=== PATIENT | female | born 1965 | race American Indian/Alaskan Native ===

== ENCOUNTER 2016-12-18 07:50 | Inpatient (IN) | payer SELFPAY ==
[2016-12-18] MEDS ORDERED: ATROVENT IH ONE (12:42)
--- NOTE | 2016-12-18 13:48 | History and Physical Report ---
History of Present Illness Date of examination: 12/18/16 Chief complaint: SOB History of present illness: 51-year-old woman with a history of hypertension, diabetes, COPD, CHF, hypothyroidism, obstructive sleep apnea, morbid obesity comes [facility] emergency room because of severe worsening acute onset today of shortness of breath and cough productive of yellow phlegm, Patient denies chest pain, palpitation, abdominal pain, hematochezia, dysuria, frequency, focal weakness, dysarthria, fever, chills, polydipsia, polyuria, hot or cold intolerance, easy bruisability , or rash or bleeding from mucosal membrane, rhinorrhea, epistaxis, earache, tinnitus, blurry vision, eye discharge, anxiety, depression. Other review of systems negative Past History Past Medical History: other (as hpi) Past Surgical History: (x 2) Social history: full code. denies: smoking, alcohol abuse, prescription drug abuse, IV drug use Family history: diabetes, hypertension, other Medications and Allergies Allergies Allergy/AdvReac Type Severity Reaction Status Date / Time No Known Allergies Allergy Unverified 09/19/14 04:40 Home Medications Medication Instructions Recorded Confirmed Last Taken Type Levothyroxine [Synthroid] 25 mcg PO QAM #30 tablet 01/22/16 11/05/16 08/19/16 Rx Albuterol Sulfate [Ventolin HFA] 2 puff IH Q4H PRN #1 hfa.aer.ad 07/04/1608/20/16 Rx Moxifloxacin 0.5% [Vigamox] 1 drops OU Q8HR bottle 08/24/16 11/05/16 11/04/16 Rx 1 Arformoterol Nebu [Brovana Nebu] 15 mcg IH Q12HRT #60 ml 10/04/16 11/05/1611/03 16:00 Rx Aspirin 81 mg PO DAILY #30 tab.chew 10/04/16 11/05/16 Unknown Rx AtorvaSTATin [Lipitor] 40 mg PO QHS #30 tablet 10/04/16 11/05/16 Unknown Rx FLUoxetine [PROzac] 20 mg PO QDAY #30 capsule 10/04/16 11/05/16 Unknown Rx Ferrous Sulfate [Feosol 325 MG tab] 325 mg PO QDAY #90 tablet 10/04/16 11/05/16 Unknown Rx Furosemide [Lasix TAB] 20 mg PO QDAY #30 tablet 10/04/16 11/05/16 Unknown Rx Insulin Glulisine [Apidra] 0 units SUB-Q ACHS 30 Days 10/04/16 11/05/16 Unknown Rx Insulin NPH/Regular [NovoLIN 70/30] 35 unit SUB-Q BIDDIAB #1 vial 10/04/1611/05 Unknown Rx Albuterol Sulfate [Albuterol 0.63% 0.63 mg IH TID PRN #1 vial.neb 11/10/16 Unknown Rx NEBS] Levofloxacin [Levaquin] 750 mg PO QDAY #4 tablet 11/10/16 Unknown Rx Prednisone [predniSONE 10 mg 10 mg PO .TAPER #1 tab.ds.pk 11/10/16 Unknown Rx (6-Day Pack, 21 Tabs)] Tiotropium [place] [Spiriva 4 gm IH DAILY #30 mist.inhal 11/10/16 Unknown Rx Respimat] Active Meds: Active Medications Heparin Sodium (Porcine) (Heparin) 5,000 unit SUB-Q Q8HR [place] Review of Systems All systems: negative (as HPI and all other ROS reviewed and negative.) Exam - Physical Exam Narrative exam: VSS reviewed GEN: extreme obesity, >40 lbs, ill appearing, NAD, AWAKE, ALERT, ORIENTATED x 3 HEENT: NCAT, PERRL, EOMI, OP CLEAR NECK: SUPPLE, NO THYROMEGALY, NO JVD, NO LAD CVS: RRR, NORMAL S1S2 LUNGS/CHEST: bilateral rhonchi, NORMAL CHEST EXPANSION B, GOOD AIR ENTRY B ABD: SOFT NTND, GBS, NO REBOUND OR GUARDING EXT/SKIN: NO SIGNIFICANT EDEMA OR RASH MSK: FROM X 4 EXTREMITIES NEURO: CN 2-12 GROSSLY INTACT, NO FOCAL DEFICITS PSY: CALM Results - Imaging and Cardiology Chest x-ray: image reviewed Assessment and Plan [employer] EMR is not functioning properly, vitals and labs not crossing over into the system. Patient is a 51-year-old woman with a history of chronic respiratory failue on 3 liters of o2 at home due to COPD, hypertension, diabetes, CHF, hypothyroidism , obstructive sleep apnea, extreme obesity who presents to [facility] emergency room because of severe worsening acute onset today of shortness of breath and cough productive of yellow phlegm, Patient denies chest pain, palpitation, abdominal pain, hematochezia, dysuria, frequency, focal weakness, dysarthria, fever, chills, polydipsia, polyuria, hot or cold intolerance, easy bruisability, or rash or bleeding from mucosal membrane, rhinorrhea, epistaxis, earache, tinnitus , blurry vision, eye discharge, anxiety, depression. Other review of systems negative. pO2 only 58 on 3 liters. 1. Acute on chronic combined respiratory failure: increase O2 2. Acute exacerbation COPD: IV steroids, broad-spectrum antibiotic and nebulizer treatments 3. Extreme Obesity with suspected DINESH: needs sleep study, she agrees and this time she will re-schedule sleep study. 4. DVT prophylaxis: SCDs and subcutaneous Lovenox 5. Uncontrolled type 2 diabetes mellitus: Add sliding-scale insulin Full code Disposition: Inpatient admission
[2016-12-18] MEDS ORDERED: TYLENOL PO PRN (14:14)
[2016-12-18] MEDS ORDERED: ZOFRAN IV PRN (14:14)
[2016-12-18] MEDS ORDERED: PROVENTIL IH PRN (14:15)
[2016-12-18] MEDS: BABY ASPIRIN PO SCH (15:28)
--- NOTE | 2016-12-18 15:34 | Admit Criteria Form ---
Admission Criteria Documentation: COPD Clinical Indications for Admission to Inpatient Care (Place 'X' for any and all applicable criteria): Admission is indicated for ANY ONE of the following (1)(2)(3): [ ]I. Acute exacerbation by high-risk comorbidity (e.g., pneumonia, dysrhythmia, heart failure, pleural effusion, pneumothorax) or severe underlying COPD (e.g., steroid dependent) [ X]II. Inpatient admission required rather than observation care (see Chronic Obstructive Pulmonary Disease: Observation Care) because of ANY ONE of the following: [ X]a) New or pre-existing signs or symptoms of COPD (eg, dyspnea or Tachypnea at rest or with minimal activity) that persist despite outpatient and observation care treatment [ ]b) New-onset hypoxemia (room air SaO2 less than 90%, PO2 less than 60 mm Hg (8.0 kPa)) that persists despite outpatient and observation care treatment [ ]c) Worsening of pre-existing hypoxemia (eg, new or increased requirement for supplemental oxygen to maintain oxygenation at baseline level) that persists despite outpatient and observation care treatment, with oxygen treatment needs performable only in acute inpatient setting [ ]d) Hypercarbia (PCO2 greater than 40 mm Hg (5.3 kPa))-induced respiratory acidosis (pH less than 7.35) that persists despite outpatient and observation care treatment [ ]e) Supplemental oxygen or respiratory treatments for over 24 hours that are performable only in acute inpatient setting [ ]f) Chest tube placement with active evacuation (e.g., suction, drainage) (5) [ ]g) Other condition, treatment or monitoring requiring inpatient admission [ ]III. Planned invasive surgical or diagnostic procedures requiring acute- care hospitalization [X ]IV. Acute respiratory failure (e.g., uncompensated hypercarbia, severe hypoxemia) [ ]V. Severe comorbid condition (e.g., severe steroid myopathy, acute vertebral fracture) that has acutely worsened pulmonary function [ ]. Confusion state, lethargy, obtundation, stupor or coma Extended stay beyond goal length of stay may be needed for (31)(32): [ ]a ) Respiratory Failure. [ ]b) Severe or persisting hypoxemia or hypercarbia [ ]c) Severe or persistent dyspnea [ ]d) Comorbidities (e.g. chronic heart failure, atrial fibrillation with rapid response, pneumonia) [ ]e) Malnutrition The original [facility] content created by [facility] has been revised. The portions of the content which have been revised are identified through the use of italic text or in bold, and [facility] has neither reviewed nor approved the modified material. All other unmodified content is copyright [facility]. Please see references footnoted in the original [facility] edition 2016 Admission Criteria Met: Yes
--- NOTE | 2016-12-18 16:48 | XRay Report ---
Right knee: There is narrowing of the medial joint space with periarticular spurs. The articular margins appear generally preserved. There is relatively good alignment of the knee. The patient has an abundance of soft tissues. There is no obvious effusion but I do not see the bursa well. Impression: Degenerative medial joint compartment changes. Compromised evaluation for joint effusion. Portable chest: The lungs appear generally clear. The heart may be enlarged but there is no overt vascular congestion. No obvious interval change compared to November 04, 2016.
[2016-12-18] MEDS: DUONEB 0.5 MG-3 MG/3 ML SOLN IH SCH ×2 (17:38→19:21)
[2016-12-18] MEDS ORDERED: DUONEB 0.5 MG-3 MG/3 ML SOLN IH ONE (19:15)
[2016-12-18] MEDS ORDERED: BROVANA NEBU IH ONE (19:16)
[2016-12-18] MEDS: BROVANA NEBU IH SCH (19:21)
[2016-12-18] MEDS: VIGAMOX OU SCH (23:50)
[2016-12-19] MEDS: VIGAMOX OU SCH ×3 (05:30→23:27)
[2016-12-19] MEDS: DUONEB 0.5 MG-3 MG/3 ML SOLN IH SCH ×4 (07:59→20:38)
[2016-12-19] MEDS: BROVANA NEBU IH SCH ×2 (07:59→20:25)
[2016-12-19] MEDS: ROCEPHIN/NS 1 GM/50 ML 1 GM/50 ML BAG IV SCH (10:21)
[2016-12-19] MEDS: PROzac PO SCH (10:24)
[2016-12-19] MEDS: SYNTHROID PO SCH (10:24)
[2016-12-19] MEDS: FEOSOL PO SCH (10:24)
[2016-12-19] MEDS: LASIX PO SCH (10:24)
[2016-12-19] MEDS: HEPARIN SUB-Q SCH ×3 (10:25→23:32)
[2016-12-19] MEDS: ZITHROMAX 500 MG in NACL 0.9% 250ML 250 ML IV SCH (10:25)
[2016-12-19] MEDS: BABY ASPIRIN PO SCH (10:25)
[2016-12-19] MEDS: NOVOLOG SUB-Q SCH ×2 (17:11→23:26)
--- NOTE | 2016-12-19 19:18 | Progress Note ---
Assessment and Plan Assessment and plan: 1. Acute on chronic respiratory failure Secondary to a COPD exacerbation combined with DINESH/OHS due to her morbid obesity 2. COPD exacerbation With failed outpatient treatment Started on antibiotics, IV corticosteroids, inhaled bronchodilators, supplemental oxygen, BiPAP 3. Morbid obesity Counseled regarding importance of losing weight and lifestyle changes 4. DINESH/OHS On CPaP at home, but not using it (setting have not been adjusted for years) 5. DM Accu-checks and SSI 6. HTN BP controlled on Lasix 7. HPL On statin 8. Hypothyroidism On Levothyroxine 9. Iron deficient anemia On supplementation 10. Depression On Fluoxetine 11. DVT prophylaxis History Interval history: significantly SOB, wheezing, on BiPAP Hospitalist Physical - Constitutional Vitals: Temp Pulse Resp BP Pulse Ox 99.0 F 88 18 137/78 94 12/19/16 07:20 12/19/16 17:10 12/19/16 17:10 12/19/16 15:25 12/19/16 08:02 General appearance: Present: mild distress, other (morbidly obese) - EENT Eyes: Present: PERRL, EOM intact - Neck Neck: Present: other (large neck). Absent: enlarged thyroid, masses or JVD - Respiratory Respiratory effort: labored Respiratory: bilateral: diminished, rhonchi, wheezing - Cardiovascular Rhythm: regular Heart Sounds: Present: S1 & S2. Absent: systolic murmur - Extremities Extremities: no ischemia - Abdominal General gastrointestinal: soft, non-tender, non-distended, normal bowel sounds - Integumentary Integumentary: Present: warm, dry. Absent: jaundice, rash - Neurologic Neurologic: CNII-XII intact, no focal deficits Results - Labs Labs: Laboratory Last Values POC Glucose 406 (70-105) H 12/19/16 17:02 - Imaging and Cardiology Chest x-ray: image reviewed (no acute process)
[2016-12-20] MEDS: VIGAMOX OU SCH ×3 (06:42→21:33)
[2016-12-20] MEDS: HEPARIN SUB-Q SCH ×3 (06:49→21:36)
[2016-12-20] MEDS: NOVOLOG SUB-Q SCH ×4 (08:45→22:03)
[2016-12-20] MEDS: DUONEB 0.5 MG-3 MG/3 ML SOLN IH SCH ×4 (09:45→19:18)
[2016-12-20] MEDS: BROVANA NEBU IH SCH ×2 (09:45→19:18)
[2016-12-20] MEDS: FEOSOL PO SCH (10:40)
[2016-12-20] MEDS: PROzac PO SCH (10:40)
[2016-12-20] MEDS: LASIX PO SCH (10:40)
[2016-12-20] MEDS: SYNTHROID PO SCH (10:40)
[2016-12-20] MEDS: BABY ASPIRIN PO SCH (10:40)
[2016-12-20] MEDS: ZITHROMAX 500 MG in NACL 0.9% 250ML 250 ML IV SCH (10:44)
[2016-12-20] MEDS: ROCEPHIN/NS 1 GM/50 ML 1 GM/50 ML BAG IV SCH (13:04)
--- NOTE | 2016-12-20 19:16 | Progress Note ---
Assessment and Plan Assessment and plan: 1. Acute on chronic respiratory failure Secondary to a COPD exacerbation combined with DINESH/OHS due to her morbid obesity 2. COPD exacerbation With failed outpatient treatment Continue antibiotics, IV corticosteroids (dose decreased), inhaled bronchodilators, supplemental oxygen, BiPAP 3. Morbid obesity Counseled regarding importance of losing weight and lifestyle changes 4. DINESH/OHS On CPAP at home, but not using it (setting have not been adjusted for years) 5. DM Accu-checks and SSI; BS elebvated due to CS 6. HTN BP controlled on Lasix 7. HPL On statin 8. Hypothyroidism On Levothyroxine 9. Iron deficient anemia On supplementation 10. Depression On Fluoxetine 11. DVT prophylaxis Heparin subcutaneous History Interval history: still SOB, wheezing less; encouraged to increase her activity - out of bed, walk to the restroom at least Hospitalist Physical - Constitutional Vitals: Temp Pulse Resp BP Pulse Ox 97.8 F 85 18 157/86 98 12/20/16 12:00 12/20/16 15:51 12/20/16 15:51 12/20/16 12:00 12/20/16 12:00 General appearance: Present: mild distress, other (morbidly obese) - Neck Neck: Present: supple. Absent: enlarged thyroid, masses or JVD - Respiratory Respiratory effort: labored Respiratory: bilateral: diminished, rhonchi, wheezing - Cardiovascular Rhythm: regular Heart Sounds: Present: S1 & S2. Absent: systolic murmur - Extremities Extremities: no ischemia - Abdominal General gastrointestinal: soft, non-tender, non-distended, normal bowel sounds - Integumentary Integumentary: Present: warm, dry. Absent: jaundice, rash - Neurologic Neurologic: CNII-XII intact, no focal deficits Results - Labs Labs: Laboratory Last Values POC Glucose 436 (70-105) H 12/20/16 15:49
[2016-12-21] MEDS: VIGAMOX OU SCH ×3 (05:07→22:25)
[2016-12-21] MEDS: HEPARIN SUB-Q SCH ×3 (05:08→22:25)
[2016-12-21] MEDS: NOVOLOG SUB-Q SCH ×4 (06:54→23:00)
[2016-12-21] MEDS: FEOSOL PO SCH (09:24)
[2016-12-21] MEDS: PROzac PO SCH (09:24)
[2016-12-21] MEDS: LASIX PO SCH (09:24)
[2016-12-21] MEDS: SYNTHROID PO SCH (09:24)
[2016-12-21] MEDS: BABY ASPIRIN PO SCH (09:24)
[2016-12-21] MEDS: DUONEB 0.5 MG-3 MG/3 ML SOLN IH SCH ×4 (10:12→20:02)
[2016-12-21] MEDS: BROVANA NEBU IH SCH ×2 (10:12→20:02)
[2016-12-21] MEDS: NORCO 5/325 PO PRN ×2 (11:14→15:53)
[2016-12-21] MEDS: ROCEPHIN/NS 1 GM/50 ML 1 GM/50 ML BAG IV SCH (11:49)
[2016-12-21] MEDS: ZITHROMAX 500 MG in NACL 0.9% 250ML 250 ML IV SCH (11:50)
--- NOTE | 2016-12-21 18:25 | Progress Note ---
Assessment and Plan Assessment and plan: 1. Acute on chronic respiratory failure Secondary to a COPD exacerbation combined with DINESH/OHS due to her morbid obesity 2. COPD exacerbation With failed outpatient treatment Continue antibiotics, IV corticosteroids (taper), inhaled bronchodilators, supplemental oxygen, BiPAP 3. Morbid obesity Counseled regarding importance of losing weight and lifestyle changes 4. DINESH/OHS On CPAP at home, but not using it (setting have not been adjusted for years) 5. DM Accu-checks and SSI; BS elebvated due to CS 6. HTN BP controlled on Lasix 7. HPL On statin 8. Hypothyroidism On Levothyroxine 9. Iron deficient anemia On supplementation 10. Depression On Fluoxetine 11. DVT prophylaxis Heparin subcutaneous History Interval history: SOB improved, feeling better; decond due to her morbid obesity Hospitalist Physical - Constitutional Vitals: Temp Pulse Resp BP Pulse Ox 97.9 F 76 18 122/92 93 12/21/16 08:00 12/21/16 16:44 12/21/16 16:44 12/21/16 08:00 12/21/16 18:01 General appearance: Present: no acute distress, obese (morbidly) - EENT Eyes: Present: PERRL, EOM intact - Neck Neck: Present: supple. Absent: enlarged thyroid, masses or JVD - Respiratory Respiratory effort: labored (with minimal activity) Respiratory: bilateral: diminished, wheezing, negative: rales - Cardiovascular Rhythm: regular Heart Sounds: Present: S1 & S2. Absent: systolic murmur - Extremities Extremities: no ischemia - Abdominal General gastrointestinal: soft, non-tender, non-distended, normal bowel sounds - Psychiatric Psychiatric: cooperative - Neurologic Neurologic: CNII-XII intact, no focal deficits Results - Labs Labs: Laboratory Last Values POC Glucose 363 (70-105) H 12/21/16 17:26
[2016-12-22] MEDS: HEPARIN SUB-Q SCH ×3 (05:39→21:54)
[2016-12-22] MEDS: VIGAMOX OU SCH ×3 (05:41→21:53)
[2016-12-22] MEDS: DUONEB 0.5 MG-3 MG/3 ML SOLN IH SCH ×3 (08:23→19:49)
[2016-12-22] MEDS: BROVANA NEBU IH SCH ×2 (08:23→19:49)
[2016-12-22] MEDS: NOVOLOG SUB-Q SCH ×4 (08:43→23:36)
[2016-12-22] MEDS: NORCO 5/325 PO PRN ×2 (09:20→14:59)
[2016-12-22] MEDS: FEOSOL PO SCH (09:21)
[2016-12-22] MEDS: SYNTHROID PO SCH (09:21)
[2016-12-22] MEDS: PROzac PO SCH (09:22)
[2016-12-22] MEDS: BABY ASPIRIN PO SCH (09:22)
[2016-12-22] MEDS: LASIX PO SCH (09:22)
[2016-12-22] MEDS: ROCEPHIN/NS 1 GM/50 ML 1 GM/50 ML BAG IV SCH (09:23)
[2016-12-22] MEDS: DELTASONE PO SCH (09:24)
[2016-12-22] MEDS: ZITHROMAX 500 MG in NACL 0.9% 250ML 250 ML IV SCH (11:32)
--- NOTE | 2016-12-22 16:47 | Progress Note ---
Assessment and Plan Assessment and plan: 1. Acute on chronic respiratory failure Secondary to a COPD exacerbation combined with DINESH/OHS due to her morbid obesity 2. COPD exacerbation With failed outpatient treatment Continue antibiotics, corticosteroids switched to po and dose decreased, inhaled bronchodilators, supplemental oxygen, CPAP as needed 3. Morbid obesity Counseled regarding importance of losing weight and lifestyle changes 4. DINESH/OHS On CPAP at home, but not using it (setting have not been adjusted for years) 5. DM Accu-checks and SSI; BS elebvated due to CS 6. HTN BP controlled on Lasix 7. HPL On statin 8. Hypothyroidism On Levothyroxine 9. Iron deficient anemia On supplementation 10. Depression On Fluoxetine 11. DVT prophylaxis Heparin subcutaneous 12.Discharge planning issues Consult piano case and bench assembler for assistance at discharge (PCP, home oxygen, CPAP) History Interval history: SOB improved, feeling better; decond due to her morbid obesity; working to improve her physical tolerance Hospitalist Physical - Constitutional Vitals: Temp Pulse Resp BP Pulse Ox 97.8 F 80 18 125/70 98 12/22/16 10:08 12/22/16 14:32 12/22/16 14:32 12/22/16 10:08 12/22/16 10:08 General appearance: Present: no acute distress, obese (morbidly) - EENT Eyes: Present: PERRL, EOM intact - Neck Neck: Present: supple, normal ROM. Absent: masses or JVD - Respiratory Respiratory effort: normal (at rest, labored with activity) Respiratory: bilateral: diminished, negative: rhonchi, wheezing - Cardiovascular Rhythm: regular Heart Sounds: Present: S1 & S2. Absent: systolic murmur - Extremities Extremities: no ischemia - Abdominal General gastrointestinal: soft, non-tender, non-distended, normal bowel sounds - Integumentary Integumentary: Present: warm, dry. Absent: jaundice, rash - Psychiatric Psychiatric: cooperative - Neurologic Neurologic: CNII-XII intact, no focal deficits Results - Labs Labs: Laboratory Last Values POC Glucose 312 (70-105) H 12/22/16 06:34
[2016-12-23] MEDS: VIGAMOX OU SCH ×2 (05:14→14:31)
[2016-12-23] MEDS: HEPARIN SUB-Q SCH ×2 (05:15→14:31)
[2016-12-23] MEDS: DUONEB 0.5 MG-3 MG/3 ML SOLN IH SCH ×2 (07:51→13:34)
[2016-12-23] MEDS: BROVANA NEBU IH SCH (07:54)
[2016-12-23] MEDS: NOVOLOG SUB-Q SCH ×2 (08:30→12:35)
[2016-12-23 09:16] VITALS: BP 124/68
--- NOTE | 2016-12-23 09:21 | Discharge Summary ---
Providers - Providers Date of Admission: 12/18/16 13:36 Date of discharge: 12/23/16 Attending physician: TISHA CARD Primary care physician: KENNEDY MORENO MD Hospitalization Reason for admission: worsening shortness of breath Condition: Stable Pertinent studies: Chest x-ray Hospital course: Patient is a 51 years old morbidly obese -French female with COPD, DINESH/ OHS on CPAP at home, but not using it, who presented to the hospital complaining of worsening shortness of breath. She was diagnosed with acute on chronic respiratory failure secondary to COPD exacerbation superimposed on her DINESH/OHS. She was started on antibiotics, IV corticosteroids initially, inhaled bronchodilators, supplemental oxygen and BiPAP. She improved very slowly, completed antibiotic course and was switched to corticosteroids by mouth and is discharged in stable condition; she will need a close PCP follow-up; counseled extensively regarding importance of lifestyle changes, losing weight, using CPAP ; follow-up with pulmonary advised and information given. Discharge diagnosis: Acute on chronic respiratory failure COPD exacerbation DINESH/OHS Morbid obesity Diabetes type 2 Hypertension Hyperlipidemia Hypothyroidism Depression Disposition: DISCHARGED TO HOME OR SELFCARE Time spent for discharge: 35 minutes Core Measure Documentation - Palliative Care Palliative Care/ Comfort Measures: Not Applicable - Core Measures Any of the following diagnoses?: none Exam - Physical Exam Narrative exam: Patient seen and examined: - Constitutional Vitals: Temp Pulse Resp BP Pulse Ox 98.4 F 76 16 130/78 97 12/23/16 00:00 12/23/16 07:55 12/23/16 07:55 12/23/16 00:00 12/23/16 07:56 General appearance: Present: no acute distress, obese (morbidly) - EENT Eyes: Present: PERRL, EOM intact - Neck Neck: Present: supple, normal ROM. Absent: masses or JVD - Respiratory Respiratory effort: normal Respiratory: bilateral: diminished, negative: rhonchi, wheezing - Cardiovascular Rhythm: regular Heart Sounds: Present: S1 & S2. Absent: systolic murmur - Extremities Extremities: no ischemia - Abdominal General gastrointestinal: Present: soft, non-tender, non-distended, normal bowel sounds - Musculoskeletal Musculoskeletal: generalized weakness - Psychiatric Psychiatric: cooperative - Neurologic Neurologic: CNII-XII intact, no focal deficits Plan Activity: advance as tolerated, no driving until cleared by PCP Diet: low cholesterol, low salt, diabetic Follow up with: PRIMARY CARE, [Primary Care Provider] - 7 Days [facility] [Outside] - 7 Days NINO HILLS MD [Staff Physician] - 10 Days Prescriptions: AtorvaSTATin [Lipitor] 40 mg PO QHS #30 tablet Albuterol Sulfate [Albuterol 0.63% NEBS] 0.63 mg IH TID PRN #1 vial.neb PRN Reason: Wheezing Albuterol Sulfate [Ventolin HFA] 2 puff IH Q4H PRN #1 hfa.aer.ad PRN Reason: Shortness Of Breath Arformoterol Nebu [Brovana Nebu] 15 mcg IH Q12HRT #60 ml Aspirin 81 mg PO DAILY #30 tab.chew Ferrous Sulfate [Feosol 325 MG tab] 325 mg PO QDAY #90 tablet FLUoxetine [PROzac] 20 mg PO QDAY #30 capsule Furosemide [Lasix TAB] 20 mg PO QDAY #30 tablet Insulin NPH/Regular [NovoLIN 70/30] 35 unit SUB-Q BIDDIAB #1 vial Levothyroxine [Synthroid] 25 mcg PO QAM #30 tablet predniSONE [Deltasone] 60 mg PO QDAY #14 tablet Tiotropium [place] [Spiriva Respimat] 4 gm IH DAILY #30 mist.inhal Pending Studies after antibiotics given
[2016-12-23] MEDS: ROCEPHIN/NS 1 GM/50 ML 1 GM/50 ML BAG IV SCH (09:28)
[2016-12-23] MEDS: BABY ASPIRIN PO SCH (09:29)
[2016-12-23] MEDS: LASIX PO SCH (09:29)
[2016-12-23] MEDS: FEOSOL PO SCH (09:29)
[2016-12-23] MEDS: PROzac PO SCH (09:29)
[2016-12-23] MEDS: DELTASONE PO SCH (09:39)
[2016-12-23] MEDS: SYNTHROID PO SCH (09:39)
[2016-12-23] MEDS: ZITHROMAX 500 MG in NACL 0.9% 250ML 250 ML IV SCH (11:27)
== END 2016-12-23 14:55 | disposition home or self-care (01) | DRG 190 ==
LOC: ED 07:50 → 3A 13:36
PROVIDERS: ADMIT Internal Medicine; ATTEND Internal Medicine
PROC: 5A09357 Assistance with Respiratory Ventilation, Less than 24 Consecutive Hours, Continuous Positive Airway Pressure (ICD-10-PCS; principal; 2016-12-20)
DX: J44.1 Chronic obstructive pulmonary disease with (acute) exacerbation (principal); J96.20 Acute and chronic respiratory failure, unspecified whether with hypoxia or hypercapnia; Z68.45 Body mass index [BMI] 70 or greater, adult; I11.0 Hypertensive heart disease with heart failure; E11.9 Type 2 diabetes mellitus without complications; I50.9 Heart failure, unspecified; E03.9 Hypothyroidism, unspecified; G47.33 Obstructive sleep apnea (adult) (pediatric); E66.01 Morbid (severe) obesity due to excess calories; D50.9 Iron deficiency anemia, unspecified; F32.9 Major depressive disorder, single episode, unspecified; E78.5 Hyperlipidemia, unspecified; Z82.49 Family history of ischemic heart disease and other diseases of the circulatory system; Z83.3 Family history of diabetes mellitus
CPT/HCPCS: 71010; 82962; 93005; 93010; 94640; 94660; 94760; A9270-GY; J0456; J0696; J1644; J1815; J2930; J7050; J7512

== ENCOUNTER 2017-01-07 12:30 | Outpatient (CLI) | payer OTHER ==
[2017-01-07] MEDS ORDERED: PROVENTIL IH ONE (12:44)
--- NOTE | 2017-01-07 15:02 | XRay Report ---
RIGHT HIP, 2 views: History: Right hip pain. The bony architecture is intact without evidence of fracture or dislocation. No significant soft tissue abnormality is seen. IMPRESSION: Normal right hip.
--- NOTE | 2017-01-08 08:36 | XRay Report ---
RIGHT KNEE, 2 VIEWS: HISTORY: Right knee pain. FINDINGS: Compared to 12/18/16. Moderate medial compartment joint space narrowing is identified. There is no evidence for fracture, bone lesion or large joint effusion. Bipartite patella is noted. IMPRESSION: Osteoarthritic changes. No acute process identified.
== END 2017-01-07 12:31 | disposition home or self-care (01) ==
LOC: PF 12:30
PROVIDERS: ATTEND Internal Medicine
DX: I11.0 Hypertensive heart disease with heart failure (principal); I50.9 Heart failure, unspecified; E11.9 Type 2 diabetes mellitus without complications; D64.9 Anemia, unspecified; J45.909 Unspecified asthma, uncomplicated; G47.30 Sleep apnea, unspecified; F32.9 Major depressive disorder, single episode, unspecified; E03.9 Hypothyroidism, unspecified; R56.9 Unspecified convulsions; R09.89 Other specified symptoms and signs involving the circulatory and respiratory systems; Q74.1 Congenital malformation of knee
CPT/HCPCS: 94060; 94640

== ENCOUNTER 2017-03-10 06:14 | Inpatient (IN) | payer OTHER ==
[2017-03-10 07:29] LABS: Basophils % (Auto) 0.8 % (0.0-1.8); Eosinophils % (Auto) 1.8 % (0.0-4.3); Hemoglobin 12.3 gm/dl (10.1-14.3); Mean Corpuscular HGB Conc 33 % (30-34); Mean Corpuscular Hemoglobin 31 pg (28-32); Mean Corpuscular Volume 93 fl (79-97); Platelet Count 249 K/mm3 (140-440); Red Blood Count 3.97 M/mm3 (3.65-5.03); Red Cell Distribution Width 13.6 % (13.2-15.2); White Blood Count 8.9 K/mm3 (4.5-11.0)
[2017-03-10 07:46] LABS: Anion Gap 15 mmol/L; BUN/Creatinine Ratio 15.71; Blood Urea Nitrogen 11 mg/dL (7-17); Calcium 10.2 mg/dL (8.4-10.2); Carbon Dioxide 33 mmol/L (22-30); Chloride 88.1 mmol/L (98-107); Glucose 345 mg/dL (65-100); Potassium 3.5 mmol/L (3.6-5.0); Sodium 133 mmol/L (137-145)
[2017-03-10] MEDS ORDERED: BABY ASPIRIN PO ONE (07:58)
--- NOTE | 2017-03-10 08:07 | Emergency Department Report ---
HPI - General Chief Complaint: Dyspnea/Respdistress Time Seen by Provider: 03/10/17 07:27 - HPI HPI: This is a 51-year-old Afro-[place]i female who presents to the emergency department by EMS from home with complaint of a 2-3 day history of progressively worsening shortness of breath. The patient has a history of CHF, COPD, diabetes, hypertension, hypothyroidism, sleep apnea, anemia. The patient uses a CPAP machine at home and says she is compliant with this. She is supposed to be on oxygen for COPD but says that the oxygen machine is not working. She is also been out of her meds for the past week. She does not currently have a primary care doctor, splunk developer, blade sharpener or any physicians that she follows up with a regular basis. The symptoms of shortness of breath worsened when she lays down flat. She denies any chest pain, fever, back pain. She does have an associated productive cough with yellowish thick sputum. No recent travel or sick contacts at home. ED Past Medical Hx - Past Medical History Previous Medical History?: Yes Hx Hypertension: Yes Hx Heart Attack/AMI: No Hx Congestive Heart Failure: Yes Hx Diabetes: Yes Hx Deep Vein Thrombosis: No Hx Liver Disease: No Hx Renal Disease: No Hx Sickle Cell Disease: No Hx Arthritis: No Hx Seizures: Yes (In past) Hx Psychiatric Treatment: Yes (depression) Hx Asthma: No Hx COPD: Yes Hx Tuberculosis: No Hx Dementia: No Hx HIV: No Additional medical history: anemia, hypothyroidism, sleep apnea, CPAP machine at home - Surgical History Hx Coronary Stent: No Hx Pacemaker: No Hx Internal Defibrillator: No Additional Surgical History: x 1 - Social History Smoking Status: Never Smoker Substance Use Type: None - Medications Home Medications: Home Medications Medication Instructions Recorded Confirmed Last Taken Type Insulin Glulisine [Apidra] 0 units SUB-Q ACHS 30 Days 10/04/16 12/18/16 Unknown Rx Albuterol Sulfate [Albuterol 0.63% 0.63 mg IH TID PRN #1 vial.neb 12/23/1603/10 Unknown Rx NEBS] Albuterol Sulfate [Ventolin HFA] 2 puff IH Q4H PRN #1 hfa.aer.ad 12/23/16 Unknown Rx Arformoterol Nebu [Brovana Nebu] 15 mcg IH Q12HRT #60 ml 12/23/16 03/10/17 Unknown Rx Aspirin 81 mg PO DAILY #30 tab.chew 12/23/16 03/10/17 Unknown Rx FLUoxetine [PROzac] 20 mg PO QDAY #30 capsule 12/23/16 03/10/17 Unknown Rx Ferrous Sulfate [Feosol 325 MG tab] 325 mg PO QDAY #90 tablet 12/23/16 03/10/17 Unknown Rx Furosemide [Lasix TAB] 20 mg PO QDAY #30 tablet 12/23/16 03/10/17 Unknown Rx Insulin NPH/Regular [NovoLIN 70/30] 35 unit SUB-Q BIDDIAB #1 vial 12/23/16 Unknown Rx Levothyroxine [Synthroid] 25 mcg PO QAM #30 tablet 12/23/16 Unknown Rx Tiotropium [place] [Spiriva 4 gm IH DAILY #30 mist.inhal 12/23/16 Unknown Rx Respimat] predniSONE [Deltasone] 60 mg PO QDAY #14 tablet 12/23/16 Unknown Rx ED Review of Systems ROS: Stated complaint: ERIN Other details as noted in HPI Comment: All other systems reviewed and negative Constitutional: denies: chills, fever Eyes: denies: eye pain, eye discharge, vision change ENT: denies: ear pain, throat pain Respiratory: cough, shortness of breath Cardiovascular: denies: chest pain, palpitations Gastrointestinal: denies: abdominal pain, nausea, diarrhea Genitourinary: denies: urgency, dysuria, discharge Musculoskeletal: denies: back pain, joint swelling, arthralgia Skin: denies: rash, lesions Neurological: denies: headache, weakness, paresthesias Physical Exam - Physical Exam Vital Signs: Vital Signs 03/10/17 03/10/17 06:42 07:30 Temperature 98.2 F 98.3 F Pulse Rate 77 84 Respiratory 20 Rate Blood Pressure 199/110 Blood Pressure 164/101 [Left] O2 Sat by Pulse 90 96 Oximetry Physical Exam: GENERAL: The patient is well-developed well-nourished. HEENT: Normocephalic. Atraumatic. Extraocular motions are intact. Patient has moist mucous membranes. Pupils equal reactive to light bilaterally. NECK: Supple. Trachea is midline. CHEST/LUNGS: Mild wheezing throughout the chest. Mild tachypnea but no accessory muscle use. There is no respiratory distress noted. HEART/CARDIOVASCULAR: Regular. There is no tachycardia. There is no gallop rub or murmur. ABDOMEN: Abdomen is soft, nontender. Patient has normal bowel sounds. There is no abdominal distention. Morbidly obese habitus. SKIN: Skin is warm and dry. NEURO: The patient is awake, alert, and oriented. The patient is cooperative. The patient has no focal neurologic deficits. The patient has normal speech. MUSCULOSKELETAL: There is no tenderness or deformity. There is no limitation range of motion. There is no evidence of acute injury. ED Course Vital Signs 03/10/17 03/10/17 06:42 07:30 Temperature 98.2 F 98.3 F Pulse Rate 77 84 Respiratory 20 Rate Blood Pressure 199/110 Blood Pressure 164/101 [Left] O2 Sat by Pulse 90 96 Oximetry - ABG Interpretation Ph: [phone] PCO2: 57 PO2: 62 Bicarbonate: 35 Interpretation: respiratory acidosis, metabolic alkalosis ED Medical Decision Making - Lab Data Result diagrams: 03/10/17 07:08 03/10/17 07:08 - EKG Data -: EKG Interpreted by Me EKG shows normal: sinus rhythm, axis (LAD), intervals, QRS complexes, ST-T waves Rate: normal - EKG Data When compared to previous EKG there are: no significant change Interpretation: unchanged when compared t (12/18/16) - Radiology Data Radiology results: report reviewed, image reviewed interpreted by me: Chest x-ray shows some mild cardiomegaly and pulmonary vascular congestion but no overt pleural effusions, pneumonia or pneumothorax. CT angiography of the chest does not show any evidence of pulmonary embolism. Minimal pericardial fluid. Mild left lower lung scarring. - Medical Decision Making 51-year-old female presents with some shortness of breath going on for the past few days. While the patient has a history of CHF, her BNP is low and there are no obvious pleural effusions on chest x-ray. She has a history of COPD and her oxygen machine has been malfunctioning at home. Her arterial blood gas shows elevated PCO2 level and some hypoxemia appears consistent with a COPD exacerbation. She had a elevated d-dimer so a CT angiography of the chest was done that does not show any pulmonary embolus. She presented with some hyperglycemia but does not appear to have DKA or HHNK. However due to the hyperglycemia, I did not give the patient any Solu-Medrol immediately. She did receive some IV insulin and her blood sugar came down to 1 more reasonable level. The patient will be admitted to the hospital for further evaluation and treatment and has been accepted for admission by the hospitalist, Dr. Martinez. - Differential Diagnosis COPD, CHF, NV, PE, pneumonia Critical Care Time: No Critical care attestation.: If time is entered above; I have spent that time in minutes in the direct care of this critically ill patient, excluding procedure time. ED Disposition Clinical Impression: Morbid obesity with BMI of 45.0-49.9, adult, Hypothyroidism (acquired), DINESH ( obstructive sleep apnea), Shortness of breath, COPD with exacerbation, Elevated troponin Disposition: OP ADMITTED IP TO THIS HOSP Is pt being admited?: Yes Condition: Stable Time of Disposition: 11:23
--- NOTE | 2017-03-10 08:09 | XRay Report ---
AP CHEST History: Shortness of breath. Findings: Heart size and pulmonary vascularity are borderline. No large pleural effusion, consolidation or pneumothorax. No overwhelming change since 12/18/16. Impression: Borderline heart size and pulmonary vascularity but no evidence for CHF.
--- NOTE | 2017-03-10 08:26 | Admit Criteria Form ---
Admission Criteria Documentation: PULMONARY DISEASE GRG Clinical Indications for Admission to Inpatient Care ( Place 'X' for any and all applicable criteria): Hospital admission is needed for appropriate care of the patient because of ANY ONE of the following(1): [ ]I. Impending or actual respiratory arrest ( Use Respiratory Failure Criteria for severe respiratory disease and long-term mechanical ventilation patients) (4) [ ]II. Severe airflow or ventilation abnormalities (not responsive to emergency and observation care treatment as appropriate) as indicated by ANY ONE of the following(5)(6)(7)(8) : [ ]a) PCO2 > 42 mm Hg (5.6 kPa) and pH < 7.35 (new) [ ]b) Documented PCO2 increase > 5 mm Hg (0.7 kPa) from disease baseline [ ]c) Airflow measurements[A] < 60% of previous best or predicted ( e.g., PEF <300 L/minute) despite intensive emergent treatment[B] [ ]d) Required respiratory treatments that are performable only in acute inpatient setting [ ]III. Severe respiratory findings (not responsive to emergency and observation care treatment as appropriate) including ANY ONE of the following(5)(8)(9): [ ]a) Respiratory distress as indicated by ALL of the following(5)(10): [ ]i) Patient with ANY ONE of the following: [ ]1) Dyspnea (difficulty breathing) [ ]2) Abnormal breathing pattern (eg, chest retractions) [ ]3) Tachypnea [ ]4) Other evidence of difficulty breathing [ ]ii) Evidence of respiratory compromise indicated by ANY ONE of the following: [ ]1) Hypoxemia [ ]2) Altered mental status [ ]3) Other evidence of respiratory compromise (eg, pulmonary edema on chest x-ray) [ ]b) Stridor [ ]c) Gross hemoptysis(11) [ ]d) Acute cyanosis [ ]IV. High-risk pulmonary infection as indicated by ANY ONE of the following( 19)(20)(21)(22): [ ]a) Temperature less than 95 degrees F(35 degrees C) or greater than 103.1 degrees F(39.5 degrees C) [ ]b) Hemodynamic instability that remains after emergency or observation level care (as appropriate) [ ]c) Immunocompromised patient (eg, AIDS, post transplant, neutropenic) [ ]d) History of severe COPD [ ]e) History of severely symptomatic congestive heart failure [ ]f) Other high-risk comorbidity (eg, poorly controlled diabetes, cirrhosis, chronic renal insufficiency) [ ]g) Hypoxemia (new) [ ]h) Outpatient, observation, or recovery facility therapy has failed, is not appropriate, or is not feasible [ ]V. Severe atelectasis or lung collapse(15)(16) [ ]. Tuberculosis requiring inpatient treatment as indicated by ANY ONE of the following(17)(18): [ ]a) New positive acid-fast bacilli sputum smear [ ]b) Positive acid-fast bacilli smear (under current treatment), with ANY ONE of the following: [ ]i) Unexposed household contacts [ ]ii) Infants or immunosuppressed household contacts [ ]iii) Patient unable or unwilling to avoid exposing others [ ]iv) Severe immunocompromised patient (eg, AIDS, post transplant, neutropenic) [ ]VII. Empyema or lung abscess(13)(14) [ ]VIII. Severe pulmonary arterial hypertension or pulmonary vascular disease requiring inpatient care indicated by ANY ONE of the following(24)(25): [ ]a) Initiation or change of vasodilators (IV, subcutaneous, or inhaled) or other vasoactive medications needed [ ]b) IV anticoagulation needed (eg, immediate anticoagulation necessary, alternatives not appropriate) [ ]c) Arterial or pulmonary artery catheter monitoring needed due to infusion or other treatment [ ]IX. Chronic lung disease with severe deterioration (not responsive to emergency and observation care treatment as appropriate) as indicated by ANY ONE of the following (6)(12): [ ]a) SaO2 5% below baseline in patient with chronic hypoxemia [ ]b) New requirement for supplemental oxygen to keep SaO2 at baseline or acceptable level [ ]c) Required supplemental oxygen performable only in acute inpatient setting [ ]d) Severe airflow or ventilation abnormalities [ ]e) Rapid rate of exacerbation onset [ ]f) Previously mobile patient unable to walk between rooms [ ]g) Inability to eat or sleep due to dyspnea [ ]h) Altered mental status [ ]X. Cystic fibrosis with severe deterioration as indicated by ANY ONE of the following(26)(27): [ ]a) Severe exacerbation that does not respond to intensified home therapy [ ]b) Pneumonia [ ]c) Hemoptysis [ ]d) Atelectasis [ ]e) Pneumothorax [ ]f) Respiratory failure [ ]g) Severe exacerbation with patient unable to perform prescribed treatments at home [ ]XI. Severe right heart failure as indicated by ANY ONE of the following(24) (25): [ ]a) Increasing organ failure (eg, liver congestion with significant and worsening or new elevation of transaminases) [ ]b) Anasarca [ ]c) Angina that requires inpatient care (eg, not treatable in emergency or observation level of care) [ ]d) Respiratory distress [ ]e) Syncope [ ]f) SBP < 90 mm Hg (new) [ ]XII. Injury requiring inpatient care (medical) as indicated by ANY ONE of the following(28): [ ]a) Significant inhalation injury (eg, smoke inhalation, other toxic inhalation) (29)(30)(31) [ ]b) Airway obstruction that remains or is unstable after emergency or observation level care(32) [ ]c) Severe pain requiring acute inpatient management [ ]d) Lung contusion [ ]e) Bronchial tree injury [ ]f) Air or fat emboli(33) [ ]g) Other injury not treatable in emergency or observation level care (eg, hemothorax) (34) [ ]XIII. Pulmonary hemorrhage or significant hemoptysis(11)(35)(36) [ ]XIV. Inpatient palliative care needed[C](37)(38)(39)(40) [ ]XV. Complications of lung transplant (eg, rejection, failure, respiratory infection) (23) [ ]XVI. Pulmonary Disease and ANY ONE of the following: [ ]a) General Admission Criteria [ ]b) Pediatric General Admission Criteria The original [facility] content created by [facility] has been revised. The portions of the content which have been revised are identified through the use of italic text or in bold, and [facility] has neither reviewed nor approved the modified material. All other unmodified content is copyright [facility]. Please see references footnoted in the original [facility] edition 2016
[2017-03-10] MEDS ORDERED: DUONEB 0.5 MG-3 MG/3 ML SOLN IH ONE (08:34)
[2017-03-10] MEDS ORDERED: NACL ONE (08:44)
[2017-03-10 09:09] LABS: Cholesterol 199 mg/dL (50-199); HDL Cholesterol 84 mg/dL (40-59); LDL Cholesterol,Direct 67 mg/dL (50-130); Triglycerides 243 mg/dL (2-149)
[2017-03-10 09:34] LABS: ISTAT Base Excess 11; ISTAT HCO3 35.9; ISTAT PCO2 57.2 (35-45); ISTAT PH 7.406 (7.35-7.45); ISTAT PO2 62 (80-105); ISTAT SO2 91; ISTAT TCO2 38
--- NOTE | 2017-03-10 11:01 | Cat Scan Report ---
CTA CHEST INDICATION: Shortness of breath, elevated d-dimer. COMPARISON: 06/05/2015 FINDINGS: Chest CTA performed following intravenous administration of 100 cc of Omnipaque 350. Rotational MIP's also obtained. Limited inspiration with possible mild cardiomegaly/exaggerated cardiomediastinal silhouette on the mud mixer helper view with mild pericardial fat pads. Overall heart size appears stable to slightly smaller since the prior exam. Minimal pericardial fluid, approximately 6 mm thickness near the apex, axial image 138, series 2. Stable great vessels. No suspicious pulmonary arterial filling defects. No effusions or size significant adenopathy. Patent central airway. Some streak artifact. No gross thyroid abnormality. Mild left lower lung scarring. Nonspecific distal esophageal wall thickening, not excluded for gastroesophageal reflux and/or hiatal hernia, amongst others. No significant imaged upper abdominal abnormality. Mild multilevel imaged spinal degenerative changes. CONCLUSION: No acute CT evidence of pulmonary embolism with few other incidental findings, as above. Thank you for the opportunity to participate in this patient's care.
--- NOTE | 2017-03-10 12:15 | History and Physical Report ---
History of Present Illness Date of examination: 03/10/17 Date of admission: 03/10/17 11:24 Chief complaint: dyspnea History of present illness: This is a 51-year-old Afro-[place]kin[place] female who presents to the emergency department by EMS from home with complaint of a 2-3 day history of progressively worsening shortness of breath. The patient states that her symptoms first began approximately one week ago. She has a history of CHF, COPD , diabetes, hypertension, hypothyroidism, sleep apnea, anemia. The patient uses a CPAP machine at home and says she is compliant with this. She is supposed to be on oxygen for COPD but says that the oxygen machine is not working. She is also been out of her meds for the past week. Patient reports that she has been having PND and orthopnea. She denies any chest pain, fever, back pain. She does have an associated productive cough with yellowish thick sputum. No recent travel or sick contacts at home. Patient denies any headache or visual disturbances. Past History Past Medical History: anemia, diabetes, heart failure, hypertension, hypothyroidism, seizures, other (depression, sleep apnea) Past Surgical History: Social history: no significant social history Family history: no significant family history Medications and Allergies Allergies Allergy/AdvReac Type Severity Reaction Status Date / Time No Known Allergies Allergy Verified 12/18/16 15:18 Home Medications Medication Instructions Recorded Confirmed Last Taken Type Insulin Glulisine [Apidra] 0 units SUB-Q ACHS 30 Days 10/04/16 12/18/16 Unknown Rx Albuterol Sulfate [Albuterol 0.63% 0.63 mg IH TID PRN #1 vial.neb 12/23/1603/10 Unknown Rx NEBS] Albuterol Sulfate [Ventolin HFA] 2 puff IH Q4H PRN #1 hfa.aer.ad 12/23/16 Unknown Rx Arformoterol Nebu [Brovana Nebu] 15 mcg IH Q12HRT #60 ml 12/23/16 03/10/17 Unknown Rx Aspirin 81 mg PO DAILY #30 tab.chew 12/23/16 03/10/17 Unknown Rx FLUoxetine [PROzac] 20 mg PO QDAY #30 capsule 12/23/16 03/10/17 Unknown Rx Ferrous Sulfate [Feosol 325 MG tab] 325 mg PO QDAY #90 tablet 12/23/16 03/10/17 Unknown Rx Furosemide [Lasix TAB] 20 mg PO QDAY #30 tablet 12/23/16 03/10/17 Unknown Rx Insulin NPH/Regular [NovoLIN 70/30] 35 unit SUB-Q BIDDIAB #1 vial 12/23/16 Unknown Rx Levothyroxine [Synthroid] 25 mcg PO QAM #30 tablet 12/23/16 Unknown Rx Tiotropium [place] [Spiriva 4 gm IH DAILY #30 mist.inhal 12/23/16 Unknown Rx Respimat] predniSONE [Deltasone] 60 mg PO QDAY #14 tablet 12/23/16 Unknown Rx Active Meds: Active Medications Heparin Sodium (Porcine) (Heparin) 5,000 unit SUB-Q Q8HR [place] Review of Systems All systems: negative Exam - Constitutional Vitals: Temp Pulse Resp BP Pulse Ox 98.4 F 80 16 149/70 96 03/10/17 09:50 03/10/17 09:50 03/10/17 09:50 03/10/17 09:50 03/10/17 09:50 General appearance: Present: obese - EENT Eyes: Present: PERRL ENT: hearing intact, clear oral mucosa - Neck Neck: Present: supple, normal ROM - Respiratory Respiratory effort: normal Respiratory: bilateral: diminished, wheezing - Cardiovascular Heart Sounds: Present: S1 & S2. Absent: rub, click - Extremities Extremities: pulses symmetrical, No edema Peripheral Pulses: within normal limits - Abdominal General gastrointestinal: Present: soft, non-tender, non-distended, normal bowel sounds Female genitourinary: Present: normal - Integumentary Integumentary: Present: clear, warm, dry - Musculoskeletal Musculoskeletal: gait normal, strength equal bilaterally - Psychiatric Psychiatric: appropriate mood/affect, intact judgment & insight - Neurologic Neurologic: CNII-XII intact, moves all extremities Results - Labs CBC & Chem 7: 03/10/17 07:08 03/10/17 07:08 Assessment and Plan 1. Acute on chronic respiratory failure Etiology is secondary to a COPD exacerbation combined with DINESH/OHS due to her morbid obesity 2. COPD exacerbation. The patient will be placed on the COPD pathway. We will start IV antibiotics, corticosteroids, inhaled bronchodilators, supplemental oxygen and CPAP as needed 3. Morbid obesity Patient will be counseled regarding importance of losing weight and lifestyle changes 4. DINESH/OHS On CPAP at home, but not using it (setting have not been adjusted for years) 5. DM Accu-checks and SSI 6. HTN Resume antihypertensive medications. 7. HPL Continue statins 8. Hypothyroidism Continue Levothyroxine. Check TSH levels. 9. Iron deficient anemia. Check CBC. Transfuse for hemoglobin less than 7.0. 10. Depression Continue Fluoxetine 11. DVT prophylaxis Lovenox daily.
[2017-03-10] MEDS ORDERED: D50W (25GM) IV PRN (12:19)
[2017-03-10] MEDS ORDERED: TYLENOL PO PRN (12:19)
[2017-03-10] MEDS ORDERED: DULCOLAX PR PRN (12:19)
[2017-03-10] MEDS ORDERED: MILK OF MAGNESIA PO PRN (12:19)
[2017-03-10] MEDS ORDERED: ZOFRAN IV PRN (12:19)
[2017-03-10] MEDS: HEPARIN SUB-Q SCH ×2 (17:16→21:33)
--- NOTE | 2017-03-10 19:59 | Consultation ---
History of Present Illness Consult date: 03/10/17 Reason for consult: dyspnea History of present illness: This is 51 year old ,[place] female Morbidly Obese admitted with shortness of breath and cough with productive yellow sputum. Denies chest pain, sore throat or nasal congestion.Patient has history of CHF,Hypertension Diabetes ,Hypothyroidism,sleep apnea, anemia. Patient may have asthma. She denies smoking , alcohol or drug abuse. 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 Denies allergies to the medications.Patient says uses CPAP and O2 at home.Patient may have Obesity ,hypoventilation. Past History Past Medical History: anemia, diabetes, heart failure, hypertension, hypothyroidism, seizures, other (depression, sleep apnea) Past Surgical History: Social history: no significant social history Family history: no significant family history Medications and Allergies Allergies Allergy/AdvReac Type Severity Reaction Status Date / Time No Known Allergies Allergy Verified 12/18/16 15:18 Home Medications Medication Instructions Recorded Confirmed Last Taken Type Insulin Glulisine [Apidra] 0 units SUB-Q ACHS 30 Days 10/04/16 12/18/16 Unknown Rx Albuterol Sulfate [Albuterol 0.63% 0.63 mg IH TID PRN #1 vial.neb 12/23/1603/10 Unknown Rx NEBS] Albuterol Sulfate [Ventolin HFA] 2 puff IH Q4H PRN #1 hfa.aer.ad 12/23/16 Unknown Rx Arformoterol Nebu [Brovana Nebu] 15 mcg IH Q12HRT #60 ml 12/23/16 03/10/17 Unknown Rx Aspirin 81 mg PO DAILY #30 tab.chew 12/23/16 03/10/17 Unknown Rx FLUoxetine [PROzac] 20 mg PO QDAY #30 capsule 12/23/16 03/10/17 Unknown Rx Ferrous Sulfate [Feosol 325 MG tab] 325 mg PO QDAY #90 tablet 12/23/16 03/10/17 Unknown Rx Furosemide [Lasix TAB] 20 mg PO QDAY #30 tablet 12/23/16 03/10/17 Unknown Rx Insulin NPH/Regular [NovoLIN 70/30] 35 unit SUB-Q BIDDIAB #1 vial 12/23/16 Unknown Rx Levothyroxine [Synthroid] 25 mcg PO QAM #30 tablet 12/23/16 Unknown Rx Tiotropium [place] [Spiriva 4 gm IH DAILY #30 mist.inhal 12/23/16 Unknown Rx Respimat] predniSONE [Deltasone] 60 mg PO QDAY #14 tablet 12/23/16 Unknown Rx Active Meds: Active Medications Acetaminophen (Tylenol) 650 mg PO Q4H PRN PRN Reason: Pain MILD(1-3)/Fever >100.5/DE Bisacodyl (Dulcolax) 10 mg [place] QDAY PRN PRN Reason: Constipation unrelieved by MOM Dextrose (D50w (25gm)) 50 ml IV PRN PRN PRN Reason: Hypoglycemia Docusate Sodium (Colace) 100 mg PO BID LUCIANA Famotidine (Pepcid) 20 mg PO BID LUCIANA Heparin Sodium (Porcine) (Heparin) 5,000 unit SUB-Q Q8HR [facility] Last Admin: 03/10/17 17:16 Dose: 5,000 unit Insulin Human Regular (Novolin R) 0 units SUB-Q ACHS [facility] PRN Reason: Protocol Last Admin: 03/10/17 17:17 Dose: 6 units Magnesium Hydroxide (Milk Of Magnesia) 30 ml PO Q4H PRN PRN Reason: Constipation Methylprednisolone Sodium Succinate (Solu-Medrol) 60 mg IV Q8HR [facility] Last Admin: 03/10/17 17:16 Dose: 60 mg Ondansetron HCl (Zofran) 4 mg IV Q8H PRN PRN Reason: N/V unrelieved by Reglan Review of Systems All systems: negative Physical Examination Vital signs: Vital Signs Temp Pulse BP Pulse Ox 98.2 F 77 199/110 90 03/10/17 06:42 03/10/17 06:42 03/10/17 06:42 03/10/17 06:42 General appearance: no acute distress, alert Eyes: non-icteric ENT: oropharynx moist Neck: supple, no JVD, other (Short and supple.) Effort: mildly labored Ascultation: Bilateral: diminished breath sounds Cardiovascular: regular rate and rhythm Gastrointestinal: normoactive bowel sounds, soft, non-tender Integumentary: normal Extremities: no cyanosis, no edema Musculoskeletal: joint inflammation Gait: poor gait normal mental status, non-focal exam, pupils equal and round depressed Results - Laboratory Findings CBC and BMP: 03/10/17 07:08 03/10/17 07:08 ABG POC ABG pH 7.406 (7.35-7.45) 03/10/17 09:28 POC ABG pCO2 57.2 (35-45) H 03/10/17 09:28 POC ABG pO2 62 (80-105) L 03/10/17 09:28 POC ABG HCO3 35.9 03/10/17 09:28 POC ABG Total CO2 38 03/10/17 09:28 POC ABG O2 Sat 91 03/10/17 09:28 PT/INR, D-dimer D-Dimer 829.90 ng/mlDDU (0-234) H 03/10/17 08:11 Abnormal lab findings: Abnormal Labs 03/10/17 03/10/17 13:45 13:48 POC Glucose 363 H Troponin T 0.054 H - Diagnostic Findings Chest x-ray: report reviewed (No acute CT evidence of pulmonary emboli.), image reviewed Assessment and Plan This is 51 year old ,[place] female Morbidly Obese admitted with shortness of breath and cough with productive yellow sputum. Denies chest pain, sore throat or nasal congestion.Patient has history of CHF,Hypertension Diabetes ,Hypothyroidism,sleep apnea, anemia. Patient may have asthma. She denies smoking , alcohol or drug abuse. 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 Denies allergies to the medications.Patient says uses CPAP and O2 at home.Patient may have Obesity ,hypoventilation. - Patient Problems (1) Acute and chronic respiratory failure with hypercapnia Current Visit: No Status: Acute Plan to address problem: BIPAP 20/8, rate 20, FIO2 30%. O2 2 litres via nasal canula. Albuterol/atrovent aerosol treatments q 6 hours. Continue solumedral Continue S/C Heparin. (2) Morbid obesity with BMI of 45.0-49.9, adult Current Visit: Yes Status: Chronic Plan to address problem: Consult nutrition for weight reduction diet. (3) DINESH (obstructive sleep apnea) Current Visit: Yes Status: Chronic Plan to address problem: BIPAP 20/8, rate 20, FIO2 30%. (4) Hypothyroidism (acquired) Current Visit: Yes Status: Chronic Plan to address problem: Management as per primary care. (5) Type 2 diabetes mellitus Current Visit: No Status: Chronic Qualifiers: Diabetes mellitus complication status: with hyperglycemia Diabetes mellitus complication detail: D Diabetic retinopathy severity: D Proliferative retinopathy type: P Diabetes mellitus macular edema: D Diabetes mellitus residential insulin use: with residential use Laterality: L Chronic kidney disease stage: C Qualified Code(s): E11.65 - Type 2 diabetes mellitus with hyperglycemia; Z79.4 - exterminator termite (current) use of insulin (6) Asthma Current Visit: Yes Status: Acute Qualifiers: Asthma severity: A Asthma complication type: A Qualified Code(s): J45.31 - Mild persistent asthma with (acute) exacerbation Plan to address problem: Patient has no history of smoking or occupational exposure. Likely asthma. Continue I/V solumedral and aerosolized bronchodilators. (7) Obesity hypoventilation syndrome Current Visit: Yes Status: Acute Plan to address problem: BIPAP 20/8, rate 20, FIO2 30%. (8) Acute bronchitis Current Visit: Yes Status: Acute Qualifiers: Bronchitis organism: B Plan to address problem: Sputum for gram stain and C&S Levaquin 750 mg po qd.
[2017-03-10] MEDS: COLACE PO SCH (21:33)
[2017-03-10] MEDS: AUGMENTIN 875 MG PO SCH (21:33)
[2017-03-10] MEDS: PEPCID PO SCH (21:34)
[2017-03-11] MEDS: HEPARIN SUB-Q SCH ×3 (05:35→22:29)
[2017-03-11 08:02] LABS: Basophils % (Auto) 0.2 % (0.0-1.8); Hematocrit 34.8 % (30.3-42.9); Hemoglobin 11.5 gm/dl (10.1-14.3); Mean Corpuscular HGB Conc 33 % (30-34); Mean Corpuscular Hemoglobin 31 pg (28-32); Mean Corpuscular Volume 95 fl (79-97); Platelet Count 271 K/mm3 (140-440); Red Blood Count 3.68 M/mm3 (3.65-5.03); Red Cell Distribution Width 13.6 % (13.2-15.2)
[2017-03-11 08:13] LABS: Anion Gap 21 mmol/L; BUN/Creatinine Ratio 16.66; Blood Urea Nitrogen 15 mg/dL (7-17); Carbon Dioxide 30 mmol/L (22-30); Chloride 88.5 mmol/L (98-107); Sodium 135 mmol/L (137-145)
[2017-03-11 08:26] LABS: Glucose 535 mg/dL (65-100)
[2017-03-11] MEDS: DUONEB 0.5 MG-3 MG/3 ML SOLN IH SCH ×3 (08:54→19:45)
[2017-03-11] MEDS ORDERED: PERCOCET 5/325 PO PRN (10:18)
--- NOTE | 2017-03-11 10:18 | Progress Note ---
Assessment and Plan Assessment and plan: 1. Acute on chronic respiratory failure Etiology is secondary to a COPD exacerbation combined with DINESH/OHS due to her morbid obesity 2. COPD exacerbation. The patient will be placed on the COPD pathway. Continue IV antibiotics, corticosteroids, inhaled bronchodilators, supplemental oxygen and CPAP as needed. Add Mucinex for cough. 3. Morbid obesity Patient will be counseled regarding importance of losing weight and lifestyle changes 4. DINESH/OHS On CPAP at home, but not using it (setting have not been adjusted for years) 5. DM Accu-checks and SSI 6. HTN Resume antihypertensive medications. 7. HPL Continue statins 8. Hypothyroidism Continue Levothyroxine. Check TSH levels. 9. Iron deficient anemia. Check CBC. Transfuse for hemoglobin less than 7.0. 10. Depression Continue Fluoxetine 11. DVT prophylaxis Lovenox daily. 12. Right knee osteoarthritis. Percocet when necessary. History Interval history: Patient complained of cough and right knee pain. Patient states that her right knee pain is chronic osteoarthritis. Hospitalist Physical - Constitutional Vitals: Temp Pulse Resp BP Pulse Ox 98 F 73 18 142/78 100 03/11/17 08:16 03/11/17 08:24 03/11/17 08:24 03/11/17 08:16 03/11/17 08:23 General appearance: Present: obese - EENT Eyes: Present: PERRL, EOM intact ENT: hearing intact, clear oral mucosa, dentition normal - Neck Neck: Present: supple, normal ROM - Respiratory Respiratory effort: normal Respiratory: bilateral: CTA - Cardiovascular Rhythm: regular Heart Sounds: Present: S1 & S2. Absent: gallop, rub - Extremities Extremities: no ischemia, No edema, Full ROM - Abdominal General gastrointestinal: soft, non-tender, non-distended, normal bowel sounds - Integumentary Integumentary: Present: clear, warm, dry - Neurologic Neurologic: CNII-XII intact, moves all extremities Results - Labs CBC & Chem 7: 03/11/17 06:43 03/11/17 06:43 Labs: Laboratory Last Values WBC 10.0 K/mm3 (4.5-11.0) 03/11/17 06:43 RBC 3.68 M/mm3 (3.65-5.03) 03/11/17 06:43 Hgb 11.5 gm/dl (10.1-14.3) 03/11/17 06:43 Hct 34.8 % (30.3-42.9) 03/11/17 06:43 MCV 95 fl (79-97) 03/11/17 06:43 MCH 31 pg (28-32) 03/11/17 06:43 MCHC 33 % (30-34) 03/11/17 06:43 RDW 13.6 % (13.2-15.2) 03/11/17 06:43 Plt Count 271 K/mm3 (140-440) 03/11/17 06:43 Lymph % (Auto) 13.9 % (13.4-35.0) 03/11/17 06:43 Coke % (Auto) 1.2 % (0.0-7.3) 03/11/17 06:43 Eos % (Auto) 0.0 % (0.0-4.3) 03/11/17 06:43 Baso % (Auto) 0.2 % (0.0-1.8) 03/11/17 06:43 Lymph # 1.4 K/mm3 (1.2-5.4) 03/11/17 06:43 Coke # 0.1 K/mm3 (0.0-0.8) 03/11/17 06:43 Eos # 0.0 K/mm3 (0.0-0.4) 03/11/17 06:43 Baso # 0.0 K/mm3 (0.0-0.1) 03/11/17 06:43 Seg Neutrophils % 84.7 % (40.0-70.0) H 03/11/17 06:43 Seg Neutrophils # 8.4 K/mm3 (1.8-7.7) H 03/11/17 06:43 D-Dimer 829.90 ng/mlDDU (0-234) H 03/10/17 08:11 POC ABG pH 7.406 (7.35-7.45) 03/10/17 09:28 POC ABG pCO2 57.2 (35-45) H 03/10/17 09:28 POC ABG pO2 62 (80-105) L 03/10/17 09:28 POC ABG HCO3 35.9 03/10/17 09:28 POC ABG Total CO2 38 03/10/17 09:28 POC ABG O2 Sat 91 03/10/17 09:28 POC ABG Base Excess 11 03/10/17 09:28 FiO2 28 % 03/10/17 09:28 Sodium 135 mmol/L (137-145) L 03/11/17 06:43 Potassium 4.0 mmol/L (3.6-5.0) 03/11/17 06:43 Chloride 88.5 mmol/L (98-107) L 03/11/17 06:43 Carbon Dioxide 30 mmol/L (22-30) 03/11/17 06:43 Anion Gap 21 mmol/L 03/11/17 06:43 BUN 15 mg/dL (7-17) 03/11/17 06:43 Creatinine 0.9 mg/dL (0.7-1.2) 03/11/17 06:43 Estimated GFR > 60 ml/min 03/11/17 06:43 BUN/Creatinine Ratio 16.66 % 03/11/17 06:43 Glucose 535 mg/dL (65-100) H* 03/11/17 06:43 POC Glucose 422 (70-105) H 03/11/17 06:22 Calcium 10.0 mg/dL (8.4-10.2) 03/11/17 06:43 Troponin T 0.054 ng/mL (0.00-0.029) H 03/10/17 13:45 NT-Pro-B Natriuret Pep 152.9 pg/mL (0-900) 03/10/17 07:08 Triglycerides 243 mg/dL (2-149) H 03/10/17 07:08 Cholesterol 199 mg/dL (50-199) 03/10/17 07:08 LDL Cholesterol Direct 67 mg/dL (50-130) 03/10/17 07:08 HDL Cholesterol 84 mg/dL (40-59) H 03/10/17 07:08 Cholesterol/HDL Ratio 2.36 % 03/10/17 07:08 TSH 16.320 mlU/mL (0.270-4.200) H 03/10/17 08:11
[2017-03-11] MEDS: AUGMENTIN 875 MG PO SCH ×2 (10:23→22:28)
[2017-03-11] MEDS: PEPCID PO SCH ×2 (10:23→22:28)
[2017-03-11] MEDS: COLACE PO SCH ×2 (10:23→22:28)
--- NOTE | 2017-03-11 10:57 | Admit Criteria Form ---
Admission Criteria Documentation: COPD Clinical Indications for Admission to Inpatient Care (Place 'X' for any and all applicable criteria): Admission is indicated for ANY ONE of the following (1)(2)(3): [X ]I. Acute exacerbation by high-risk comorbidity (e.g., pneumonia, dysrhythmia, heart failure, pleural effusion, pneumothorax) or severe underlying COPD (e.g., steroid dependent) [ ]II. Inpatient admission required rather than observation care (see Chronic Obstructive Pulmonary Disease: Observation Care) because of ANY ONE of the following: [ ]a) New or pre-existing signs or symptoms of COPD (eg, dyspnea or Tachypnea at rest or with minimal activity) that persist despite outpatient and observation care treatment [ ]b) New-onset hypoxemia (room air SaO2 less than 90%, PO2 less than 60 mm Hg (8.0 kPa)) that persists despite outpatient and observation care treatment [ ]c) Worsening of pre-existing hypoxemia (eg, new or increased requirement for supplemental oxygen to maintain oxygenation at baseline level) that persists despite outpatient and observation care treatment, with oxygen treatment needs performable only in acute inpatient setting [ ]d) Hypercarbia (PCO2 greater than 40 mm Hg (5.3 kPa))-induced respiratory acidosis (pH less than 7.35) that persists despite outpatient and observation care treatment [ ]e) Supplemental oxygen or respiratory treatments for over 24 hours that are performable only in acute inpatient setting [ ]f) Chest tube placement with active evacuation (e.g., suction, drainage) (5) [ ]g) Other condition, treatment or monitoring requiring inpatient admission [ ]III. Planned invasive surgical or diagnostic procedures requiring acute- care hospitalization [ ]IV. Acute respiratory failure (e.g., uncompensated hypercarbia, severe hypoxemia) [ ]V. Severe comorbid condition (e.g., severe steroid myopathy, acute vertebral fracture) that has acutely worsened pulmonary function [ ]. Confusion state, lethargy, obtundation, stupor or coma Extended stay beyond goal length of stay may be needed for (31)(32): [ ]a ) Respiratory Failure. [ ]b) Severe or persisting hypoxemia or hypercarbia [ ]c) Severe or persistent dyspnea [ ]d) Comorbidities (e.g. chronic heart failure, atrial fibrillation with rapid response, pneumonia) [ ]e) Malnutrition The original [facility] content created by [facility] has been revised. The portions of the content which have been revised are identified through the use of italic text or in bold, and [facility] has neither reviewed nor approved the modified material. All other unmodified content is copyright [facility]. Please see references footnoted in the original [facility] edition 2016 Admission Criteria Met: Yes
[2017-03-11] MEDS: MUCINEX ER PO SCH ×2 (14:49→22:28)
[2017-03-11] MEDS ORDERED: PROVENTIL IH PRN (19:51)
--- NOTE | 2017-03-11 20:24 | Progress Note ---
Assessment and Plan This is 51 year old ,[place] female Morbidly Obese admitted with shortness of breath and cough with productive yellow sputum. Denies chest pain, sore throat or nasal congestion.Patient has history of CHF,Hypertension Diabetes ,Hypothyroidism,sleep apnea, anemia. Patient may have asthma. She denies smoking , alcohol or drug abuse. 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 Denies allergies to the medications.Patient says uses CPAP and O2 at home.Patient may have Obesity ,hypoventilation. 03/11/17 Patient resting on nasal canula 2 litres O2 satuaration 96%. Patient says breathing better. - Patient Problems (1) Acute and chronic respiratory failure with hypercapnia Current Visit: No Status: Acute Plan to address problem: BIPAP 20/8, rate 20, FIO2 30%. O2 2 litres via nasal canula. Albuterol/atrovent aerosol treatments q 6 hours. Decrease solumedral 20 mq q 12 hours, since blood sugur going up.Patient breathing better. Continue S/C Heparin. (2) Morbid obesity with BMI of 45.0-49.9, adult Current Visit: Yes Status: Chronic Plan to address problem: Consult nutrition for weight reduction diet. (3) DINESH (obstructive sleep apnea) Current Visit: Yes Status: Chronic Plan to address problem: BIPAP 20/8, rate 20, FIO2 30%. (4) Hypothyroidism (acquired) Current Visit: Yes Status: Chronic Plan to address problem: Management as per primary care. (5) Type 2 diabetes mellitus Current Visit: No Status: Chronic Qualifiers: Diabetes mellitus complication status: with hyperglycemia Diabetes mellitus complication detail: D Diabetic retinopathy severity: D Proliferative retinopathy type: P Diabetes mellitus macular edema: D Diabetes mellitus alf insulin use: with watermaster use Laterality: L Chronic kidney disease stage: C Qualified Code(s): E11.65 - Type 2 diabetes mellitus with hyperglycemia; Z79.4 - jail (current) use of insulin (6) Asthma Current Visit: Yes Status: Acute Qualifiers: Asthma severity: A Asthma complication type: A Qualified Code(s): J45.31 - Mild persistent asthma with (acute) exacerbation Plan to address problem: Patient has no history of smoking or occupational exposure. Likely asthma. Continue I/V solumedral and aerosolized bronchodilators. (7) Obesity hypoventilation syndrome Current Visit: Yes Status: Acute Plan to address problem: BIPAP 20/8, rate 20, FIO2 30%. (8) Acute bronchitis Current Visit: Yes Status: Acute Qualifiers: Bronchitis organism: B Plan to address problem: Sputum for gram stain and C&S Levaquin 750 mg po qd. Subjective Date of service: 03/11/17 Interval history: Patient resting on nasal canula 2 litres O2 satuaration 96%. Patient says breathing better. Objective Vital Signs - 12hr 03/11/17 03/11/17 03/11/17 08:23 08:24 13:40 Temperature Pulse Rate [ 73 73 Anterior Bilateral Throughout] Pulse Rate [ Left From Monitor] Respiratory Rate Respiratory 18 20 Rate [Anterior Bilateral Throughout] Blood Pressure [Right Arm] O2 Sat by Pulse 100 Oximetry 03/11/17 03/11/17 03/11/17 13:59 16:00 19:45 Temperature 98.3 F Pulse Rate [ 74 82 Anterior Bilateral Throughout] Pulse Rate [ 86 Left From Monitor] Respiratory 22 Rate Respiratory 18 19 Rate [Anterior Bilateral Throughout] Blood Pressure 150/92 [Right Arm] O2 Sat by Pulse Oximetry 03/11/17 03/11/17 03/11/17 19:47 19:48 19:54 Temperature Pulse Rate [ 80 Anterior Bilateral Throughout] Pulse Rate [ Left From Monitor] Respiratory Rate Respiratory 19 Rate [Anterior Bilateral Throughout] Blood Pressure [Right Arm] O2 Sat by Pulse 96 96 Oximetry Constitutional: no acute distress, alert Eyes: non-icteric ENT: oropharynx moist Neck: supple, no JVD, other (Short and supple.) Effort: mildly labored Ascultation: Bilateral: diminished breath sounds Cardiovascular: regular rate and rhythm Gastrointestinal: normoactive bowel sounds, soft, non-tender Integumentary: normal Extremities: no cyanosis, no edema Neurologic: normal mental status, non-focal exam, pupils equal and round Psychiatric: depressed CBC and BMP: 03/11/17 06:43 03/11/17 16:50 ABG, PT/INR, D-dimer: ABG POC ABG pH 7.406 (7.35-7.45) 03/10/17 09:28 POC ABG pCO2 57.2 (35-45) H 03/10/17 09:28 POC ABG pO2 62 (80-105) L 03/10/17 09:28 POC ABG HCO3 35.9 03/10/17 09:28 POC ABG Total CO2 38 03/10/17 09:28 POC ABG O2 Sat 91 03/10/17 09:28 PT/INR, D-dimer D-Dimer 829.90 ng/mlDDU (0-234) H 03/10/17 08:11 Abnormal lab findings: Abnormal Labs 03/10/17 03/10/17 03/10/17 13:45 13:48 21:28 Seg Neutrophils % Seg Neutrophils # Sodium Chloride Glucose POC Glucose 363 H 457 H Troponin T 0.054 H 03/11/17 03/11/17 03/11/17 06:22 06:43 06:43 Seg Neutrophils % 84.7 H Seg Neutrophils # 8.4 H Sodium 135 L Chloride 88.5 L Glucose 535 H* POC Glucose 422 H Troponin T 03/11/17 03/11/17 03/11/17 11:48 12:11 16:15 Seg Neutrophils % Seg Neutrophils # Sodium Chloride Glucose POC Glucose > 500 H 472 H > 500 H Troponin T 03/11/17 16:50 Seg Neutrophils % Seg Neutrophils # Sodium Chloride Glucose 568 H* POC Glucose Troponin T
[2017-03-12] MEDS: DUONEB 0.5 MG-3 MG/3 ML SOLN IH SCH ×4 (01:49→20:43)
[2017-03-12] MEDS: HEPARIN SUB-Q SCH ×2 (05:25→14:19)
[2017-03-12] MEDS: MUCINEX ER PO SCH (09:55)
[2017-03-12] MEDS: PEPCID PO SCH (09:55)
[2017-03-12] MEDS: COLACE PO SCH (09:55)
[2017-03-12] MEDS: AUGMENTIN 875 MG PO SCH (09:55)
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
[2017-03-12 11:27] VITALS: BP 136/73
--- NOTE | 2017-03-12 15:42 | Event Note ---
Date: 03/12/17 Spoke with nurse regarding consult for Medina Kumar Nurse not aware of GI consultation. She reports the patient has no dysphagia or difficulty swallowing. Patient is currently discharged and leaving hospital. PATO PerezP-BC
== END 2017-03-12 20:22 | disposition home or self-care (01) | DRG 189 ==
LOC: ED 06:14 → 3A 11:24
PROVIDERS: ADMIT Hospitalist; ATTEND Hospitalist
PROC: 4A033R1 Measurement of Arterial Saturation, Peripheral, Percutaneous Approach (ICD-10-PCS; principal; 2017-03-10)
PROC: 5A09357 Assistance with Respiratory Ventilation, Less than 24 Consecutive Hours, Continuous Positive Airway Pressure (ICD-10-PCS; 2017-03-11)
DX: J96.22 Acute and chronic respiratory failure with hypercapnia (principal); J44.1 Chronic obstructive pulmonary disease with (acute) exacerbation; E66.2 Morbid (severe) obesity with alveolar hypoventilation; Z68.42 Body mass index [BMI] 45.0-49.9, adult; J44.0 Chronic obstructive pulmonary disease with (acute) lower respiratory infection; J96.21 Acute and chronic respiratory failure with hypoxia; J20.9 Acute bronchitis, unspecified; I50.9 Heart failure, unspecified; I11.0 Hypertensive heart disease with heart failure; E03.9 Hypothyroidism, unspecified; F32.9 Major depressive disorder, single episode, unspecified; E78.5 Hyperlipidemia, unspecified; D50.9 Iron deficiency anemia, unspecified; M17.11 Unilateral primary osteoarthritis, right knee; R73.9 Hyperglycemia, unspecified; Z79.4 Long term (current) use of insulin; Z91.19 Patient's noncompliance with other medical treatment and regimen
CPT/HCPCS: 36415; 71010; 71275; 80048; 80061; 82803; 82947; 82962; 83880; 84443; 84484; 85025; 85379; 87205; 93005; 93010; 94640; 94660; 94760; 96374; J1644; J1815; J2920; Q9967

== ENCOUNTER 2017-06-02 01:37 | Inpatient (IN) | payer MEDICAID ==
[2017-06-02] MEDS ORDERED: DUONEB *Not for PRN Use IH ONE (02:59)
--- NOTE | 2017-06-02 03:04 | Emergency Department Report ---
ED Shortness of Breath HPI - General Chief Complaint: Dyspnea/Respdistress Stated Complaint: ERIN Time Seen by Provider: 06/02/17 02:53 Source: EMS Mode of arrival: Stretcher Limitations: No Limitations - History of Present Illness Initial Comments: 51-year-old female with past medical history of COPD, morbid obesity, sleep apnea, depression, CHF, hypertension, anemia, and hypothyroidism presents to the hospital complaining of shortness of breath after running out of her oxygen. Patient's oxygen dependent and uses 4 L all the time and ran out approximately a p.m. last night. She states she tried to tough it out but that her breath became increasingly short. Patient complains of left upper chest soreness when trying to catch her breath. Pain is mild. Patient complains of a dry cough without documented fever. - Related Data Previous Rx's Medication Instructions Recorded Last Taken Type Insulin Glulisine [Apidra] 0 units SUB-Q ACHS 30 Days 10/04/16 Unknown Rx Albuterol Sulfate [Albuterol 0.63% 0.63 mg IH TID PRN #1 vial.neb 03/12/17 Unknown Rx NEBS] Albuterol Sulfate [Ventolin HFA] 2 puff IH Q4H PRN #1 hfa.aer.ad 03/12/17 Unknown Rx Arformoterol Nebu [Brovana Nebu] 15 mcg IH Q12HRT #60 ml 03/12/17 Unknown Rx Aspirin 81 mg PO DAILY #30 tab.chew 03/12/17 Unknown Rx FLUoxetine [PROzac] 20 mg PO QDAY #30 capsule 03/12/17 Unknown Rx Ferrous Sulfate [Feosol 325 MG tab] 325 mg PO QDAY #90 tablet 03/12/17 Unknown Rx Ipratropium/Albuterol Sulfate 1 ampul IH Q6HRT #30 ampul.neb 03/12/17 Unknown Rx [DUONEB *Not for PRN Use*] Levothyroxine [Synthroid] 25 mcg PO QAM #30 tablet 03/12/17 Unknown Rx Tiotropium [place] [Spiriva 4 gm IH DAILY #30 mist.inhal 03/12/17 Unknown Rx Respimat] guaiFENesin ER [Mucinex ER] 600 mg PO BID #30 tablet 03/12/17 Unknown Rx oxyCODONE /ACETAMINOPHEN [Percocet 1 tab PO Q6H PRN #12 tablet 03/12/17 Unknown Rx 5/325 mg] Ciprofloxacin HCl [Ciprofloxacin 500 mg PO BID #6 tablet 04/28/17 Unknown Rx TAB] Furosemide [Lasix TAB] 20 mg PO QDAY #30 tablet 04/28/17 Unknown Rx Insulin NPH/Regular [NovoLIN 70/30] 45 unit SUB-Q BIDDIAB #1 vial 04/28/17 Unknown Rx Prednisone [predniSONE 5 mg (6-Day 5 mg PO .TAPER #1 tab.ds.pk 04/28/17 Unknown Rx Pack, 21 Tabs)] amLODIPine [Norvasc] 5 mg PO QDAY #30 tablet 04/28/17 Unknown Rx Allergies Allergy/AdvReac Type Severity Reaction Status Date / Time No Known Allergies Allergy Verified 12/18/16 15:18 ED Review of Systems ROS: Stated complaint: ERIN Other details as noted in HPI Comment: All other systems reviewed and negative Other: Constitutional: No fevers Eyes: No eye pain visual changes ENT: No ear pain or throat pain Neck: Denies pain Respiratory: As per HPI Cardiovascular: Denies palpitations, syncope GI: Denies abdominal pain, nausea, vomiting, diarrhea : Denies dysuria Musculoskeletal: Denies back pain Skin: Denies rash, lesions, erythema Neurologic: Denies headache, numbness, weakness Psychiatric: Denies suicidal ideation, hallucinations ED Past Medical Hx - Past Medical History Previous Medical History?: Yes Hx Hypertension: Yes Hx Heart Attack/AMI: No Hx Congestive Heart Failure: Yes Hx Diabetes: Yes Hx Deep Vein Thrombosis: No Hx Liver Disease: No Hx Renal Disease: No Hx Sickle Cell Disease: No Hx Arthritis: No Hx Seizures: Yes (In past) Hx Psychiatric Treatment: Yes (depression) Hx Asthma: No Hx COPD: Yes Hx Tuberculosis: No Hx Dementia: No Hx HIV: No Additional medical history: anemia, hypothyroidism, sleep apnea, CPAP machine at home - Surgical History Past Surgical History?: No Hx Coronary Stent: No Hx Pacemaker: No Hx Internal Defibrillator: No Additional Surgical History: x 1 - Social History Smoking Status: Never Smoker - Medications Home Medications: Home Medications Medication Instructions Recorded Confirmed Last Taken Type Insulin Glulisine [Apidra] 0 units SUB-Q ACHS 30 Days 10/04/16 06/02/17 Unknown Rx Albuterol Sulfate [Albuterol 0.63% 0.63 mg IH TID PRN #1 vial.neb 03/12/1706/02 Unknown Rx NEBS] Albuterol Sulfate [Ventolin HFA] 2 puff IH Q4H PRN #1 hfa.aer.ad 03/12/17 Unknown Rx Arformoterol Nebu [Brovana Nebu] 15 mcg IH Q12HRT #60 ml 03/12/17 06/02/17 Unknown Rx Aspirin 81 mg PO DAILY #30 tab.chew 03/12/17 06/02/17 Unknown Rx FLUoxetine [PROzac] 20 mg PO QDAY #30 capsule 03/12/17 06/02/17 Unknown Rx Ferrous Sulfate [Feosol 325 MG tab] 325 mg PO QDAY #90 tablet 03/12/17 06/02/17 Unknown Rx Ipratropium/Albuterol Sulfate 1 ampul IH Q6HRT #30 ampul.neb 03/12/17 06/02/17 Unknown Rx [DUONEB *Not for PRN Use*] Levothyroxine [Synthroid] 25 mcg PO QAM #30 tablet 03/12/17 06/02/17 Unknown Rx Tiotropium [place] [Spiriva 4 gm IH DAILY #30 mist.inhal 03/12/17 06/02/17 Unknown Rx Respimat] guaiFENesin ER [Mucinex ER] 600 mg PO BID #30 tablet 03/12/17 06/02/17 Unknown Rx oxyCODONE /ACETAMINOPHEN [Percocet 1 tab PO Q6H PRN #12 tablet 03/12/17 Unknown Rx 5/325 mg] Ciprofloxacin HCl [Ciprofloxacin 500 mg PO BID #6 tablet 04/28/17 06/02/17 Unknown Rx TAB] Furosemide [Lasix TAB] 20 mg PO QDAY #30 tablet 04/28/17 06/02/17 Unknown Rx Insulin NPH/Regular [NovoLIN 70/30] 45 unit SUB-Q BIDDIAB #1 vial 04/28/1706/02 Unknown Rx Prednisone [predniSONE 5 mg (6-Day 5 mg PO .TAPER #1 tab.ds.pk 04/28/17 Unknown Rx Pack, 21 Tabs)] amLODIPine [Norvasc] 5 mg PO QDAY #30 tablet 04/28/17 06/02/17 Unknown Rx ED Physical Exam - General Limitations: No Limitations - Other Other exam information: General: No limitations, patient is alert in no acute distress Head exam: Atraumatic, normocephalic Eyes exam: Normal appearance, pupils equal reactive to light, extraocular movements intact ENT: Moist mucous membrane, normal oropharynx Neck exam: Normal inspection, full range of motion, no meningismus nontender Respiratory exam: Clear to auscultation bilateral, no wheezes, rales, crackles Cardiovascular: Normal rate and rhythm, normal heart sounds, chest wall nontender Abdomen: Soft, nondistended, and nontender, with normal bowel sounds, no rebound, or guarding Extremity: Full range of motion normal inspection no deformity, no calf tenderness or edema Back: Normal Inspection, full range of motion, no tenderness Neurologic: Alert, oriented x3, cranial nerves intact, no motor or sensory deficit Psychiatric: normal affect, normal mood Skin: Warm, dry, intactm ED Course Vital Signs 06/02/17 06/02/17 06/02/17 01:42 01:50 02:01 Temperature 98.9 F Pulse Rate 83 Respiratory 30 H Rate Blood Pressure 125/61 125/61 O2 Sat by Pulse 94 Oximetry 06/02/17 02:43 Temperature Pulse Rate Respiratory 22 Rate Blood Pressure O2 Sat by Pulse 96 Oximetry - Reevaluation(s) Reevaluation #1: 06/02/17 04:39 Patient received a DuoNeb in the ED. Aspirin ordered for elevated troponin and insulin ordered for elevated glucose ED Medical Decision Making - Lab Data Result diagrams: 06/02/17 02:40 06/02/17 02:40 Lab Results 06/02/17 06/02/17 Range/Units 02:40 02:40 WBC 5.6 (4.5-11.0) K/mm3 RBC 3.58 L (3.65-5.03) M/mm3 Hgb 11.3 (10.1-14.3) gm/dl Hct 33.2 (30.3-42.9) % MCV 93 (79-97) fl MCH 32 (28-32) pg MCHC 34 (30-34) % RDW 13.1 L (13.2-15.2) % Plt Count 246 (140-440) K/mm3 Lymph % (Auto) 21.8 (13.4-35.0) % Payne % (Auto) 5.3 (0.0-7.3) % Eos % (Auto) 0.3 (0.0-4.3) % Baso % (Auto) 0.4 (0.0-1.8) % Lymph # 1.2 (1.2-5.4) K/mm3 Payne # 0.3 (0.0-0.8) K/mm3 Eos # 0.0 (0.0-0.4) K/mm3 Baso # 0.0 (0.0-0.1) K/mm3 Seg Neutrophils % 72.2 H (40.0-70.0) % Seg Neutrophils # 4.0 (1.8-7.7) K/mm3 Sodium 135 L (137-145) mmol/L Potassium 3.7 (3.6-5.0) mmol/L Chloride 92.3 L (98-107) mmol/L Carbon Dioxide 34 H (22-30) mmol/L Anion Gap 12 mmol/L BUN 14 (7-17) mg/dL Creatinine 1.1 (0.7-1.2) mg/dL Estimated GFR > 60 ml/min BUN/Creatinine Ratio 12.72 % Glucose 340 H (65-100) mg/dL Calcium 8.9 (8.4-10.2) mg/dL Troponin T 0.074 H (0.00-0.029) ng/mL Triglycerides 126 (2-149) mg/dL Cholesterol 174 (50-199) mg/dL LDL Cholesterol Direct 53 (50-130) mg/dL HDL Cholesterol 96 H (40-59) mg/dL Cholesterol/HDL Ratio 1.81 % - EKG Data -: EKG Interpreted by Me (nsr rate 77, no stemi) - Radiology Data Radiology results: image reviewed (chest x-ray: No acute findings) - Medical Decision Making Plans admit patient to the hospital further treatment. Troponin is mildly elevated. Patient would need arrangements for home oxygen - Differential Diagnosis COPD, hypoxemia, pneumonia, bronchitis, AK Critical Care Time: No Critical care attestation.: If time is entered above; I have spent that time in minutes in the direct care of this critically ill patient, excluding procedure time. ED Disposition Clinical Impression: COPD exacerbation, Oxygen dependent, Uncontrolled diabetes mellitus type 2 without complications, DINESH (obstructive sleep apnea), Elevated troponin, Requires oxygen therapy, HTN (hypertension), Chest pain, Obesities, morbid Disposition: -09 OP ADMIT IP TO THIS HOSP Is pt being admited?: Yes Does the pt Need Aspirin: Yes Condition: Stable Time of Disposition: 04:24 (Dr Flores/hosp)
[2017-06-02 03:19] LABS: Anion Gap 12 mmol/L; BUN/Creatinine Ratio 12.72; Blood Urea Nitrogen 14 mg/dL (7-17); Calcium 8.9 mg/dL (8.4-10.2); Carbon Dioxide 34 mmol/L (22-30); Chloride 92.3 mmol/L (98-107); Glucose 340 mg/dL (65-100); Potassium 3.7 mmol/L (3.6-5.0); Sodium 135 mmol/L (137-145)
[2017-06-02 03:20] LABS: Basophils % (Auto) 0.4 % (0.0-1.8); Eosinophils % (Auto) 0.3 % (0.0-4.3); Hematocrit 33.2 % (30.3-42.9); Hemoglobin 11.3 gm/dl (10.1-14.3); Mean Corpuscular HGB Conc 34 % (30-34); Mean Corpuscular Hemoglobin 32 pg (28-32); Mean Corpuscular Volume 93 fl (79-97); Platelet Count 246 K/mm3 (140-440); Red Blood Count 3.58 M/mm3 (3.65-5.03); Red Cell Distribution Width 13.1 % (13.2-15.2); White Blood Count 5.6 K/mm3 (4.5-11.0)
[2017-06-02 04:02] LABS: Cholesterol 174 mg/dL (50-199); HDL Cholesterol 96 mg/dL (40-59); LDL Cholesterol,Direct 53 mg/dL (50-130); Triglycerides 126 mg/dL (2-149)
[2017-06-02] MEDS ORDERED: ASPIRIN PO ONE (04:22)
[2017-06-02] MEDS ORDERED: ZOFRAN IV PRN (04:50)
[2017-06-02] MEDS ORDERED: DULCOLAX PR PRN (04:50)
[2017-06-02] MEDS ORDERED: TYLENOL PO PRN (04:50)
[2017-06-02] MEDS ORDERED: MILK OF MAGNESIA PO PRN (04:50)
--- NOTE | 2017-06-02 04:50 | History and Physical Report ---
History of Present Illness Date of examination: 06/02/17 History of present illness: 50-year-old woman history of hypertension, diabetes, COPD, CHF, hypothyroidism, obstructive sleep apnea, morbid obesity comes emergency room because she acute shortness of breath. Patient states she was wheezing very loudly, not relieved with nebulizer treatment, she ran out of her oxygen and home. Also complaining of chest pain in the right chest which she describes as an achy sensation, intermittent in nature, lasting for 2 seconds, intensity 2/10, no radiation and she cannot identify exacerbating or relieving factors Patient denies palpitation, abdominal pain, hematochezia, dysuria, frequency, focal weakness, dysarthria, fever chills, polydipsia polyuria, hot or cold intolerance, easy bruisability, or rash or bleeding from mucosal membrane, rhinorrhea, epistaxis, earache, tinnitus, blurry vision, eye discharge, anxiety , depression. Other review of systems negative PAST SURGICAL HISTORY: 2 SOCIAL HISTORY: Denies alcohol, tobacco, drugs FAMILY HISTORY: Diabetes Medications and Allergies Allergies Allergy/AdvReac Type Severity Reaction Status Date / Time No Known Allergies Allergy Verified 12/18/16 15:18 Home Medications Medication Instructions Recorded Confirmed Last Taken Type Insulin Glulisine [Apidra] 0 units SUB-Q ACHS 30 Days 10/04/16 06/02/17 Unknown Rx Albuterol Sulfate [Albuterol 0.63% 0.63 mg IH TID PRN #1 vial.neb 03/12/1706/02 Unknown Rx NEBS] Albuterol Sulfate [Ventolin HFA] 2 puff IH Q4H PRN #1 hfa.aer.ad 03/12/17 Unknown Rx Arformoterol Nebu [Brovana Nebu] 15 mcg IH Q12HRT #60 ml 03/12/17 06/02/17 Unknown Rx Aspirin 81 mg PO DAILY #30 tab.chew 03/12/17 06/02/17 Unknown Rx FLUoxetine [PROzac] 20 mg PO QDAY #30 capsule 03/12/17 06/02/17 Unknown Rx Ferrous Sulfate [Feosol 325 MG tab] 325 mg PO QDAY #90 tablet 03/12/17 06/02/17 Unknown Rx Ipratropium/Albuterol Sulfate 1 ampul IH Q6HRT #30 ampul.neb 03/12/17 06/02/17 Unknown Rx [DUONEB *Not for PRN Use*] Levothyroxine [Synthroid] 25 mcg PO QAM #30 tablet 03/12/17 06/02/17 Unknown Rx Tiotropium [place] [Spiriva 4 gm IH DAILY #30 mist.inhal 03/12/17 06/02/17 Unknown Rx Respimat] guaiFENesin ER [Mucinex ER] 600 mg PO BID #30 tablet 03/12/17 06/02/17 Unknown Rx oxyCODONE /ACETAMINOPHEN [Percocet 1 tab PO Q6H PRN #12 tablet 03/12/17 Unknown Rx 5/325 mg] Ciprofloxacin HCl [Ciprofloxacin 500 mg PO BID #6 tablet 04/28/17 06/02/17 Unknown Rx TAB] Furosemide [Lasix TAB] 20 mg PO QDAY #30 tablet 04/28/17 06/02/17 Unknown Rx Insulin NPH/Regular [NovoLIN 70/30] 45 unit SUB-Q BIDDIAB #1 vial 04/28/1706/02 Unknown Rx Prednisone [predniSONE 5 mg (6-Day 5 mg PO .TAPER #1 tab.ds.pk 04/28/17 Unknown Rx Pack, 21 Tabs)] amLODIPine [Norvasc] 5 mg PO QDAY #30 tablet 04/28/17 06/02/17 Unknown Rx Exam - Physical Exam Narrative exam: Gen. appearance: Patient lying in bed, no apparent distress HEENT: Normocephalic, atraumatic, pupils equally round and reactive to light, extraocular movement intact, and no sclericterus,. No JVD or thyromegaly or nodule,neck supple, no carotid bruit ,mucous membranes moist, no exudate or erythema Heart: S1, S2, regular rate and rhythm Lungs: Wheezing bilaterally, breathing comfortable Abdomen: Positive bowel sounds, nontender, nondistended, no organomegaly Extremity: No edema, cyanosis, clubbing Skin: No rash, nodules, warm, dry Neuro: Oriented 3, cranial nerves II-12 intact, speech is fluent, motor and sensory intact - Constitutional Vitals: Temp Pulse Resp BP Pulse Ox 98.9 F 83 22 125/61 96 06/02/17 02:01 06/02/17 01:50 06/02/17 02:43 06/02/17 01:50 06/02/17 02:43 Results - Labs CBC & Chem 7: 06/03/17 05:35 06/03/17 05:35 Labs: Abnormal lab results 06/02/17 06/02/17 Range/Units 02:40 02:40 RBC 3.58 L (3.65-5.03) M/mm3 RDW 13.1 L (13.2-15.2) % Seg Neutrophils % 72.2 H (40.0-70.0) % Sodium 135 L (137-145) mmol/L Chloride 92.3 L (98-107) mmol/L Carbon Dioxide 34 H (22-30) mmol/L Glucose 340 H (65-100) mg/dL Troponin T 0.074 H (0.00-0.029) ng/mL HDL Cholesterol 96 H (40-59) mg/dL - Imaging and Cardiology EKG: image reviewed Chest x-ray: pending Assessment and Plan Acute COPD exacerbation Atypical chest pain Hypertension Diabetes type 2 Hypothyroidism Obstructive sleep apnea Morbid obesity Admits medicine Start high-dose IV steroids, nebulizer treatments Check fingersticks initiate insulin sliding scale, cardiac enzymes Start DVT prophylaxis, obtain stress test when breathing is improved Continue appropriate outpatient medications
[2017-06-02 05:42] LABS: Creatine Kinase MB 6.2 ng/mL (0.0-4.0)
[2017-06-02] MEDS: DUONEB *Not for PRN Use IH SCH ×3 (07:15→20:55)
--- NOTE | 2017-06-02 07:31 | XRay Report ---
AP CHEST: HISTORY: Shortness of breath Mild cardiomegaly, mild pulmonary venous congestion and small left pleural effusion are suspected. No evidence for pneumonia or pneumothorax. The bony structures are intact. IMPRESSION: Correlate for mild CHF.
--- NOTE | 2017-06-02 09:14 | Admit Criteria Form ---
Admission Criteria Documentation: COPD Clinical Indications for Admission to Inpatient Care (Place 'X' for any and all applicable criteria): Admission is indicated for ANY ONE of the following (1)(2)(3): [ ]I. Acute exacerbation by high-risk comorbidity (e.g., pneumonia, dysrhythmia, heart failure, pleural effusion, pneumothorax) or severe underlying COPD (e.g., steroid dependent) [X]II. Inpatient admission required rather than observation care (see Chronic Obstructive Pulmonary Disease: Observation Care) because of ANY ONE of the following: [X]a) New or pre-existing signs or symptoms of COPD (eg, dyspnea or Tachypnea at rest or with minimal activity) that persist despite outpatient and observation care treatment [ ]b) New-onset hypoxemia (room air SaO2 less than 90%, PO2 less than 60 mm Hg (8.0 kPa)) that persists despite outpatient and observation care treatment [ ]c) Worsening of pre-existing hypoxemia (eg, new or increased requirement for supplemental oxygen to maintain oxygenation at baseline level) that persists despite outpatient and observation care treatment, with oxygen treatment needs performable only in acute inpatient setting [ ]d) Hypercarbia (PCO2 greater than 40 mm Hg (5.3 kPa))-induced respiratory acidosis (pH less than 7.35) that persists despite outpatient and observation care treatment [X]e) Supplemental oxygen or respiratory treatments for over 24 hours that are performable only in acute inpatient setting [ ]f) Chest tube placement with active evacuation (e.g., suction, drainage) (5) [X]g) Other condition, treatment or monitoring requiring inpatient admission [ ]III. Planned invasive surgical or diagnostic procedures requiring acute- care hospitalization [ ]IV. Acute respiratory failure (e.g., uncompensated hypercarbia, severe hypoxemia) [ ]V. Severe comorbid condition (e.g., severe steroid myopathy, acute vertebral fracture) that has acutely worsened pulmonary function [ ]. Confusion state, lethargy, obtundation, stupor or coma Extended stay beyond goal length of stay may be needed for (31)(32): [ ]a ) Respiratory Failure. [ ]b) Severe or persisting hypoxemia or hypercarbia [ ]c) Severe or persistent dyspnea [ ]d) Comorbidities (e.g. chronic heart failure, atrial fibrillation with rapid response, pneumonia) [ ]e) Malnutrition The original [facility] content created by [facility] has been revised. The portions of the content which have been revised are identified through the use of italic text or in bold, and [facility] has neither reviewed nor approved the modified material. All other unmodified content is copyright [facility]. Please see references footnoted in the original [facility] edition 2016 Admission Criteria Met: Yes
[2017-06-02] MEDS: LOVENOX SUB-Q SCH (11:03)
[2017-06-02 12:46] LABS: Creatine Kinase MB 7.3 ng/mL (0.0-4.0)
[2017-06-02] MEDS ORDERED: PROVENTIL IH PRN (15:50)
[2017-06-02] MEDS ORDERED: NOVOLOG SUB-Q ONE (17:27)
[2017-06-02] MEDS: NOVOLOG SUB-Q SCH (23:54)
[2017-06-03 06:07] LABS: Basophils % (Auto) 0.3 % (0.0-1.8); Hematocrit 33.3 % (30.3-42.9); Hemoglobin 11.2 gm/dl (10.1-14.3); Mean Corpuscular HGB Conc 34 % (30-34); Mean Corpuscular Hemoglobin 32 pg (28-32); Mean Corpuscular Volume 94 fl (79-97); Platelet Count 259 K/mm3 (140-440); Red Blood Count 3.53 M/mm3 (3.65-5.03); Red Cell Distribution Width 13.7 % (13.2-15.2); White Blood Count 6.6 K/mm3 (4.5-11.0)
[2017-06-03 06:25] LABS: Anion Gap 19 mmol/L; BUN/Creatinine Ratio 17.27; Blood Urea Nitrogen 19 mg/dL (7-17); Calcium 8.4 mg/dL (8.4-10.2); Carbon Dioxide 32 mmol/L (22-30); Chloride 93.6 mmol/L (98-107); Glucose 448 mg/dL (65-100); Potassium 4.3 mmol/L (3.6-5.0); Sodium 140 mmol/L (137-145)
[2017-06-03] MEDS: DUONEB *Not for PRN Use IH SCH ×3 (07:18→20:21)
[2017-06-03] MEDS ORDERED: NOVOLOG SUB-Q SCH (07:30)
[2017-06-03] MEDS: NOVOLOG SUB-Q SCH ×4 (08:26→22:02)
[2017-06-03] MEDS: LOVENOX SUB-Q SCH (10:20)
[2017-06-03] MEDS ORDERED: MUCINEX ER PO PRN (14:32)
[2017-06-03] MEDS ORDERED: PERCOCET 5/325 PO PRN (14:32)
--- NOTE | 2017-06-03 14:34 | Progress Note ---
Assessment and Plan Assessment and plan: Patient is a 51-year-old woman with history of hypertension, type 2 insulin- dependent diabetes mellitus, morbid obesity BMI 55.6, CHF, obstructive sleep apnea, chronic hypoxic respiratory failure on home O2 due to COPD and hypothyroidism who presents with worsening shortness of breath and right-sided chest pain. Chest x-ray read as mild CHF. She was diagnosed with COPD and started on IV steroids. Patient admits to running out of her home oxygen. 2-D echocardiogram 04/26/[address] Hanson reported as left ventricular chamber size is mildly dilated, moderate concentric left ventricular Urgency, global left ventricular systolic function is moderately decreased, estimated EF is 35-40%, left atrium is mildly dilated, mild MR, mild AR. -Acute on chronic hypoxic respiratory failure due to combination of COPD and CHF : Treat both -Acute exacerbation COPD: Wean down IV steroids, continue DuoNeb's, oxygen, add antibiotics -Acute on chronic systolic heart failure: Increase IV Lasix, monitor kidney function closely -Uncontrolled type 2 diabetes mellitus with hyperglycemia on IV steroids: Restart her home regimen -Right-sided chest pain, elevated troponin: Consulted granite cutter apprentice History Interval history: Patient seen and examined. Follow up on shortness breath which still present. Overnight uneventful. No left sided cp, n/v or severe headaches. Imaging, old records, testing, labs, nursing notes reviewed. Hospitalist Physical - Physical exam Narrative exam: GEN: Morbid obesity BMI 55.6 NAD, AWAKE, ALERT, ORIENTATED x 3 CVS: RRR, NORMAL S1S2 LUNGS/CHEST: Bibasilar crackles, NORMAL CHEST EXPANSION B, diminished AIR ENTRY B ABD: SOFT, NTND, GBS, NO REBOUND OR GUARDING EXT/SKIN: Bilateral leg SIGNIFICANT EDEMA MSK: FROM X 4 EXTREMITIES NEURO: CN 2-12 GROSSLY INTACT, NO FOCAL DEFICITS PSY: CALM - Constitutional Vitals: Temp Pulse Resp BP Pulse Ox 97.8 F 74 18 138/70 98 06/03/17 08:00 06/03/17 08:00 06/03/17 08:00 06/03/17 08:00 06/03/17 08:00 Results - Labs CBC & Chem 7: 06/03/17 05:35 06/03/17 05:35 Labs: Laboratory Last Values WBC 6.6 K/mm3 (4.5-11.0) 06/03/17 05:35 RBC 3.53 M/mm3 (3.65-5.03) L 06/03/17 05:35 Hgb 11.2 gm/dl (10.1-14.3) 06/03/17 05:35 Hct 33.3 % (30.3-42.9) 06/03/17 05:35 MCV 94 fl (79-97) 06/03/17 05:35 MCH 32 pg (28-32) 06/03/17 05:35 MCHC 34 % (30-34) 06/03/17 05:35 RDW 13.7 % (13.2-15.2) 06/03/17 05:35 Plt Count 259 K/mm3 (140-440) 06/03/17 05:35 Lymph % (Auto) 18.4 % (13.4-35.0) 06/03/17 05:35 [place] % (Auto) 5.8 % (0.0-7.3) 06/03/17 05:35 Eos % (Auto) 0.0 % (0.0-4.3) 06/03/17 05:35 Baso % (Auto) 0.3 % (0.0-1.8) 06/03/17 05:35 Lymph # 1.2 K/mm3 (1.2-5.4) 06/03/17 05:35 [place] # 0.4 K/mm3 (0.0-0.8) 06/03/17 05:35 Eos # 0.0 K/mm3 (0.0-0.4) 06/03/17 05:35 Baso # 0.0 K/mm3 (0.0-0.1) 06/03/17 05:35 Seg Neutrophils % 75.5 % (40.0-70.0) H 06/03/17 05:35 Seg Neutrophils # 5.0 K/mm3 (1.8-7.7) 06/03/17 05:35 Sodium 140 mmol/L (137-145) 06/03/17 05:35 Potassium 4.3 mmol/L (3.6-5.0) 06/03/17 05:35 Chloride 93.6 mmol/L (98-107) L 06/03/17 05:35 Carbon Dioxide 32 mmol/L (22-30) H 06/03/17 05:35 Anion Gap 19 mmol/L 06/03/17 05:35 BUN 19 mg/dL (7-17) H 06/03/17 05:35 Creatinine 1.1 mg/dL (0.7-1.2) 06/03/17 05:35 Estimated GFR > 60 ml/min 06/03/17 05:35 BUN/Creatinine Ratio 17.27 % 06/03/17 05:35 Glucose 448 mg/dL (65-100) H 06/03/17 05:35 POC Glucose 460 (70-105) H 06/03/17 11:34 Calcium 8.4 mg/dL (8.4-10.2) 06/03/17 05:35 Total Creatine Kinase 955 units/L (30-135) H 06/02/17 11:49 CK-MB (CK-2) 7.3 ng/mL (0.0-4.0) H 06/02/17 11:49 CK-MB (CK-2) Rel Index 0.7 (0-4) 06/02/17 11:49 Troponin T 0.044 ng/mL (0.00-0.029) H 06/02/17 11:49 Triglycerides 126 mg/dL (2-149) 06/02/17 02:40 Cholesterol 174 mg/dL (50-199) 06/02/17 02:40 LDL Cholesterol Direct 53 mg/dL (50-130) 06/02/17 02:40 HDL Cholesterol 96 mg/dL (40-59) H 06/02/17 02:40 Cholesterol/HDL Ratio 1.81 % 06/02/17 02:40
[2017-06-03] MEDS: NORVASC PO SCH (15:27)
[2017-06-03] MEDS: PROzac PO SCH (15:27)
[2017-06-03] MEDS: LASIX IV SCH (15:27)
[2017-06-03] MEDS: ROCEPHIN/NS 1 GM/50 ML 1 GM/50 ML BAG IV SCH (15:28)
[2017-06-03] MEDS: BABY ASPIRIN PO SCH (15:31)
[2017-06-03] MEDS: BROVANA NEBU IH SCH (20:21)
[2017-06-04] MEDS: SYNTHROID PO SCH (05:50)
[2017-06-04 06:11] LABS: Anion Gap 18 mmol/L; BUN/Creatinine Ratio 22.22; Blood Urea Nitrogen 20 mg/dL (7-17); Calcium 7.9 mg/dL (8.4-10.2); Carbon Dioxide 27 mmol/L (22-30); Chloride 94.8 mmol/L (98-107); Glucose 383 mg/dL (65-100); Sodium 136 mmol/L (137-145)
[2017-06-04 06:16] LABS: Hematocrit 31.6 % (30.3-42.9); Hemoglobin 10.8 gm/dl (10.1-14.3); Mean Corpuscular HGB Conc 34 % (30-34); Mean Corpuscular Hemoglobin 32 pg (28-32); Mean Corpuscular Volume 94 fl (79-97); Red Blood Count 3.37 M/mm3 (3.65-5.03); Red Cell Distribution Width 13.2 % (13.2-15.2); White Blood Count 8.8 K/mm3 (4.5-11.0)
[2017-06-04 06:17] LABS: Platelet Count 197 K/mm3 (140-440)
[2017-06-04] MEDS: NOVOLOG SUB-Q SCH ×4 (09:08→22:49)
[2017-06-04] MEDS: BROVANA NEBU IH SCH ×2 (09:30→20:32)
[2017-06-04] MEDS: DUONEB *Not for PRN Use IH SCH ×3 (09:30→20:32)
--- NOTE | 2017-06-04 09:56 | Consultation ---
History of Present Illness Consult date: 06/04/17 Consult reason: elevated troponin History of present illness: This is a 51yr old woman with multiple medical problems. She has COPD on home oxygen, morbid obesity, Sleep apnea, Hypertension, uncontrolled Diabetes mellitus and Hypothyroidism. A recent echocardiogram demonstrated a decreased left ventricular systolic function with an EF 35-40%. She is admitted with respiratory failure after running out of her oxygen. A cardiac consultation requested for chest pain and elevated troponin. Labs shows a CK of 955 with a CK/MB of 7.3 and a relative index of 0.7. Troponin of 0.044. An ECG was benign with no acute ischemic changes. Review of telemetry strips shows an episode of sinus rhythm with a pause of up to 3 seconds. Medications and Allergies Allergies Allergy/AdvReac Type Severity Reaction Status Date / Time No Known Allergies Allergy Verified 12/18/16 15:18 Home Medications Medication Instructions Recorded Confirmed Last Taken Type Insulin Glulisine [Apidra] 0 units SUB-Q ACHS 30 Days 10/04/16 06/02/17 Unknown Rx Albuterol Sulfate [Albuterol 0.63% 0.63 mg IH TID PRN #1 vial.neb 03/12/1706/02 Unknown Rx NEBS] Albuterol Sulfate [Ventolin HFA] 2 puff IH Q4H PRN #1 hfa.aer.ad 03/12/17 Unknown Rx Arformoterol Nebu [Brovana Nebu] 15 mcg IH Q12HRT #60 ml 03/12/17 06/02/17 Unknown Rx Aspirin 81 mg PO DAILY #30 tab.chew 03/12/17 06/02/17 Unknown Rx FLUoxetine [PROzac] 20 mg PO QDAY #30 capsule 03/12/17 06/02/17 Unknown Rx Ferrous Sulfate [Feosol 325 MG tab] 325 mg PO QDAY #90 tablet 03/12/17 06/02/17 Unknown Rx Ipratropium/Albuterol Sulfate 1 ampul IH Q6HRT #30 ampul.neb 03/12/17 06/02/17 Unknown Rx [DUONEB *Not for PRN Use*] Levothyroxine [Synthroid] 25 mcg PO QAM #30 tablet 03/12/17 06/02/17 Unknown Rx Tiotropium [place] [Spiriva 4 gm IH DAILY #30 mist.inhal 03/12/17 06/02/17 Unknown Rx Respimat] guaiFENesin ER [Mucinex ER] 600 mg PO BID #30 tablet 03/12/17 06/02/17 Unknown Rx oxyCODONE /ACETAMINOPHEN [Percocet 1 tab PO Q6H PRN #12 tablet 03/12/17 Unknown Rx 5/325 mg] Ciprofloxacin HCl [Ciprofloxacin 500 mg PO BID #6 tablet 04/28/17 06/02/17 Unknown Rx TAB] Furosemide [Lasix TAB] 20 mg PO QDAY #30 tablet 04/28/17 06/02/17 Unknown Rx Insulin NPH/Regular [NovoLIN 70/30] 45 unit SUB-Q BIDDIAB #1 vial 04/28/1706/02 Unknown Rx Prednisone [predniSONE 5 mg (6-Day 5 mg PO .TAPER #1 tab.ds.pk 04/28/17 Unknown Rx Pack, 21 Tabs)] amLODIPine [Norvasc] 5 mg PO QDAY #30 tablet 04/28/17 06/02/17 Unknown Rx Active Meds: Active Medications Acetaminophen (Tylenol) 650 mg PO Q4H PRN PRN Reason: Pain MILD(1-3)/Fever >100.5/DE Albuterol (Proventil) 2.5 mg IH Q4HRT PRN PRN Reason: Shortness Of Breath Albuterol/Ipratropium (Duoneb *Not For Prn Use*) 1 ampul IH TIDRT [facility] Last Admin: 06/04/17 09:30 Dose: 1 ampul Amlodipine Besylate (Norvasc) 5 mg PO QDAY [facility] Last Admin: 06/03/17 15:27 Dose: 5 mg Arformoterol Tartrate (Brovana Nebu) 15 mcg IH Q12HRT [facility] Last Admin: 06/04/17 09:30 Dose: 15 mcg Aspirin (Baby Aspirin) 81 mg PO DAILY [facility] Last Admin: 06/03/17 15:31 Dose: 81 mg Bisacodyl (Dulcolax) 10 mg HI QDAY PRN PRN Reason: Constipation unrelieved by MOM Enoxaparin Sodium (Lovenox) 40 mg SUB-Q QDAY [facility] Last Admin: 06/03/17 10:20 Dose: 40 mg Ferrous Sulfate (Feosol) 325 mg PO QDAY [facility] Fluoxetine HCl (Prozac) 20 mg PO QDAY [facility] Last Admin: 06/03/17 15:27 Dose: 20 mg Furosemide (Lasix) 40 mg IV QDAY [facility] Last Admin: 06/03/17 15:27 Dose: 40 mg Guaifenesin (Mucinex Er) 600 mg PO BID PRN PRN Reason: Cough Ceftriaxone Sodium (Rocephin/Ns 1 Gm/50 Ml) 1 gm in 50 mls @ 100 mls/hr IV Q24HR [place] PRN Reason: Protocol Last Admin: 06/03/17 15:28 Dose: 100 mls/hr Insulin Aspart (Novolog) 0 units SUB-Q ACHS [facility] PRN Reason: Protocol Last Admin: 06/04/17 09:08 Dose: 10 units Insulin Human Isoph/Insulin Regular (Novolin 70/30) 45 unit SUB-Q BIDDIAB [facility] Last Admin: 06/04/17 09:09 Dose: 45 unit Levothyroxine Sodium (Synthroid) 25 mcg PO DAILY@0600 [facility] Last Admin: 06/04/17 05:50 Dose: 25 mcg Methylprednisolone Sodium Succinate (Solu-Medrol) 40 mg IV Q8HR [facility] Last Admin: 06/04/17 05:51 Dose: 40 mg Oxycodone/Acetaminophen (Percocet 5/325) 1 tab PO Q6H PRN PRN Reason: Pain , Severe (7-10) Physical Examination Vital Signs BP 125/61 06/02/17 01:42 General appearance: no acute distress, obese Cardiac: Positive: Reg Rate and Rhythm Results 06/04/17 05:29 06/04/17 05:29 CBC 06/04/17 Range/Units 05:29 WBC 8.8 (4.5-11.0) K/mm3 RBC 3.37 L (3.65-5.03) M/mm3 Hgb 10.8 (10.1-14.3) gm/dl Hct 31.6 (30.3-42.9) % Plt Count 197 (140-440) K/mm3 Comprehensive Metabolic Panel 06/04/17 Range/Units 05:29 Sodium 136 L (137-145) mmol/L Potassium 4.0 (3.6-5.0) mmol/L Chloride 94.8 L (98-107) mmol/L Carbon Dioxide 27 (22-30) mmol/L BUN 20 H (7-17) mg/dL Creatinine 0.9 (0.7-1.2) mg/dL Glucose 383 H (65-100) mg/dL Calcium 7.9 L (8.4-10.2) mg/dL Assessment and Plan Acute respiratory failure COPD Sleep Apnea Diabetes mellitus -uncontrolled Hypothyroidism Cardiomyopathy EF 35-40% on echo 04/2017 Elevated troponin
[2017-06-04] MEDS: PROzac PO SCH (11:11)
[2017-06-04] MEDS: LASIX IV SCH (11:11)
[2017-06-04] MEDS: ROCEPHIN/NS 1 GM/50 ML 1 GM/50 ML BAG IV SCH (11:11)
[2017-06-04] MEDS: LOVENOX SUB-Q SCH (11:12)
[2017-06-04] MEDS: FEOSOL PO SCH (11:12)
[2017-06-04] MEDS: BABY ASPIRIN PO SCH (11:12)
[2017-06-04] MEDS: NORVASC PO SCH (11:12)
--- NOTE | 2017-06-04 11:36 | Progress Note ---
Assessment and Plan Assessment and plan: Patient is a 51-year-old woman with history of hypertension, type 2 insulin- dependent diabetes mellitus, morbid obesity BMI 55.6, CHF, obstructive sleep apnea, chronic hypoxic respiratory failure on home O2 due to COPD and hypothyroidism who presents with worsening shortness of breath and right-sided chest pain. Chest x-ray read as mild CHF. She was diagnosed with COPD and started on IV steroids. Patient admits to running out of her home oxygen. 2-D echocardiogram 04/26/[address] Hanson reported as left ventricular chamber size is mildly dilated, moderate concentric left ventricular Urgency, global left ventricular systolic function is moderately decreased, estimated EF is 35-40%, left atrium is mildly dilated, mild MR, mild AR. -Acute on chronic hypoxic respiratory failure due to combination of COPD and CHF : Treat both -Acute exacerbation COPD: Wean down IV steroids, continue DuoNeb's, oxygen, add antibiotics -Acute on chronic systolic heart failure: Increased IV Lasix, monitor kidney function closely -Uncontrolled type 2 diabetes mellitus with hyperglycemia on IV steroids: Restart her home regimen, weaned down iv Steroids -Right-sided chest pain, elevated troponin: Consulted environmental services tech==>"Agree with gentle diuresis, Patient advised about fluid and salt restriction, Coronary angiography is warranted given risk factors. Will plan for tomorrow. (patient is over the weight limit for a MPI scan)" per Cardiology History Interval history: Patient seen and examined. Follow up on shortness breath which still present. Overnight uneventful. No left sided cp, n/v or severe headaches. Imaging, old records, testing, labs, nursing notes reviewed. Hospitalist Physical - Physical exam Narrative exam: GEN: Morbid obesity BMI 55.6 NAD, AWAKE, ALERT, ORIENTATED x 3 CVS: RRR, NORMAL S1S2 LUNGS/CHEST: Bibasilar crackles, NORMAL CHEST EXPANSION B, diminished AIR ENTRY B ABD: SOFT, NTND, GBS, NO REBOUND OR GUARDING EXT/SKIN: Bilateral leg SIGNIFICANT EDEMA MSK: FROM X 4 EXTREMITIES NEURO: CN 2-12 GROSSLY INTACT, NO FOCAL DEFICITS PSY: CALM - Constitutional Vitals: Temp Pulse Resp BP Pulse Ox 97.7 F 89 18 136/78 96 06/04/17 08:00 06/04/17 09:50 06/04/17 09:50 06/04/17 08:00 06/04/17 10:47 General appearance: Present: no acute distress, obese Results - Labs CBC & Chem 7: 06/04/17 05:29 06/04/17 05:29 Labs: Laboratory Last Values WBC 8.8 K/mm3 (4.5-11.0) 06/04/17 05:29 RBC 3.37 M/mm3 (3.65-5.03) L 06/04/17 05:29 Hgb 10.8 gm/dl (10.1-14.3) 06/04/17 05:29 Hct 31.6 % (30.3-42.9) 06/04/17 05:29 MCV 94 fl (79-97) 06/04/17 05:29 MCH 32 pg (28-32) 06/04/17 05:29 MCHC 34 % (30-34) 06/04/17 05:29 RDW 13.2 % (13.2-15.2) 06/04/17 05:29 Plt Count 197 K/mm3 (140-440) 06/04/17 05:29 Lymph % (Auto) 18.4 % (13.4-35.0) 06/03/17 05:35 [place] % (Auto) 5.8 % (0.0-7.3) 06/03/17 05:35 Eos % (Auto) 0.0 % (0.0-4.3) 06/03/17 05:35 Baso % (Auto) 0.3 % (0.0-1.8) 06/03/17 05:35 Lymph # 1.2 K/mm3 (1.2-5.4) 06/03/17 05:35 [place] # 0.4 K/mm3 (0.0-0.8) 06/03/17 05:35 Eos # 0.0 K/mm3 (0.0-0.4) 06/03/17 05:35 Baso # 0.0 K/mm3 (0.0-0.1) 06/03/17 05:35 Seg Neutrophils % 75.5 % (40.0-70.0) H 06/03/17 05:35 Seg Neutrophils # 5.0 K/mm3 (1.8-7.7) 06/03/17 05:35 Sodium 136 mmol/L (137-145) L 06/04/17 05:29 Potassium 4.0 mmol/L (3.6-5.0) 06/04/17 05:29 Chloride 94.8 mmol/L (98-107) L 06/04/17 05:29 Carbon Dioxide 27 mmol/L (22-30) 06/04/17 05:29 Anion Gap 18 mmol/L 06/04/17 05:29 BUN 20 mg/dL (7-17) H 06/04/17 05:29 Creatinine 0.9 mg/dL (0.7-1.2) 06/04/17 05:29 Estimated GFR > 60 ml/min 06/04/17 05:29 BUN/Creatinine Ratio 22.22 % 06/04/17 05:29 Glucose 383 mg/dL (65-100) H 06/04/17 05:29 POC Glucose 376 (70-105) H 06/04/17 05:41 Calcium 7.9 mg/dL (8.4-10.2) L 06/04/17 05:29 Magnesium 2.10 mg/dL (1.7-2.3) 06/04/17 05:29 Total Creatine Kinase 955 units/L (30-135) H 06/02/17 11:49 CK-MB (CK-2) 7.3 ng/mL (0.0-4.0) H 06/02/17 11:49 CK-MB (CK-2) Rel Index 0.7 (0-4) 06/02/17 11:49 Troponin T 0.044 ng/mL (0.00-0.029) H 06/02/17 11:49 Triglycerides 126 mg/dL (2-149) 06/02/17 02:40 Cholesterol 174 mg/dL (50-199) 06/02/17 02:40 LDL Cholesterol Direct 53 mg/dL (50-130) 06/02/17 02:40 HDL Cholesterol 96 mg/dL (40-59) H 06/02/17 02:40 Cholesterol/HDL Ratio 1.81 % 06/02/17 02:40
[2017-06-05 05:13] LABS: Hematocrit 31.4 % (30.3-42.9); Hemoglobin 10.8 gm/dl (10.1-14.3); Mean Corpuscular HGB Conc 34 % (30-34); Mean Corpuscular Hemoglobin 32 pg (28-32); Mean Corpuscular Volume 94 fl (79-97); Platelet Count 268 K/mm3 (140-440); Red Blood Count 3.33 M/mm3 (3.65-5.03); Red Cell Distribution Width 13.1 % (13.2-15.2); White Blood Count 8.9 K/mm3 (4.5-11.0)
[2017-06-05 05:24] LABS: INR 0.99 (0.87-1.13)
[2017-06-05 05:27] LABS: Anion Gap 15 mmol/L; Blood Urea Nitrogen 18 mg/dL (7-17); Calcium 7.8 mg/dL (8.4-10.2); Carbon Dioxide 32 mmol/L (22-30); Chloride 96.3 mmol/L (98-107); Glucose 94 mg/dL (65-100); Sodium 140 mmol/L (137-145)
[2017-06-05] MEDS: SYNTHROID PO SCH (06:02)
[2017-06-05] MEDS ORDERED: D50W (25GM) IV ONE ×2 (07:35→08:00)
[2017-06-05] MEDS: NOVOLOG SUB-Q SCH ×4 (07:49→23:24)
[2017-06-05] MEDS ORDERED: K-DUR PO ONE ×2 (08:00→15:54)
[2017-06-05] MEDS: KCL 10MEQ/100ML 10 MEQ/100 ML BAG IV SCH ×2 (08:46→10:50)
[2017-06-05] MEDS: BROVANA NEBU IH SCH ×2 (08:54→19:49)
[2017-06-05] MEDS: DUONEB *Not for PRN Use IH SCH ×3 (08:54→19:50)
[2017-06-05] MEDS ORDERED: BABY ASPIRIN ONE (10:32)
[2017-06-05] MEDS: BABY ASPIRIN PO SCH (10:33)
--- NOTE | 2017-06-05 10:48 | Progress Note ---
Assessment and Plan Assessment and plan: Patient is a 51-year-old woman with history of hypertension, type 2 insulin- dependent diabetes mellitus, morbid obesity BMI 67.9, CHF, obstructive sleep apnea, chronic hypoxic respiratory failure on home O2 due to COPD and hypothyroidism who presents with worsening shortness of breath and right-sided chest pain. Chest x-ray read as mild CHF. She was diagnosed with COPD and started on IV steroids. Patient admits to running out of her home oxygen. 2-D echocardiogram 04/26/[address] Hanson reported as left ventricular chamber size is mildly dilated, moderate concentric left ventricular Urgency, global left ventricular systolic function is moderately decreased, estimated EF is 35-40%, left atrium is mildly dilated, mild MR, mild AR. -Acute on chronic hypoxic respiratory failure due to combination of COPD and CHF : Treat both -Acute exacerbation COPD: Wean down IV steroids, continue DuoNeb's, oxygen, add antibiotics -Acute on chronic systolic heart failure: Increased IV Lasix, monitor kidney function closely -Uncontrolled type 2 diabetes mellitus with hyperglycemia on IV steroids: Restart her home regimen, weaned down iv Steroids -Right-sided chest pain, elevated troponin: Consulted blueprint duplicator==>"Agree with gentle diuresis, Patient advised about fluid and salt restriction, Coronary angiography today (patient is over the weight limit for a MPI scan)" per Cardiology new issues: hypokalemia, replaced, recheck in am hypoglycemia, made npo for cardiac cath by Optometric Tech but received her home long acting insulin last night, given dextrose and feels better. History Interval history: Patient seen and examined. Follow up on shortness breath which is resolving. Overnight uneventful. No left sided cp, n/v or severe headaches. Imaging, old records, testing, labs, nursing notes reviewed. Hospitalist Physical - Physical exam Narrative exam: GEN: Morbid obesity BMI 55.6 NAD, AWAKE, ALERT, ORIENTATED x 3 CVS: RRR, NORMAL S1S2 LUNGS/CHEST: Bibasilar crackles, NORMAL CHEST EXPANSION B, diminished AIR ENTRY B ABD: SOFT, NTND, GBS, NO REBOUND OR GUARDING EXT/SKIN: Bilateral leg SIGNIFICANT EDEMA MSK: FROM X 4 EXTREMITIES NEURO: CN 2-12 GROSSLY INTACT, NO FOCAL DEFICITS PSY: CALM - Constitutional Vitals: Temp Pulse Resp BP Pulse Ox 97.7 F 87 20 185/80 95 06/05/17 09:44 07/20/17 09:44 06/05/17 09:44 06/05/17 09:44 06/05/17 09:44 General appearance: Present: no acute distress, obese Results - Labs CBC & Chem 7: 06/05/17 04:45 06/05/17 04:45 Labs: Laboratory Last Values WBC 8.9 K/mm3 (4.5-11.0) 06/05/17 04:45 RBC 3.33 M/mm3 (3.65-5.03) L 06/05/17 04:45 Hgb 10.8 gm/dl (10.1-14.3) 06/05/17 04:45 Hct 31.4 % (30.3-42.9) 06/05/17 04:45 MCV 94 fl (79-97) 06/05/17 04:45 MCH 32 pg (28-32) 06/05/17 04:45 MCHC 34 % (30-34) 06/05/17 04:45 RDW 13.1 % (13.2-15.2) L 06/05/17 04:45 Plt Count 268 K/mm3 (140-440) 06/05/17 04:45 Lymph % (Auto) 18.4 % (13.4-35.0) 06/03/17 05:35 [place] % (Auto) 5.8 % (0.0-7.3) 06/03/17 05:35 Eos % (Auto) 0.0 % (0.0-4.3) 06/03/17 05:35 Baso % (Auto) 0.3 % (0.0-1.8) 06/03/17 05:35 Lymph # 1.2 K/mm3 (1.2-5.4) 06/03/17 05:35 [place] # 0.4 K/mm3 (0.0-0.8) 06/03/17 05:35 Eos # 0.0 K/mm3 (0.0-0.4) 06/03/17 05:35 Baso # 0.0 K/mm3 (0.0-0.1) 06/03/17 05:35 Seg Neutrophils % 75.5 % (40.0-70.0) H 06/03/17 05:35 Seg Neutrophils # 5.0 K/mm3 (1.8-7.7) 06/03/17 05:35 PT 13.0 Sec. (12.2-14.9) 06/05/17 04:45 INR 0.99 (0.87-1.13) 06/05/17 04:45 APTT 25.0 Sec. (24.2-36.6) 06/05/17 04:45 Sodium 140 mmol/L (137-145) 06/05/17 04:45 Potassium 3.0 mmol/L (3.6-5.0) L D 06/05/17 04:45 Chloride 96.3 mmol/L (98-107) L 06/05/17 04:45 Carbon Dioxide 32 mmol/L (22-30) H 06/05/17 04:45 Anion Gap 15 mmol/L 06/05/17 04:45 BUN 18 mg/dL (7-17) H 06/05/17 04:45 Creatinine 0.8 mg/dL (0.7-1.2) 06/05/17 04:45 Estimated GFR > 60 ml/min 06/05/17 04:45 BUN/Creatinine Ratio 22.50 % 06/05/17 04:45 Glucose 94 mg/dL (65-100) 06/05/17 04:45 POC Glucose 115 (70-105) H 06/05/17 08:30 Calcium 7.8 mg/dL (8.4-10.2) L 06/05/17 04:45 Magnesium 2.10 mg/dL (1.7-2.3) 06/04/17 05:29 Total Creatine Kinase 955 units/L (30-135) H 06/02/17 11:49 CK-MB (CK-2) 7.3 ng/mL (0.0-4.0) H 06/02/17 11:49 CK-MB (CK-2) Rel Index 0.7 (0-4) 06/02/17 11:49 Troponin T 0.044 ng/mL (0.00-0.029) H 06/02/17 11:49 Triglycerides 126 mg/dL (2-149) 06/02/17 02:40 Cholesterol 174 mg/dL (50-199) 06/02/17 02:40 LDL Cholesterol Direct 53 mg/dL (50-130) 06/02/17 02:40 HDL Cholesterol 96 mg/dL (40-59) H 06/02/17 02:40 Cholesterol/HDL Ratio 1.81 % 06/02/17 02:40
[2017-06-05] MEDS ORDERED: VERSED ONE (10:59)
[2017-06-05] MEDS ORDERED: HEPARIN/NS 5000 UNIT/500ML(CATH LAB) 1,000 ML IR ONE (10:59)
[2017-06-05] MEDS ORDERED: HEPARIN 10,000 UNITS/10 ML ONE (10:59)
[2017-06-05] MEDS ORDERED: CALAN ONE (10:59)
[2017-06-05] MEDS ORDERED: XYLOCAINE 2% INFILTRATI ONE (10:59)
[2017-06-05] MEDS ORDERED: SUBLIMAZE ONE (10:59)
[2017-06-05] MEDS ORDERED: NITROGLYCERIN SYRINGE 3 ML ONE (11:00)
[2017-06-05] MEDS ORDERED: NACL 0.9% 500 ML 500 ML ONE (11:00)
--- NOTE | 2017-06-05 14:49 | Progress Note ---
Assessment and Plan - Patient Problems (1) Chest pain Current Visit: Yes Status: Acute Qualifiers: Chest pain type: C Ischemic chest pain type: I Plan to address problem: Patient underwent a cardiac catheterization today, procedure done via the right radial approach. We found angiographically normal coronary arteries, and a nonischemic cardiomyopathy with left ventricle ejection fraction approximately 35%. Recommend medical therapy for nonischemic cardiomyopathy, with afterload reducing agents, beta blockers and oral antiplatelet therapy. Subjective Date of service: 06/05/17 Interval history: Patient underwent a cardiac catheterization today, procedure done via the right radial approach. We found angiographically normal coronary arteries, and a nonischemic cardiomyopathy with left ventricle ejection fraction approximately 35%. Objective Vital Signs Temp Pulse Pulse Pulse Pulse Resp Resp 06/05/17 13:46 97.9 F 87 18 06/05/17 09:44 97.7 F 87 20 06/05/17 09:05 80 18 06/05/17 08:54 72 18 06/05/17 03:50 98.1 F 61 17 06/05/17 01:25 06/04/17 23:00 97.9 F 86 17 06/04/17 20:56 84 06/04/17 20:55 84 06/04/17 20:34 06/04/17 20:33 81 06/04/17 19:51 92 H 20 06/04/17 19:50 97.8 F 79 17 06/04/17 15:00 97.7 F 80 18 Resp Resp Resp BP Pulse Ox 06/05/17 13:46 139/97 95 06/05/17 09:44 185/80 95 06/05/17 09:05 06/05/17 08:54 96 06/05/17 03:50 100/56 92 06/05/17 01:25 20 22 06/04/17 23:00 122/68 95 06/04/17 20:56 98 06/04/17 20:55 20 06/04/17 20:34 92 06/04/17 20:33 20 06/04/17 19:51 06/04/17 19:50 139/74 99 06/04/17 15:00 150/91 - Physical Examination General: No Apparent Distress, Other (morbidly obese) HEENT: Positive: PERRL Neck: Positive: neck supple Cardiac: Positive: Reg Rate and Rhythm Lungs: Positive: Decreased Breath Sounds Neuro: Positive: Grossly Intact Abdomen: Positive: Soft Skin: Positive: Clear Extremities: Absent: edema - Labs and Meds Coagulation 06/05/17 Range/Units 04:45 PT 13.0 (12.2-14.9) Sec. INR 0.99 (0.87-1.13) APTT 25.0 (24.2-36.6) Sec. CBC 06/05/17 Range/Units 04:45 WBC 8.9 (4.5-11.0) K/mm3 RBC 3.33 L (3.65-5.03) M/mm3 Hgb 10.8 (10.1-14.3) gm/dl Hct 31.4 (30.3-42.9) % Plt Count 268 (140-440) K/mm3 Comprehensive Metabolic Panel 06/05/17 Range/Units 04:45 Sodium 140 (137-145) mmol/L Potassium 3.0 L D (3.6-5.0) mmol/L Chloride 96.3 L (98-107) mmol/L Carbon Dioxide 32 H (22-30) mmol/L BUN 18 H (7-17) mg/dL Creatinine 0.8 (0.7-1.2) mg/dL Glucose 94 (65-100) mg/dL Calcium 7.8 L (8.4-10.2) mg/dL - Imaging and Cardiology EKG: image reviewed
--- NOTE | 2017-06-05 14:57 | Operative Report ---
Operative Report Operative Report: Cardiac catheterization report Date of procedure 06/05/2017 Procedures: Left heart catheterization Selective coronary angiography Left ventricular angiography The patient was prepped and draped in a sterile fashion after informed consent. Right radial artery was entered using Seldinger technique followed by placement of a 6 [place] hydrophilic sheath. Routine radial cocktail was administered via this sheath. Left coronary angiography was performed using # 3.5 left Griselda catheter. A #4 right Griselda was used for right coronary artery. A pigtail catheter was used for left ventricle angiography. Findings: Hemodynamics: Left ventricular end-diastolic pressure was 85, following coronary artery graft. As an air pressure 120/83. There was no significant pressure gradient on pullback across aortic valve. Coronary angiography: Aspirin coronary artery was angiogramed be normal. Left anterior descending artery and its diagonal branches were angiographic with normal. The circumflex artery and its obtuse marginal branches were angiographic be normal. The right coronary artery was dominant and similarly angiographically normal. Left ventriculography: Left ventricular wall moderately dilated. There is moderate to severe left ventricle systolic dysfunction, diffuse hypokinesis. Left ventricle ejection fraction estimated at 35%. Conclusion: Angiographic normal coronary arteries. Dilated, nonischemic cardiomyopathy, moderate to moderately severe left ventricle systolic dysfunction, ejection fraction 35%. Recommend medical therapy for nonischemic cardiomyopathy. Continue risk factor modification.
[2017-06-05] MEDS ORDERED: NACL 0.9% 1000 ML 1,000 ML IV SCH (15:00)
[2017-06-05] MEDS: ROCEPHIN/NS 1 GM/50 ML 1 GM/50 ML BAG IV SCH (15:32)
[2017-06-05] MEDS: FEOSOL PO SCH (15:42)
[2017-06-05] MEDS: COREG PO SCH ×2 (15:42→23:24)
[2017-06-05] MEDS: NORVASC PO SCH (15:42)
[2017-06-05] MEDS: ZESTRIL PO SCH (15:42)
[2017-06-05] MEDS: LASIX IV SCH (15:42)
[2017-06-05] MEDS: PROzac PO SCH (15:44)
[2017-06-06] MEDS: SYNTHROID PO SCH (06:08)
[2017-06-06 06:45] LABS: Hematocrit 32.3 % (30.3-42.9); Hemoglobin 10.8 gm/dl (10.1-14.3); Mean Corpuscular HGB Conc 33 % (30-34); Mean Corpuscular Hemoglobin 31 pg (28-32); Mean Corpuscular Volume 94 fl (79-97); Platelet Count 232 K/mm3 (140-440); Red Blood Count 3.45 M/mm3 (3.65-5.03); Red Cell Distribution Width 13.3 % (13.2-15.2); White Blood Count 8.6 K/mm3 (4.5-11.0)
[2017-06-06 06:53] LABS: Anion Gap 15 mmol/L; Blood Urea Nitrogen 16 mg/dL (7-17); Calcium 7.6 mg/dL (8.4-10.2); Carbon Dioxide 32 mmol/L (22-30); Glucose 321 mg/dL (65-100); Potassium 4.2 mmol/L (3.6-5.0); Sodium 136 mmol/L (137-145)
[2017-06-06] MEDS: BROVANA NEBU IH SCH (07:15)
[2017-06-06] MEDS: NOVOLOG SUB-Q SCH ×3 (08:47→17:34)
--- NOTE | 2017-06-06 08:57 | Progress Note ---
Assessment and Plan Shortness of breath Chest Pain Morbid obesity Combined (systolic and diastolic) CHF LVEF 35-40% on echo 04/2017 [facility] showed normal coronaries Uncontrolled DM Systemic Hypertension DINESH/COPD on home O2 Hypothyroidism ~ 3 sec pause on tele x 1 episode (? secondary to DINESH) no reoccurrence on telemetry Non-specific troponin Recommendations: Continue medical therapy for her nonischemic cardiomyopathy. Advised dietary/fluid restrictions. Stable, cardiac rae. F/U with [facility] within 1 week of discharge. Subjective Date of service: 06/06/17 Interval history: Patient denies shortness of breath and chest pain. Dressing applied to right radial cath site. No events on telemetry. Objective Vital Signs Temp Pulse Pulse Pulse Pulse Pulse Resp 06/06/17 08:01 97.4 F L 67 67 67 22 06/06/17 04:00 97.9 F 63 63 63 20 06/05/17 23:25 97.8 F 70 22 06/05/17 23:24 78 06/05/17 22:50 80 18 06/05/17 22:00 18 06/05/17 20:06 78 06/05/17 19:56 06/05/17 19:50 75 06/05/17 17:00 97.8 F 81 18 06/05/17 13:46 97.9 F 87 18 06/05/17 13:35 84 06/05/17 13:25 89 06/05/17 12:00 83 06/05/17 09:44 97.7 F 87 20 06/05/17 09:05 80 06/05/17 08:54 72 Resp Resp Resp BP BP Pulse Ox 06/06/17 08:01 145/78 94 06/06/17 04:00 85/52 98 06/05/17 23:25 123/58 97 06/05/17 23:24 123/58 06/05/17 22:50 96 06/05/17 22:00 18 18 06/05/17 20:06 20 06/05/17 19:56 95 06/05/17 19:50 18 06/05/17 17:00 128/80 06/05/17 13:46 139/97 95 06/05/17 13:35 20 06/05/17 13:25 18 06/05/17 12:00 06/05/17 09:44 185/80 95 06/05/17 09:05 18 06/05/17 08:54 18 96 - Physical Examination General: No Apparent Distress, Other (morbidly obese) HEENT: Positive: PERRL Cardiac: Positive: Reg Rate and Rhythm - Labs and Meds CBC 06/06/17 Range/Units 06:05 WBC 8.6 (4.5-11.0) K/mm3 RBC 3.45 L (3.65-5.03) M/mm3 Hgb 10.8 (10.1-14.3) gm/dl Hct 32.3 (30.3-42.9) % Plt Count 232 (140-440) K/mm3 Comprehensive Metabolic Panel 06/06/17 Range/Units 06:05 Sodium 136 L (137-145) mmol/L Potassium 4.2 D (3.6-5.0) mmol/L Chloride 93.0 L (98-107) mmol/L Carbon Dioxide 32 H (22-30) mmol/L BUN 16 (7-17) mg/dL Creatinine 0.8 (0.7-1.2) mg/dL Glucose 321 H (65-100) mg/dL Calcium 7.6 L (8.4-10.2) mg/dL - Imaging and Cardiology EKG: image reviewed
[2017-06-06] MEDS: DUONEB *Not for PRN Use IH SCH ×2 (09:47→13:26)
[2017-06-06] MEDS: ROCEPHIN/NS 1 GM/50 ML 1 GM/50 ML BAG IV SCH (11:22)
[2017-06-06] MEDS: LASIX IV SCH (11:23)
[2017-06-06] MEDS: FEOSOL PO SCH (11:23)
[2017-06-06] MEDS: ZESTRIL PO SCH (11:23)
[2017-06-06] MEDS: BABY ASPIRIN PO SCH (11:23)
[2017-06-06] MEDS: PROzac PO SCH (11:24)
[2017-06-06] MEDS: COREG PO SCH (11:24)
--- NOTE | 2017-06-06 15:21 | Discharge Summary ---
Providers - Providers Date of Admission: 06/02/17 04:50 Date of discharge: 06/06/17 Attending physician: ALEXIS RAE 06/03/17 14:42 Consult to Physician [CONS] Routine Consulting Provider: MIRIAM REYES Reason For Exam: recurrent Chest pains, elevated troponin, CHF Place consult to:: Margie HAMMOND Notified:: OFFICE Phone number called:: [phone] Was contact made?: Yes If yes, spoke with:: PAYAM Time called:: 16:31 Comment:: BESS NOTIFIED 06/05/17 14:49 Consult to Cardiac Rehabilitation [CONS] Routine Reason For Exam: Cardiac Rehab Evaluation Primary care physician: PULMONARY NURSE PRACTITIONER Hospitalization Condition: Stable Hospital course: Patient is a 51-year-old woman with history of hypertension, type 2 insulin- dependent diabetes mellitus, morbid obesity BMI 67.9, CHF, obstructive sleep apnea, chronic hypoxic respiratory failure on home O2 due to COPD and hypothyroidism who presents with worsening shortness of breath and right-sided chest pain. Chest x-ray read as mild CHF. She was diagnosed with COPD and started on IV steroids. Patient admits to running out of her home oxygen. 2-D echocardiogram 04/26/[address] Reyes reported as left ventricular chamber size is mildly dilated, moderate concentric left ventricular Urgency, global left ventricular systolic function is moderately decreased, estimated EF is 35-40%, left atrium is mildly dilated, mild MR, mild AR. -Acute on chronic hypoxic respiratory failure due to combination of COPD and CHF : Treat both -Acute exacerbation COPD: Wean down IV steroids, continue DuoNeb's, oxygen, add antibiotics -Acute on chronic systolic heart failure: Increased IV Lasix, monitor kidney function closely -Uncontrolled type 2 diabetes mellitus with hyperglycemia on IV steroids: Restart her home regimen, weaned down iv Steroids -Right-sided chest pain, elevated troponin: Consulted glassware finisher==>"Agree with gentle diuresis, Patient advised about fluid and salt restriction, Coronary angiography (patient is over the weight limit for a MPI scan)" per Cardiology hypokalemia, replaced, recheck in am hypoglycemia, made npo for cardiac cath by Cash Application Representative but received her home long acting insulin last night, given dextrose and feels better. ==>resolved 06/05/17: Operative Report: Cardiac catheterization report Date of procedure 06/05/2017 Procedures: Left heart catheterization Selective coronary angiography Left ventricular angiography The patient was prepped and draped in a sterile fashion after informed consent. Right radial artery was entered using Seldinger technique followed by placement of a 6 Uzbek hydrophilic sheath. Routine radial cocktail was administered via this sheath. Left coronary angiography was performed using # 3.5 left Griselda catheter. A #4 right Griselda was used for right coronary artery. A pigtail catheter was used for left ventricle angiography. Findings: Hemodynamics: Left ventricular end-diastolic pressure was 85, following coronary artery graft. As an air pressure 120/83. There was no significant pressure gradient on pullback across aortic valve. Coronary angiography: Aspirin coronary artery was angiogramed be normal. Left anterior descending artery and its diagonal branches were angiographic with normal. The circumflex artery and its obtuse marginal branches were angiographic be normal. The right coronary artery was dominant and similarly angiographically normal. Left ventriculography: Left ventricular wall moderately dilated. There is moderate to severe left ventricle systolic dysfunction, diffuse hypokinesis. Left ventricle ejection fraction estimated at 35%. Conclusion: Angiographic normal coronary arteries. Dilated, nonischemic cardiomyopathy, moderate to moderately severe left ventricle systolic dysfunction, ejection fraction 35%. Recommend medical therapy for nonischemic cardiomyopathy. Continue risk factor modification. per Cardiology, Dr. Martino: "Shortness of breath Chest Pain Morbid obesity Combined (systolic and diastolic) CHF LVEF 35-40% on echo 04/2017 [facility] showed normal coronaries Uncontrolled DM Systemic Hypertension DINESH/COPD on home O2 Hypothyroidism ~ 3 sec pause on tele x 1 episode (? secondary to DINESH) no reoccurrence on telemetry Non-specific troponin Recommendations: Continue medical therapy for her nonischemic cardiomyopathy. Advised dietary/fluid restrictions. Stable, cardiac rae. F/U with [facility] within 1 week of discharge." Disposition: DC-01 TO HOME OR SELFCARE Time spent for discharge: 38 minutes Core Measure Documentation - Palliative Care Palliative Care/ Comfort Measures: Not Applicable - Core Measures Any of the following diagnoses?: heart failure - VTE Discharge Requirements Deep Vein Thrombosis/Pulmonary Embolism Present on Admission: No Has pt received <5 days of overlap therapy or INR<2.0: No Anticoagulant overlap therapy prescribed at discharge: No Contraindication No Overlap Therapy order at DC: Not Indicated - Heart Failure Discharge Requirements SHIRLEY/ARB for LVSD if EF <40%: Yes Beta chandan at discharge: Yes Exam - Physical Exam Narrative exam: GEN: Morbid obesity BMI 55.6 NAD, AWAKE, ALERT, ORIENTATED x 3 CVS: RRR, NORMAL S1S2 LUNGS/CHEST: Bibasilar crackles improved, NORMAL CHEST EXPANSION B, diminished AIR ENTRY B ABD: SOFT, NTND, GBS, NO REBOUND OR GUARDING EXT/SKIN: Bilateral leg SIGNIFICANT EDEMA MSK: FROM X 4 EXTREMITIES NEURO: CN 2-12 GROSSLY INTACT, NO FOCAL DEFICITS PSY: CALM - Constitutional Vitals: Temp Pulse Resp BP Pulse Ox 97.4 F L 70 18 145/78 94 06/06/17 08:01 06/06/17 13:36 06/06/17 13:36 06/06/17 08:01 06/06/17 08:01 Plan Activity: other Diet: low salt, diabetic Special Instructions: home oxygen via Durable Medical Equipment Needed Upon Discharge: Oxygen Follow up with: PRIMARY CARE,MD [Primary Care Provider] - 3-5 Days Prescriptions: ALBUTEROL NEB's [Proventil 0.083% NEBS] 2.5 mg IH Q4HRT PRN #30 nebu PRN Reason: Shortness Of Breath Arformoterol Nebu [Brovana Nebu] 15 mcg IH Q12HRT #60 ml Carvedilol [Coreg] 6.25 mg PO BID #30 tablet Furosemide [Lasix TAB] 40 mg PO QDAY #60 tablet Levofloxacin [Levaquin] 750 mg PO QDAY #5 tablet methylPREDNISolone [Medrol Dose Ramiro] 1 dose PO DAILY #1 pack oxyCODONE /ACETAMINOPHEN [Percocet 5/325 mg] 1 tab PO Q6H PRN #30 tablet PRN Reason: Pain , Severe (7-10) Ipratropium/Albuterol Sulfate [DUONEB *Not for PRN Use*] 1 ampul IH TIDRT #30 ampul.neb
[2017-06-06 16:05] VITALS: BP 122/56
== END 2017-06-06 18:00 | disposition home or self-care (01) | DRG 286 ==
LOC: ED 01:37 → 3A 04:50
PROVIDERS: ADMIT Internal Medicine; ATTEND Internal Medicine
PROC: 4A023N7 Measurement of Cardiac Sampling and Pressure, Left Heart, Percutaneous Approach (ICD-10-PCS; principal; 2017-06-05)
PROC: B2111ZZ Fluoroscopy of Multiple Coronary Arteries using Low Osmolar Contrast (ICD-10-PCS; 2017-06-05)
PROC: B2151ZZ Fluoroscopy of Left Heart using Low Osmolar Contrast (ICD-10-PCS; 2017-06-05)
DX: I11.0 Hypertensive heart disease with heart failure (principal); J96.21 Acute and chronic respiratory failure with hypoxia; I50.23 Acute on chronic systolic (congestive) heart failure; J44.1 Chronic obstructive pulmonary disease with (acute) exacerbation; R07.9 Chest pain, unspecified; E66.01 Morbid (severe) obesity due to excess calories; F32.9 Major depressive disorder, single episode, unspecified; G47.33 Obstructive sleep apnea (adult) (pediatric); E03.9 Hypothyroidism, unspecified; I42.9 Cardiomyopathy, unspecified; E11.65 Type 2 diabetes mellitus with hyperglycemia; E87.6 Hypokalemia; Z71.3 Dietary counseling and surveillance; Z68.44 Body mass index [BMI] 60.0-69.9, adult; Z99.81 Dependence on supplemental oxygen; Z83.3 Family history of diabetes mellitus; Z98.891 History of uterine scar from previous surgery
CPT/HCPCS: 36415; 71010; 80048; 80061; 82550; 82553; 82962; 83735; 84484; 85025; 85027; 85610; 85730; 93005; 93010; 93458; 94640; 94660; 94760; C1894; J0696; J1644; J1650; J1815; J1940; J2250; J2920; J3010; J3480; J7030; J7040; Q9967

== ENCOUNTER 2020-03-16 12:11 | Emergency (ER) | payer MEDICAID, OTHER ==
[2020-03-16 13:17] LABS: ABG Base Excess 2.3 mmol/L (-2.0-3.0); ABG HCO3 27.9 mmol/L (20.0-26.0); ABG Methemoglobin 0.5 % (0.0-1.5); ABG Oxygen Saturation 93.6 % (95.0-99.0); ABG PCO2 47.6 mm Hg; ABG PH 7.386 pH Units (7.350-7.450); ABG PO2 65.5 mm Hg (80.0-90.0)
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
[2020-03-16 14:20] LABS: Hemoglobin 11.3 gm/dl (10.1-14.3)
[2020-03-16 14:26] LABS: Basophils # (Auto) 0.1 K/mm3 (0.0-0.1); Basophils % (Auto) 0.9 % (0.0-1.8); Eosinophils # (Auto) 0.2 K/mm3 (0.0-0.4); Eosinophils % (Auto) 2.6 % (0.0-4.3); Hematocrit 33.9 % (30.3-42.9); Lymphocytes # (Auto) 2.1 K/mm3 (1.2-5.4); Mean Corpuscular HGB Conc 34 % (30-34); Mean Corpuscular Volume 93 fl (79-97); Monocytes # (Auto) 0.4 K/mm3 (0.0-0.8); Monocytes % (Auto) 6.8 % (0.0-7.3); Platelet Count 255 K/mm3 (140-440); Red Blood Count 3.63 M/mm3 (3.65-5.03); Red Cell Distribution Width 13.7 % (13.2-15.2)
[2020-03-16 14:28] LABS: INR 0.98 (0.87-1.13)
[2020-03-16 14:29] LABS: Partial Thromboplastin Time 26.8 Sec. (24.2-36.6)
[2020-03-16 14:42] LABS: Albumin 4.6 g/dL (3.9-5); BUN/Creatinine Ratio 14; Blood Urea Nitrogen 13 mg/dL (7-17); Calcium 10.2 mg/dL (8.4-10.2); Hemolysis Index 328
[2020-03-16] MEDS ORDERED: ASPIRIN 325 MG TAB PO ONE (15:03)
[2020-03-16 15:09] LABS: Alanine Aminotransferase 30 units/L (7-56)
[2020-03-16] MEDS ORDERED: INSULIN REGULAR, HUMAN 100 UNITS/1 ML IV ONE (15:17)
[2020-03-16 15:20] LABS: Chol/HDL Ratio 2.08 %; HDL Cholesterol 93 mg/dL (40-59); LDL Cholesterol,Direct 82 mg/dL (50-130)
--- NOTE | 2020-03-16 15:24 | XRay Report ---
CHEST 2 VIEWS INDICATION: Dyspnea. COMPARISON: 03/23/2019 FINDINGS: Support devices: None. Heart: Mild cardiomegaly is stable. Lungs/pleura: Mild pulmonary venous congestion has developed since the previous exam. No evidence for infiltrate, pleural fluid or pneumothorax. Additional findings: None. IMPRESSION: Mild cardiomegaly and pulmonary venous congestion. Signer Name: Marcus More Jr, MD Signed: 03/16/2020 3:19 PM Workstation Name: [id number]
--- NOTE | 2020-03-16 16:14 | Cat Scan Report ---
CTA CHEST WITH IV CONTRAST INDICATION: Shortness of breath, elevated d-dimer, CHF. TECHNIQUE: Axial CT images were obtained through the chest after injection of 100 cc Omnipaque 350 IV contrast. 3 plane MIP reconstructions were produced. All CT scans at this location are performed using CT dose reduction for ALARA by means of automated exposure control. COMPARISON: 2 views of the chest from earlier today. CTA of the chest from 03/23/2019. FINDINGS: Motion/beam hardening artifact limits the study. PULMONARY ARTERIES: Good opacification without distinct PTE. AORTA AND ARTERIES: No acute abnormality. MEDIASTINUM: Moderate cardiac megaly is seen with a small pericardial effusion. No mass, lymphadenopa thy or other significant abnormality. LUNGS: There is mild bibasilar atelectasis. The lungs are otherwise clear. No pneumothorax or pleural effusion. ADDITIONAL FINDINGS: None. UPPER ABDOMEN: No acute findings. BONES: No acute abnormality. Degenerative changes are seen along the right shoulder and spine. IMPRESSION: 1. No CT evidence for pulmonary embolism. 2. Moderate cardiomegaly with a small pericardial effusion. Signer Name: Harish Geiger MD Signed: 03/16/2020 4:10 PM Workstation Name: [id number]
[2020-03-16] MEDS ORDERED: ALBUTEROL 2.5 MG/3 ML NEBU IH ONE ×2 (16:34→18:02)
[2020-03-16] MEDS ORDERED: IPRATROPIUM 0.02% NEBU 2.5 ML IH ONE ×2 (16:34→18:02)
[2020-03-16] MEDS ORDERED: ASPIRIN 325 MG TAB ONE (17:05)
[2020-03-16 20:43] VITALS: BP 176/104
== END 2020-03-16 20:46 | disposition home or self-care (01) ==
LOC: ED 12:11
DX: J96.20 Acute and chronic respiratory failure, unspecified whether with hypoxia or hypercapnia (principal); E66.01 Morbid (severe) obesity due to excess calories; I11.0 Hypertensive heart disease with heart failure; I50.9 Heart failure, unspecified; E11.9 Type 2 diabetes mellitus without complications; J44.9 Chronic obstructive pulmonary disease, unspecified; E03.9 Hypothyroidism, unspecified; Z86.2 Personal history of diseases of the blood and blood-forming organs and certain disorders involving the immune mechanism; Z68.44 Body mass index [BMI] 60.0-69.9, adult; Z98.890 Other specified postprocedural states; Z79.899 Other long term (current) drug therapy
CPT/HCPCS: 36415; 71046; 71275; 80053; 80061; 82803; 82962; 83735; 83880; 84484; 85025; 85379; 85610; 85730; 93005; 94640; 96374; 99284; Q9967; 94644; J1815

== ENCOUNTER 2021-08-14 18:32 | Inpatient (IN) | payer MEDICAID ==
[2021-08-14 23:30] LABS: Basophils # (Auto) 0.1 K/mm3 (0.0-0.1); Basophils % (Auto) 0.8 % (0.0-1.8); Eosinophils # (Auto) 0.2 K/mm3 (0.0-0.4); Hematocrit 31.4 % (30.3-42.9); Hemoglobin 10.7 gm/dl (10.1-14.3); Lymphocytes # (Auto) 2.6 K/mm3 (1.2-5.4); Lymphocytes % (Auto) 34.8 % (13.4-35.0); Mean Corpuscular HGB Conc 34 % (30-34); Mean Corpuscular Volume 93 fl (79-97); Monocytes # (Auto) 0.4 K/mm3 (0.0-0.8); Monocytes % (Auto) 5.9 % (0.0-7.3); Platelet Count 304 K/mm3 (140-440); Red Cell Distribution Width 13.4 % (13.2-15.2)
[2021-08-14] MEDS ORDERED: ALBUTEROL 8.5 GM MDI INHALATION IH PRN (23:40)
[2021-08-14] MEDS ORDERED: ALBUTEROL 2.5 MG/3 ML NEBU IH PRN ×2 (23:40→23:48)
--- NOTE | 2021-08-14 23:40 | Emergency Department Report ---
HPI - General Chief Complaint: Dyspnea/Respdistress Time Seen by Provider: 08/14/21 23:32 - HPI HPI: Room 43 The patient is a 55-year-old female present with a chief complaint of homelessness. The patient was reportedly evicted from her hotel today and came to the emergency department secondary to homelessness. Patient has a history of COPD and is normally on home O2 3 to 4 L per nasal cannula and uses CPAP at night. 00: 28 The patient states in the ED approximate 2 hours ago she developed symptoms including lightheadedness with nausea and shortness of breath. Patient denies chest pain/pressure ED Past Medical Hx - Past Medical History Hx Hypertension: Yes Hx Congestive Heart Failure: Yes Hx Diabetes: Yes Hx Seizures: Yes Hx Psychiatric Treatment: Yes (depression) Hx COPD: Yes (3-4 L nasal cannula home O2) Additional medical history: anemia, hypothyroidism, sleep apnea, CPAP machine at home. Obesity - Surgical History Additional Surgical History: x 1 - Family History Family history: no significant - Social History Smoking Status: Unknown if ever smoked Substance Use Type: None - Medications Home Medications: Home Medications Medication Instructions Recorded Confirmed Last Taken Type Ferrous Sulfate [Feosol 325 MG tab] 325 mg PO QDAY #90 tablet 03/12/17 03/23/19 Unknown Rx ALBUTEROL NEB's [Proventil 0.083% 2.5 mg IH Q4HRT PRN #30 nebu 07/19/17 03/23/19 Unknown Rx NEBS] Aspirin 81 mg PO DAILY #30 tab.chew 07/19/17 03/23/19 Unknown Rx Furosemide [Lasix TAB] 40 mg PO 0600,1800 #60 tablet 07/19/17 03/23/19 Unknown Rx Insulin NPH/Regular [NovoLIN 70/30] 30 unit SUB-Q BIDDIAB #1 vial 03/26/19 Unknown Rx amLODIPine 5 mg PO QDAY #30 tablet 03/26/19 Unknown Rx carvediloL [Coreg] 6.25 mg PO BID #60 tablet 03/26/19 Unknown Rx lisinopriL [Zestril TAB] 5 mg PO QDAY #30 tablet 03/26/19 Unknown Rx predniSONE [Deltasone] 20 mg PO QDAY #5 tab 03/26/19 Unknown Rx Albuterol Sulfate [Proventil Hfa] 6.7 gm IH Q4HR PRN #1 hfa.aer.ad 03/16/20 Unknown Rx Furosemide [Lasix TAB] 40 mg PO QDAY #30 tablet 03/16/20 Unknown Rx Insulin Regular, Human [Humulin R] See Protocol IJ TIDAC 30 Days vial 03/16/20 Unknown Rx Levothyroxine [Synthroid] 88 mcg PO QAM #30 tablet 03/16/20 Unknown Rx lisinopriL [Zestril TAB] 10 mg PO QDAY #30 tablet 03/16/20 Unknown Rx metFORMIN [Glucophage] 500 mg PO BID #60 03/16/20 Unknown Rx ED Review of Systems ROS: Stated complaint: NO MEDICAL COMPLAINT/NEEDS HOUSING Other details as noted in HPI Constitutional: no symptoms reported Eyes: denies: eye pain ENT: denies: throat pain Respiratory: no symptoms reported Cardiovascular: denies: chest pain Endocrine: no symptoms reported Gastrointestinal: denies: abdominal pain Genitourinary: denies: dysuria Musculoskeletal: denies: back pain Neurological: denies: headache Physical Exam - Physical Exam Vital Signs: Vital Signs 08/14/21 08/14/21 08/14/21 22:31 22:45 22:50 Temperature 98.5 F Pulse Rate 99 H Respiratory 16 Rate Blood Pressure 149/85 Blood Pressure [Right] O2 Sat by Pulse 94 100 100 Oximetry 08/14/21 22:52 Temperature Pulse Rate 94 H Respiratory 16 Rate Blood Pressure Blood Pressure 159/100 [Right] O2 Sat by Pulse 100 Oximetry Physical Exam: GENERAL: The patient is well-developed well-nourished female sitting in wheelchair not appearing to be in acute distress. [] HEENT: Normocephalic. Atraumatic. Extraocular motions are intact. Patient has moist mucous membranes. NECK: Supple. Trachea midline CHEST/LUNGS: Clear to auscultation. There is no respiratory distress noted. HEART/CARDIOVASCULAR: Regular. There is no tachycardia. There is no gallop rub or murmur. ABDOMEN: Abdomen is soft, nontender. Patient has normal bowel sounds. There is no abdominal distention. SKIN: There is no rash. There is no diaphoresis. NEURO: The patient is awake, alert, and oriented. The patient is cooperative. The patient has no focal neurologic deficits. The patient has normal speech. GCS 15 MUSCULOSKELETAL: There is no evidence of acute injury. ED Course Vital Signs 08/14/21 08/14/21 08/14/21 22:31 22:45 22:50 Temperature 98.5 F Pulse Rate 99 H Respiratory 16 Rate Blood Pressure 149/85 Blood Pressure [Right] O2 Sat by Pulse 94 100 100 Oximetry 08/14/21 22:52 Temperature Pulse Rate 94 H Respiratory 16 Rate Blood Pressure Blood Pressure 159/100 [Right] O2 Sat by Pulse 100 Oximetry ED Medical Decision Making - Lab Data Result diagrams: 08/14/21 23:07 08/14/21 23:07 - EKG Data -: EKG Interpreted by Me EKG shows normal: sinus rhythm Rate: normal - EKG Data When compared to previous EKG there are: no significant change Interpretation: unchanged when compared t (03/16/2020) - Radiology Data Radiology results: report reviewed (Chest x-ray, CT head), image reviewed (Chest x-ray, CT head) interpreted by me: Chest x-ray-no definite focal features, no pneumothorax [address] [address] XRay Report Signed Patient: FABIÁN FORDE MR#: [id number] 3 : 1965 Acct:[id number] Age/Sex: 55 / F ADM Date: 08/14/21 Loc: ED Attending Dr: Ordering Physician: DEONDRE ROD Date of Service: 08/14/21 Procedure(s): XR chest 1V ap Accession Number(s): [id number] cc: DEONDRE ROD Fluoro Time In Minutes: CHEST 1 VIEW INDICATION / CLINICAL INFORMATION: dyspnea STUDY TIME: 2244 COMPARISON: 03/16/2020 FINDINGS: SUPPORT DEVICES: None HEART / MEDIASTINUM: Prominent cardiomegaly LUNGS / PLEURA: Pulmonary vascularity appears within n ormal limits. No definite focal infiltrates are seen. No pneumothorax. ADDITIONAL FINDINGS: No significant additional findings. Signer Name: Ulises Martinez MD Signed: 08/14/2021 11:35 PM Workstation Name: [id number] Transcribed By: KANIKA Dictated By: Ulises Martinez MD Electronically Authenticated By: Ulises Martinez MD Signed Date/Time: 08/14/212334 DD/ 33 TD/TT: Print Cancel [address] [place] [address] Cat Scan Report Signed Patient: FABIÁN FORDE MR#: [id number] 3 : 1965 Acct:[id number] Age/Sex: 55 / F ADM Date: 08/14/21 Loc: ED Attending Dr: Ordering Physician: RAYMUNDO SHAFFER MD Date of Service: 08/15/21 Procedure(s): CT head/brain wo con Accession Number(s): [id number] cc: RAYMUNDO SHAFFER MD CT HEAD WITHOUT CONTRAST INDICATION: Feeling "woozy" TECHNIQUE: All CT scans at this [facility] are performed using CT dose reduction for ALARA by means of automated exposure control. COMPARISON: None available. FINDINGS: BRAIN: No hemorrhage is seen. No evidence of acute infarction is noted. The right frontal parietal subdural space is mildly more prominent than the left. Considering slight rotation on the scanner I do not see significant midline shift. The gyri are not clearly flattened and I believe this is more likely due to asymmetric atrophy than subdural hygroma. ORBITS: Normal as visualized. SOFT TISSUES OF HEAD: Normal. CALVARIUM: Normal. VISUALIZED PARANASAL SINUSES AND MASTOID AIR CELLS: Clear. ADDITIONAL FINDINGS: None. IMPRESSION: No acute intracranial abnormality. Signer Name: Ulises Martinez MD Signed: 08/15/2021 1:45 AM Workstation Name: [id number] Transcribed By: KANIKA Dictated By: Ulises Martinez MD Electronically Authenticated By: Ulises Martinez MD Signed Date/Time: 08/15/21144 DD/ 9 TD/TT: Print Cancel - Differential Diagnosis Homelessness Critical care attestation.: If time is entered above; I have spent that time in minutes in the direct care of this critically ill patient, excluding procedure time. ED Disposition Clinical Impression: Homelessness, Elevated troponin, Shortness of breath Disposition: ADMITTED INPATIENT Is pt being admited?: Yes Does the pt Need Aspirin: Yes Condition: Fair Referrals: PRIMARY CARE, [Primary Care Provider] - 3-5 Days Time of Disposition: 01:54 (Hospitalist called (Dr Galarza/Kelin))
[2021-08-14 23:48] LABS: Alanine Aminotransferase 13 units/L (7-56); Albumin 4.7 g/dL (3.9-5); BUN/Creatinine Ratio 10; Blood Urea Nitrogen 10 mg/dL (7-17); Calcium 10.7 mg/dL (8.4-10.2); Hemolysis Index 2
--- NOTE | 2021-08-15 01:50 | Cat Scan Report ---
CT HEAD WITHOUT CONTRAST INDICATION: Feeling "woozy" TECHNIQUE: All CT scans at this location are performed using CT dose reduction for ALARA by means of automated exposure control. COMPARISON: None available. FINDINGS: BRAIN: No hemorrhage is seen. No evidence of acute infarction is noted. The right frontal parietal chery bdural space is mildly more prominent than the left. Considering slight rotation on the scanner I do not see significant midline shift. The gyri are not clearly flattened and I believe this is more like ly due to asymmetric atrophy than subdural hygroma. ORBITS: Normal as visualized. SOFT TISSUES OF HEAD: Normal. CALVARIUM: Normal. VISUALIZED PARANASAL SINUSES AND MASTOID AIR CELLS: Clear. ADDITIONAL FINDINGS: None. IMPRESSION: No acute intracranial abnormality. Signer Name: Ulises Martinez MD Signed: 08/15/2021 1:45 AM Workstation Name: [id number]
[2021-08-15] MEDS ORDERED: ASPIRIN 325 MG TAB PO ONE (01:53)
[2021-08-15] MEDS ORDERED: ACETAMINOPHEN 325 MG TAB PO PRN ×2 (02:21→03:00)
[2021-08-15] MEDS ORDERED: DEXTROSE 50% IN WATER (25GM) 50 ML SYRINGE IV PRN (03:00)
[2021-08-15] MEDS ORDERED: MAGNESIUM HYDROXIDE (MOM) ORAL LIQD UDC PO PRN (03:00)
[2021-08-15] MEDS ORDERED: ONDANSETRON 4 MG/2 ML INJ IV PRN (03:00)
[2021-08-15] MEDS ORDERED: MORPHINE 4 MG/1 ML INJ IV PRN ×2 (03:00)
[2021-08-15] MEDS ORDERED: NITROGLYCERIN 0.4 MG TAB SUBL SL PRN (03:00)
[2021-08-15] MEDS ORDERED: MORPHINE 2 MG/1 ML INJ IV PRN (03:00)
[2021-08-15 03:05] LABS: Chol/HDL Ratio 2.09 %; HDL Cholesterol 107 mg/dL (40-59); LDL Cholesterol,Direct 92 mg/dL (50-130)
--- NOTE | 2021-08-15 03:30 | History and Physical Report ---
History of Present Illness Date of examination: 08/15/21 Date of admission: 08/15/21 02:22 Chief complaint: Homelessness History of present illness: 55-year-old female with multiple past medical problems including hypertension, CHF, depression, diabetes mellitus, history of seizure disorder, hypothyroidism, sleep apnea morbid obesity brought into the emergency room because of homelessness. Patient was said to have been evicted from [facility] today and became homeless and therefore brought to the emergency room by the police. She denies any major problems today however during the course of her stay in the emergency room she indicates that she became lightheaded and had some nausea and shortness of breath. She denies any chest pain, no headache, no fever or chills. Patient denies any recent travel. Denies any sick contacts. Denies contact with anyone with COVID-19. She does not recall getting the COVID-19 vaccination. Work-up in the emergency room today, significant findings were that of troponin of 0.148 EKG was unremarkable and chest x-ray showed no acute findings. Past History Past Medical History: COPD, diabetes, heart failure, hypertension, hyperlipidemia, hypothyroidism, seizures, other (Sleep Apnea- on Cpap at night,Obesity,Depression) Past Surgical History: Social history: other (Homeless) Family history: no significant family history Medications and Allergies Allergies Allergy/AdvReac Type Severity Reaction Status Date / Time No Known Allergies Allergy Verified 08/15/21 12:51 Home Medications Medication Instructions Recorded Confirmed Last Taken Type Ferrous Sulfate [Feosol 325 MG tab] 325 mg PO QDAY #90 tablet 03/12/17 03/23/19 Unknown Rx ALBUTEROL NEB's [Proventil 0.083% 2.5 mg IH Q4HRT PRN #30 nebu 07/19/17 03/23/19 Unknown Rx NEBS] Aspirin 81 mg PO DAILY #30 tab.chew 07/19/17 03/23/19 Unknown Rx Furosemide [Lasix TAB] 40 mg PO 0600,1800 #60 tablet 07/19/17 03/23/19 Unknown Rx Insulin NPH/Regular [NovoLIN 70/30] 30 unit SUB-Q BIDDIAB #1 vial 03/26/19 Unknown Rx amLODIPine 5 mg PO QDAY #30 tablet 03/26/19 Unknown Rx carvediloL [Coreg] 6.25 mg PO BID #60 tablet 03/26/19 Unknown Rx lisinopriL [Zestril TAB] 5 mg PO QDAY #30 tablet 03/26/19 Unknown Rx predniSONE [Deltasone] 20 mg PO QDAY #5 tab 03/26/19 Unknown Rx Albuterol Sulfate [Proventil Hfa] 6.7 gm IH Q4HR PRN #1 hfa.aer.ad 03/16/20 Unknown Rx Furosemide [Lasix TAB] 40 mg PO QDAY #30 tablet 03/16/20 Unknown Rx Insulin Regular, Human [Humulin R] See Protocol IJ TIDAC 30 Days vial 03/16/20 Unknown Rx Levothyroxine [Synthroid] 88 mcg PO QAM #30 tablet 03/16/20 Unknown Rx lisinopriL [Zestril TAB] 10 mg PO QDAY #30 tablet 03/16/20 Unknown Rx metFORMIN [Glucophage] 500 mg PO BID #60 03/16/20 Unknown Rx Active Meds: Active Medications Acetaminophen (Acetaminophen 325 Mg Tab) 650 mg PO Q4H PRN PRN Reason: Pain MILD(1-3)/Fever >100.5/DE Albuterol (Albuterol 2.5 Mg/3 Ml Nebu) 2.5 mg IH Q4HRT PRN PRN Reason: Shortness Of Breath Amlodipine Besylate (Amlodipine 5 Mg Tab) 5 mg PO QDAY [facility] Aspirin (Aspirin 81 Mg Tab Chew) 81 mg PO DAILY [facility] Aspirin (Aspirin Ec 325 Mg Tab) 325 mg PO QDAY [facility] Carvedilol (Carvedilol 6.25 Mg Tab) 6.25 mg PO BID [facility] Dextrose (Dextrose 50% In Water (25gm) 50 Ml Syringe) 50 ml IV Q30MIN PRN; Protocol PRN Reason: Hypoglycemia Ferrous Sulfate (Ferrous Sulfate 325 Mg Tab) 325 mg PO QDAY [facility] Furosemide (Furosemide 40 Mg Tab) 40 mg PO 0600,1800 [facility] Insulin Human Isoph/Insulin Regular (Insulin Nph/Regular 70/30 Inj) 30 unit SUB-Q BIDDIAB [facility] Insulin Human Lispro (Insulin Lispro 100 Unit/Ml) 0 unit SUB-Q ACHS [facility]; Protocol Levothyroxine Sodium (Levothyroxine 88 Mcg Tab) 88 mcg PO QAM@0600 [facility] Lisinopril (Lisinopril 5 Mg Tab) 5 mg PO QDAY [facility] Magnesium Hydroxide (Magnesium Hydroxide (Mom) Oral Liqd Udc) 30 ml PO Q4H PRN PRN Reason: Constipation Metformin HCl (Metformin 500 Mg Tab) 500 mg PO BIDDIAB [facility] Morphine Sulfate (Morphine 2 Mg/1 Ml Inj) 2 mg IV Q4H PRN PRN Reason: Pain, Moderate (4-6) Morphine Sulfate (Morphine 4 Mg/1 Ml Inj) 4 mg IV Q4H PRN PRN Reason: Pain , Severe (7-10) Morphine Sulfate (Morphine 4 Mg/1 Ml Inj) 2 mg IV Q5MIN PRN PRN Reason: Chest Pain unrelieved by NTG Nitroglycerin (Nitroglycerin 0.4 Mg Tab Subl) 0.4 mg SL Q5M PRN PRN Reason: Chest Pain Ondansetron HCl (Ondansetron 4 Mg/2 Ml Inj) 4 mg IV Q8H PRN PRN Reason: Nausea And Vomiting Sodium Chloride (Sodium Chloride 0.9% 10 Ml Flush Syringe) 10 ml IV BID [facility] Sodium Chloride (Sodium Chloride 0.9% 10 Ml Flush Syringe) 10 ml IV PRN PRN PRN Reason: LINE FLUSH Review of Systems Constitutional: no fever, no chills Ears, nose, mouth and throat: no nasal congestion, no sore throat Cardiovascular: no chest pain, no palpitations Respiratory: no cough, no shortness of breath Gastrointestinal: nausea, no abdominal pain, no vomiting, no diarrhea Genitourinary Female: no flank pain, no dysuria, no hematuria Musculoskeletal: no neck pain, no low back pain Integumentary: no rash, no pruritis Neurological: no headaches, no confusion Psychiatric: no anxiety, no depression Endocrine: no polydipsia, no polyuria, no nocturia Exam - Constitutional Vitals: Temp Pulse Resp BP Pulse Ox 98.5 F 84 13 150/88 96 08/14/21 22:31 08/15/21 00:16 08/15/21 00:16 08/15/21 00:16 08/15/21 02:48 General appearance: Present: no acute distress, well-nourished, obese - EENT Eyes: Present: PERRL, EOM intact. Absent: scleral icterus ENT: hearing intact, clear oral mucosa, dentition normal - Neck Neck: Present: supple, normal ROM - Respiratory Respiratory effort: normal Respiratory: bilateral: CTA - Cardiovascular Rhythm: regular Heart Sounds: Present: S1 & S2. Absent: gallop, systolic murmur, diastolic murmur, rub, click - Extremities Extremities: no ischemia, pulses intact, pulses symmetrical, No edema, normal temperature, normal color, Full ROM Peripheral Pulses: within normal limits - Abdominal General gastrointestinal: Present: soft, non-tender, non-distended, normal bowel sounds. Absent: mass - Integumentary Integumentary: Present: clear, warm, dry. Absent: rash - Musculoskeletal Musculoskeletal: strength equal bilaterally - Psychiatric Psychiatric: appropriate mood/affect, intact judgment & insight, memory intact, cooperative - Neurologic Neurologic: CNII-XII intact, no focal deficits, moves all extremities HEART Score - HEART Score Troponin: Troponin T 0.136 ng/mL (0.00-0.029) H* 08/15/21 02:00 Results - Labs CBC & Chem 7: 08/15/21 04:00 08/15/21 04:00 Labs: Abnormal lab results 08/14/21 08/14/21 08/15/21 Range/Units 23:07 23:07 02:00 RBC 3.40 L (3.65-5.03) M/mm3 Chloride 96.4 L (98-107) mmol/L Carbon Dioxide 32 H (22-30) mmol/L Glucose 329 H (65-100) mg/dL Calcium 10.7 H (8.4-10.2) mg/dL Troponin T 0.148 H* 0.136 H* (0.00-0.029) ng/mL Total Protein 8.5 H (6.3-8.2) g/dL Triglycerides 207 H (2-149) mg/dL Cholesterol 224 H (50-199) mg/dL HDL Cholesterol 107 H (40-59) mg/dL Assessment and Plan - Patient Problems (1) Elevated troponin Current Visit: Yes Status: Acute Plan to address problem: Patient has denied any chest pain Will trend cardiac enzymes. We will request cardiology evaluation. (2) Homelessness Current Visit: Yes Status: Acute Plan to address problem: We will place consult to social worker health services/case management for evaluation (3) Diabetes Current Visit: No Status: Acute Plan to address problem: Patient placed on sliding scale insulin. We will monitor Accu-Cheks. (4) HTN (hypertension) Current Visit: No Status: Acute Plan to address problem: We will resume routine home medications once reconciled and monitor vital signs closely. (5) Hypothyroidism Current Visit: No Status: Chronic Plan to address problem: We will resume routine home medications once reconciled. (6) Obesities, morbid Current Visit: No Status: Chronic Plan to address problem: Dietary consult placed for evaluation. (7) DVT prophylaxis Current Visit: No Status: Acute Plan to address problem: Patient placed on subcutaneous Lovenox. (8) Full code status Current Visit: Yes Status: Acute Plan to address problem: Patient is a full code.
[2021-08-15 04:31] LABS: Basophils # (Auto) 0.1 K/mm3 (0.0-0.1); Basophils % (Auto) 0.8 % (0.0-1.8); Eosinophils # (Auto) 0.2 K/mm3 (0.0-0.4); Hematocrit 29.7 % (30.3-42.9); Hemoglobin 10.1 gm/dl (10.1-14.3); Lymphocytes # (Auto) 3.1 K/mm3 (1.2-5.4); Lymphocytes % (Auto) 38.3 % (13.4-35.0); Mean Corpuscular HGB Conc 34 % (30-34); Mean Corpuscular Volume 94 fl (79-97); Monocytes # (Auto) 0.6 K/mm3 (0.0-0.8); Monocytes % (Auto) 7.1 % (0.0-7.3); Platelet Count 267 K/mm3 (140-440); Red Blood Count 3.15 M/mm3 (3.65-5.03); Red Cell Distribution Width 13.4 % (13.2-15.2)
[2021-08-15 05:06] LABS: BUN/Creatinine Ratio 10; Blood Urea Nitrogen 10 mg/dL (7-17); Calcium 9.9 mg/dL (8.4-10.2); Hemolysis Index 4
[2021-08-15] MEDS: LEVOTHYROXINE 88 MCG TAB PO SCH (06:56)
[2021-08-15] MEDS: FUROSEMIDE 40 MG TAB PO SCH ×2 (06:56→18:13)
[2021-08-15] MEDS: metFORMIN 500 MG TAB PO SCH ×2 (08:13→18:13)
[2021-08-15] MEDS: INSULIN LISPRO 100 UNIT/ML SUB-Q SCH ×4 (08:13→21:35)
[2021-08-15] MEDS: INSULIN NPH/REGULAR 70/30 INJ SUB-Q SCH (08:44)
[2021-08-15] MEDS: FERROUS SULFATE 325 MG TAB PO SCH (09:58)
[2021-08-15] MEDS: LISINOPRIL 5 MG TAB PO SCH (09:58)
[2021-08-15] MEDS: amLODIPine 5 MG TAB PO SCH (09:58)
[2021-08-15] MEDS: carvediloL 6.25 MG TAB PO SCH ×2 (09:59→21:36)
[2021-08-15] MEDS ORDERED: ASPIRIN 81 MG TAB CHEW PO SCH (10:00)
--- NOTE | 2021-08-15 12:24 | Consultation ---
History of Present Illness Consult date: 08/15/21 Consult reason: elevated troponin History of present illness: This is a morbidly obese 55-year old woman with sleep apnea and COPD on home oxygen. She also has a history of nonischemic cardiomyopathy by a cardiac catheterization in 2017 that revealed normal coronaries but a decreased ejection fraction of 35%. An echocardiogram done 2 years ago showed persistent cardiomyopathy, ejection fraction 35-40%. Co-morbidities includes Hypertension, Diabetes mellitus and Hypothyroidism. She presents to this hospital after she was forced to leave [facility] where she was living. While sitting in the hospital waiting area she ran out of oxygen and bec don short of breath, admitted with respiratory failure. A cardiac consultation requested for chronic elevated troponin. A chest x-ray done shows cardiomegaly but no evidence of interstitial edema. Currently, she is resting in bed and appears comfortable. She denies chest pain. Past History Past Medical History: COPD, diabetes, heart failure, hypertension, hy perlipidemia, hypothyroidism, seizures, other (Sleep Apnea- on Cpap at night,Obesity,Depression) Past Surgical History: Social history: other (Homeless) Family history: no significant family history Medications and Allergies Allergies Allergy/AdvReac Type Severity Reaction Status Date / Time No Known Allergies Allergy Verified 08/14/21 22:40 Home Medications Medication Instructions Recorded Confirmed Last Taken Type Ferrous Sulfate [Feosol 325 MG tab] 325 mg PO QDAY #90 tablet 03/12/17 03/23/19 Unknown Rx ALBUTEROL NEB's [Proventil 0.083% 2.5 mg IH Q4HRT PRN #30 nebu 07/19/17 03/23/19 Unknown Rx NEBS] Aspirin 81 mg PO DAILY #30 tab.chew 07/19/17 03/23/19 Unknown Rx Furosemide [Lasix TAB] 40 mg PO 0600,1800 #60 tablet 07/19/17 03/23/19 Unknown Rx Insulin NPH/Regular [NovoLIN 70/30] 30 unit SUB-Q BIDDIAB #1 vial 03/26/19 Unknown Rx amLODIPine 5 mg PO QDAY #30 tablet 03/26/19 Unknown Rx carvediloL [Coreg] 6.25 mg PO BID #60 tablet 03/26/19 Unknown Rx lisinopriL [Zestril TAB] 5 mg PO QDAY #30 tablet 05/10/19 Unknown Rx predniSONE [Deltasone] 20 mg PO QDAY #5 tab 03/26/19 Unknown Rx Albuterol Sulfate [Proventil Hfa] 6.7 gm IH Q4HR PRN #1 hfa.aer.ad 03/16/20 Unknown Rx Furosemide [Lasix TAB] 40 mg PO QDAY #30 tablet 03/16/20 Unknown Rx Insulin Regular, Human [Humulin R] See Protocol IJ TIDAC 30 Days vial 03/16/20 Unknown Rx Levothyroxine [Synthroid] 88 mcg PO QAM #30 tablet 03/16/20 Unknown Rx lisinopriL [Zestril TAB] 10 mg PO QDAY #30 tablet 03/16/20 Unknown Rx metFORMIN [Glucophage] 500 mg PO BID #60 03/16/20 Unknown Rx Active Meds: Active Medications Acetaminophen (Acetaminophen 325 Mg Tab) 650 mg PO Q4H PRN PRN Reason: Pain MILD(1-3)/Fever >100.5/DE Albuterol (Albuterol 2.5 Mg/3 Ml Nebu) 2.5 mg IH Q4HRT PRN PRN Reason: Shortness Of Breath Amlodipine Besylate (Amlodipine 5 Mg Tab) 5 mg PO QDAY [facility] Last Admin: 08/15/21 09:58 Dose: 5 mg Documented by: Aspirin (Aspirin Ec 325 Mg Tab) 325 mg PO QDAY [facility] Carvedilol (Carvedilol 6.25 Mg Tab) 6.25 mg PO BID [facility] Last Admin: 08/15/21 09:59 Dose: 6.25 mg Documented by: Dextrose (Dextrose 50% In Water (25gm) 50 Ml Syringe) 50 ml IV Q30MIN PRN; Protocol PRN Reason: Hypoglycemia Enoxaparin Sodium (Enoxaparin 40 Mg/0.4 Ml Inj) 40 mg SUB-Q QDAY@2200 [facility]; Protocol Ferrous Sulfate (Ferrous Sulfate 325 Mg Tab) 325 mg PO QDAY [facility] Last Admin: 08/15/21 09:58 Dose: 325 mg Documented by: Furosemide (Furosemide 40 Mg Tab) 40 mg PO 0600,1800 [facility] Last Admin: 08/15/21 06:56 Dose: 40 mg Documented by: Insulin Human Isoph/Insulin Regular (Insulin Nph/Regular 70/30 Inj) 30 unit SUB-Q BIDDIAB [facility] Last Admin: 08/15/21 08:44 Dose: 30 unit Documented by: Insulin Human Lispro (Insulin Lispro 100 Unit/Ml) 0 unit SUB-Q ACHS [facility]; Protocol Last Admin: 08/15/21 11:24 Dose: 2 unit Documented by: Levothyroxine Sodium (Levothyroxine 88 Mcg Tab) 88 mcg PO QAM@0600 [facility] Last Admin: 08/15/21 06:56 Dose: 88 mcg Documented by: Lisinopril (Lisinopril 5 Mg Tab) 5 mg PO QDAY [facility] Last Admin: 08/15/21 09:58 Dose: 5 mg Documented by: Magnesium Hydroxide (Magnesium Hydroxide (Mom) Oral Liqd Udc) 30 ml PO Q4H PRN PRN Reason: Constipation Metformin HCl (Metformin 500 Mg Tab) 500 mg PO BIDDIAB [facility] Last Admin: 08/15/21 08:13 Dose: 500 mg Documented by: Morphine Sulfate (Morphine 2 Mg/1 Ml Inj) 2 mg IV Q4H PRN PRN Reason: Pain, Moderate (4-6) Morphine Sulfate (Morphine 4 Mg/1 Ml Inj) 4 mg IV Q4H PRN PRN Reason: Pain , Severe (7-10) Morphine Sulfate (Morphine 4 Mg/1 Ml Inj) 2 mg IV Q5MIN PRN PRN Reason: Chest Pain unrelieved by NTG Nitroglycerin (Nitroglycerin 0.4 Mg Tab Subl) 0.4 mg SL Q5M PRN PRN Reason: Chest Pain Ondansetron HCl (Ondansetron 4 Mg/2 Ml Inj) 4 mg IV Q8H PRN PRN Reason: Nausea And Vomiting Sodium Chloride (Sodium Chloride 0.9% 10 Ml Flush Syringe) 10 ml IV BID [facility] Last Admin: 08/15/21 09:59 Dose: 10 ml Documented by: Sodium Chloride (Sodium Chloride 0.9% 10 Ml Flush Syringe) 10 ml IV PRN PRN PRN Reason: LINE FLUSH Review of Systems Cardiovascular: no chest pain Physical Examination Vital Signs Temp Pulse Resp BP Pulse Ox 98.5 F 99 H 16 149/85 94 08/14/21 22:31 08/14/21 22:31 08/14/21 22:31 08/14/21 22:31 08/14/21 22:31 General appearance: no acute distress, obese HEENT: Positive: PERRL Neck: Positive: trachea midline Cardiac: Positive: Reg Rate and Rhythm Lungs: Positive: Decreased Breath Sounds Neuro: Positive: Grossly Intact Results 08/15/21 04:00 08/15/21 04:00 Cardiac Enzymes 08/14/21 Range/Units 23:07 AST 35 (5-40) units/L Lipids 08/14/21 Range/Units 23:07 Triglycerides 207 H (2-149) mg/dL Cholesterol 224 H (50-199) mg/dL HDL Cholesterol 107 H (40-59) mg/dL Cholesterol/HDL Ratio 2.09 % CBC 08/14/21 08/15/21 Range/Units 23:07 04:00 WBC 7.5 8.0 (4.5-11.0) K/mm3 RBC 3.40 L 3.15 L (3.65-5.03) M/mm3 Hgb 10.7 10.1 (10.1-14.3) gm/dl Hct 31.4 29.7 L (30.3-42.9) % Plt Count 304 267 (140-440) K/mm3 Lymph # (Auto) 2.6 3.1 (1.2-5.4) K/mm3 Archer # (Auto) 0.4 0.6 (0.0-0.8) K/mm3 Eos # (Auto) 0.2 0.2 (0.0-0.4) K/mm3 Baso # (Auto) 0.1 0.1 (0.0-0.1) K/mm3 Comprehensive Metabolic Panel 08/14/21 08/15/21 Range/Units 23:07 04:00 Sodium 139 139 (137-145) mmol/L Potassium 3.9 3.5 L (3.6-5.0) mmol/L Chloride 96.4 L 96.8 L (98-107) mmol/L Carbon Dioxide 32 H 33 H (22-30) mmol/L BUN 10 10 (7-17) mg/dL Creatinine 1.0 1.0 (0.6-1.2) mg/dL Glucose 329 H 287 H (65-100) mg/dL Calcium 10.7 H 9.9 (8.4-10.2) mg/dL AST 35 (5-40) units/L ALT 13 (7-56) units/L Alkaline Phosphatase 67 (35-129) units/L Total Protein 8.5 H (6.3-8.2) g/dL Albumin 4.7 (3.9-5) g/dL Assessment and Plan Chronic non-specific troponin Respiratory failure due to running out of home oxygen Nonischemic cardiomyopathy LVEF 35-40% by echo in 2018 LVEF 35-40% on echo 04/2017. [facility] 05/2017 showed normal coronaries, EF 35%. DM Hypertension DINESH/COPD on home oxygen Hypothyroidism Morbid obesity Recommendations: Low sodium diet and fluid restrictions. Continue medical therapy for her nonischemic cardiomyopathy. Case management to address social issues and placement. Otherwise, conservative cardiac management.
--- NOTE | 2021-08-15 14:55 | Event Note ---
Date: 08/15/21 Patient discussed with case management and social work today on rounds. Patient was also seen and evaluated by me. Currently homeless without social support. We will continue current care.
[2021-08-15] MEDS ORDERED: ENOXAPARIN 40 MG/0.4 ML INJ SUB-Q SCH (22:00)
[2021-08-16] MEDS: LEVOTHYROXINE 88 MCG TAB PO SCH (06:11)
[2021-08-16] MEDS: FUROSEMIDE 40 MG TAB PO SCH (06:11)
[2021-08-16 08:45] LABS: BUN/Creatinine Ratio 11; Blood Urea Nitrogen 9 mg/dL (7-17); Calcium 9.5 mg/dL (8.4-10.2); Hemolysis Index 31
[2021-08-16 09:15] LABS: INR 0.88 (0.87-1.13)
[2021-08-16] MEDS: metFORMIN 500 MG TAB PO SCH (09:34)
[2021-08-16] MEDS: INSULIN NPH/REGULAR 70/30 INJ SUB-Q SCH ×2 (09:34→10:47)
[2021-08-16] MEDS: INSULIN LISPRO 100 UNIT/ML SUB-Q SCH ×2 (09:35→12:24)
[2021-08-16] MEDS ORDERED: ASPIRIN EC 325 MG TAB PO SCH (10:00)
[2021-08-16] MEDS: FERROUS SULFATE 325 MG TAB PO SCH (10:49)
[2021-08-16] MEDS: LISINOPRIL 5 MG TAB PO SCH (10:49)
[2021-08-16] MEDS: carvediloL 6.25 MG TAB PO SCH (10:49)
[2021-08-16] MEDS: amLODIPine 5 MG TAB PO SCH (10:49)
[2021-08-16 11:14] LABS: Basophils % (Auto) 0.5 % (0.0-1.8); Eosinophils # (Auto) 0.2 K/mm3 (0.0-0.4); Hemoglobin 9.9 gm/dl (10.1-14.3); Lymphocytes # (Auto) 2.7 K/mm3 (1.2-5.4); Mean Corpuscular HGB Conc 34 % (30-34); Mean Corpuscular Volume 93 fl (79-97); Monocytes # (Auto) 0.4 K/mm3 (0.0-0.8); Monocytes % (Auto) 5.2 % (0.0-7.3); Platelet Count 269 K/mm3 (140-440); Red Blood Count 3.11 M/mm3 (3.65-5.03); Red Cell Distribution Width 13.7 % (13.2-15.2)
[2021-08-16] MEDS ORDERED: IPRATROPIUM/ALBUTEROL SULFATE 3 ML AMPUL.NEB IH NR (12:30)
--- NOTE | 2021-08-16 12:47 | Discharge Summary ---
Providers - Providers Date of Admission: 08/15/21 02:22 Date of discharge: 08/16/21 Attending physician: JEANNETTE OLSEN MD 08/14/21 23:37 Consult to Case Management [CONS] Stat Services Needed at Discharge: Operations Research Analyst Notified:: n Additional Physician Instructions: Homeless 08/15/21 Consult to Cardiac Rehabilitation [CONS] Routine Reason For Exam: Phase I 08/15/21 02:22 Consult to Cardiology [CONS] Routine Consulting Provider: RAYA UNDERWOOD Reason For Exam: ELEVATED TROPONIN Consult to Dietitian/Nutrition [CONS] Routine Physician Instructions: Reason For Exam: Reason for Consult: Diet education 08/15/21 10:00 Occupational Therapy Evaluate and Treat [CONS] Urgent Comment: Reason For Exam: Decreased physical ability to perform ADL's. 08/15/21 10:02 Physical Therapy Evaluation and Treat [CONS] Urgent Comment: Reason For Exam: Decreased ability to ambulate Mode of Transport?: Walker Weight bearing status?: Full wt bearing Assistive devices?: Yes If so list: Walker Primary care physician: DEBRA MC Hospitalization Reason for admission: Elevated troponin Condition: Fair Hospital course: Patient is a 55-year-old woman with a past medical history of morbid obesity, chronic respiratory failure on home O2, type 2 diabetes and self-reported heart failure who was brought in by EMS after being evicted from her hotel room. On lab work, she was found to have elevated troponin. Cardiology was consulted. Serial troponins remained unchanged. Social work was consulted. Patient was discharged with up-to-date prescriptions and back to the care of her son. Disposition: 01 HOME / SELF CARE / HOMELESS Final Discharge Diagnosis (Prints w/discharge instructions): Elevated troponin. Chronic respiratory failure. Morbid obesity. Homelessness Time spent for discharge: 20 minutes Core Measure Documentation - Palliative Care Palliative Care/ Comfort Measures: Not Applicable - Core Measures Any of the following diagnoses?: heart failure - Heart Failure Discharge Requirements SHIRLEY/ARB for LVSD if EF <40%: Yes Beta chandan at discharge: Yes Exam - Physical Exam Narrative exam: GENERAL: Morbidly obese. Sitting on the side of the bed in no acute distress. HEENT: Nasal cannula at 2 L/min CHEST/LUNGS: CTAB on room air HEART/CARDIOVASCULAR: RRR. No murmur, rubs or gallops appreciated. ABDOMEN: +BS. NT/ND. SKIN: Dry. NEURO: No focal motor deficit. Follows all commands and is ambulatory. EXTREMITIES: No cyanosis, clubbing or edema. PSYCH: Cooperative. - Constitutional Vitals: Temp Pulse Resp BP Pulse Ox 98.6 F 85 20 178/95 100 08/16/21 11:15 08/16/21 11:15 08/16/21 11:15 08/16/21 11:15 08/16/21 11:26 - Allied Health Allied health notes reviewed: social work Plan Assessment: Patient stable. On home O2 requirements. No complaints at this time. Will discharge home with son. Follow up with: PRIMARY CARE, [Referring] - 7 Days Prescriptions: amLODIPine 5 mg PO QDAY 30 Days #30 tablet carvediloL [Coreg] 6.25 mg PO BID 30 Days #60 tablet Aspirin EC [Ecotrin] 325 mg PO QDAY 30 Days #30 tablet Furosemide [Lasix TAB] 40 mg PO QDAY 30 Days #30 tablet Nitroglycerin [Nitrostat] 0.4 mg SL Q5M PRN 30 Days #30 tablet PRN Reason: Chest Pain Insulin NPH/Regular [NovoLIN 70/30] 30 unit SUB-Q BIDDIAB #2 vial Albuterol Sulfate [Proventil Hfa] 6.7 gm IH Q4HR PRN 30 Days #2 hfa.aer.ad PRN Reason: Wheezing Levothyroxine [Synthroid] 88 mcg PO QAM 30 Days #30 tablet lisinopriL [Zestril TAB] 5 mg PO QDAY 30 Days #30 tablet
[2021-08-16 19:42] VITALS: BP 118/60
--- NOTE | 2021-08-20 14:15 | Electrocardiograph Report ---
[facility] Test Date: 2021-08-15 Test Time: 00:44:03 Pat Name: FABIÁN FORDE Department: Room: A454 Gender: F Scheduling Assistant: DENNIS DIXONB: 1965 Requested By: CLAUDIA HART Order Number: [id number] Reading MD: Drew Hanson Measurements Intervals [place] Rate: 95 P: 112 VA: 182 QRS: -78 QRSD: 124 T: 68 QT: 420 QTc: 528 Interpretive Statements Sinus rhythm Nonspecific IVCD with LAD Left ventricular hypertrophy Possible old anterior myocardial infarction No previous ECG available for comparison Electronically Signed On 08-20-2021 14:14:52 EDT by Drew Hanson
--- NOTE | 2021-08-20 14:28 | Electrocardiograph Report ---
[facility] Test Date: 2021-08-16 Test Time: 07:22:55 Pat Name: FABIÁN FORDE Department: Room: A454 1 Gender: F [employer] Worker: YESENIA : 1965 Requested By: BLAKE BILLINGSLEY Order Number: [id number] Reading MD: Drew Hanson Measurements Intervals [place] Rate: 75 P: 67 CT: 202 QRS: -61 QRSD: 122 T: 34 QT: 472 QTc: 528 Interpretive Statements Sinus rhythm Borderline prolonged CT interval Left axis deviation Nonspecific intraventricular conduction delay Compared to ECG 08/15/2021 00:44:03 No significant change Electronically Signed On 08-20-2021 14:27:44 EDT by Drew Hanson
== END 2021-08-16 20:34 | disposition home health service (06) | DRG 948 ==
LOC: ED 18:32 → 4A 08-15 02:22
PROVIDERS: ADMIT Internal Medicine Geriatric Medicine; ATTEND Student in an Organized Health Care Education/Training Program
DX: R79.89 Other specified abnormal findings of blood chemistry (principal); I42.8 Other cardiomyopathies; Z68.43 Body mass index [BMI] 50.0-59.9, adult; J96.10 Chronic respiratory failure, unspecified whether with hypoxia or hypercapnia; E66.01 Morbid (severe) obesity due to excess calories; J44.9 Chronic obstructive pulmonary disease, unspecified; I11.0 Hypertensive heart disease with heart failure; I50.9 Heart failure, unspecified; E11.9 Type 2 diabetes mellitus without complications; E03.9 Hypothyroidism, unspecified; G40.909 Epilepsy, unspecified, not intractable, without status epilepticus; F32.9 Major depressive disorder, single episode, unspecified; Z59.0 Homelessness; Z79.82 Long term (current) use of aspirin; Z79.4 Long term (current) use of insulin; Z79.899 Other long term (current) drug therapy
CPT/HCPCS: 36415; 70450; 71045; 80048; 80053; 80061; 82962; 83880; 84484; 85025; 85610; 93005; 94640; 94760; G0378; J1650; J1815